=== PATIENT | female | born 1955 ===

== ENCOUNTER 2020-10-24 13:28 | Outpatient (REF) | payer OTHER, SELFPAY | END 2020-10-24 13:29 | disposition home or self-care (01) | LOC: HO.LAB 13:28 | PROVIDERS: Visit Provider Internal Medicine | DX: Z20.822 Contact with and (suspected) exposure to COVID-19 (principal) | CPT/HCPCS: 36415; C9803; U0003; U0005 ==

== ENCOUNTER 2020-11-02 10:21 | Outpatient (REF) | payer OTHER, SELFPAY ==
[2020-11-02 11:36] LABS: Hematocrit 40.6 % (37-47); Hemoglobin 13.1 g/dl (12.0-16.0); Mean Corpuscular HGB Conc 32.3 g/dl (31.0-35.0); Mean Corpuscular Hemoglobin 27.8 pg (27.0-33.0); Mean Platelet Volume 12.9 fL (9.4-12.3); Red Blood Count 4.72 X10*6/uL (4.20-5.50); Red Cell Distribution Width 15.6 % (11.0-16.0); White Blood Count 6.4 X10*3/uL (4.8-10.8)
[2020-11-02 11:51] LABS: Platelet Count 75 X10*3/uL (160-400)
[2020-11-02 12:10] LABS: Alanine Aminotransferase 10 U/L (0-31); Albumin Level 4.2 g/dL (3.5-5.0); Alkaline Phosphatase 98 U/L (39-117); Anion Gap 13 (12-20); Aspartate Amino Transferase 15 U/L (5-31); Bilirubin Direct 0.2 mg/dL (0.0-0.5); Bilirubin Total 0.5 mg/dL (0.0-1.0); Blood Urea Nitrogen 15 mg/dL (9-16); Calcium 9.4 mg/dL (8.4-10.2); Carbon Dioxide 24 mmol/L (22-29); Chloride 107 mmol/L (96-108); Estimated Glomerular Filt Rate > 60; Glucose Random 88 mg/dL (60-115); Sodium 140 mmol/L (135-145); Total Protein 7.5 g/dL (6.5-8.0); ~HepC Num1 0.12 S/CO (0.00-0.79); ~Hepatitis C Antibody Nonreactive (Nonreactive)
[2020-11-03 17:11] LABS: Absolute CD3 Count 1320 cells/uL (840-3060); Absolute CD4 Count 172 cells/uL (490-1740); Absolute CD8 Count 1124 cells/uL (180-1170); Absolute Lymphocytes 1622 cells/uL (850-3900); CD4 CD8 Ratio 0.15 (0.86-5.00); Percent CD3 Cells 81 % (57-85); Percent CD4 Cells 11 % (30-61); Percent CD8 Cells 69 % (12-42)
[2020-11-05 07:57] LABS: HIV RNA PCR Qn Copies 81 copies/mL (NOT DETECTED); HIV RNA PCR Qn Log Copies 1.91 (NOT DETECTED)
== END 2020-11-02 10:22 | disposition home or self-care (01) ==
LOC: HO.LAB 10:21
PROVIDERS: PCP Internal Medicine; Visit Provider Internal Medicine
DX: B20 Human immunodeficiency virus [HIV] disease (principal)
CPT/HCPCS: 36415; 80048; 80076; 85027; 86359; 86360; 86803; 87536

== ENCOUNTER → 2020-11-18 10:55 | Outpatient (BNVA) | payer OTHER, SELFPAY | PROVIDERS: PCP Internal Medicine; Visit Provider Internal Medicine ==

== ENCOUNTER → 2020-11-28 13:54 | Outpatient (BNVA) | payer OTHER, SELFPAY | PROVIDERS: PCP Internal Medicine; Visit Provider Internal Medicine | DX: B20 Human immunodeficiency virus [HIV] disease (principal) | CPT/HCPCS: 99212 ==

== ENCOUNTER 2020-12-26 09:24 | Outpatient (REF) | payer OTHER, SELFPAY ==
[2020-12-31 02:42] LABS: HPV 16 RNA NOT DETECTED (NOT DETECTED); HPV mRNA E6/E7 rflx Detected (Not Detected)
== END 2020-12-26 09:25 | disposition home or self-care (01) ==
LOC: HO.LAB 09:24
PROVIDERS: PCP Internal Medicine; Visit Provider Obstetrics & Gynecology
DX: Z01.419 Encounter for gynecological examination (general) (routine) without abnormal findings (principal); Z11.51 Encounter for screening for human papillomavirus (HPV)
CPT/HCPCS: 87624; 87625; 88141; 88142

== ENCOUNTER → 2021-01-31 09:27 | Outpatient (BNVA) | payer OTHER, SELFPAY | PROVIDERS: PCP Internal Medicine; Visit Provider Nurse Practitioner ==

== ENCOUNTER 2021-02-01 14:12 | Outpatient (REF) | payer OTHER, SELFPAY | END 2021-02-01 14:13 | disposition home or self-care (01) | LOC: HO.LAB 14:12 | PROVIDERS: Visit Provider Internal Medicine | DX: Z20.822 Contact with and (suspected) exposure to COVID-19 (principal) | CPT/HCPCS: C9803; U0003; U0005 ==

== ENCOUNTER 2021-02-14 08:49 | Outpatient (REF) | payer OTHER, SELFPAY | END 2021-02-14 08:50 | disposition home or self-care (01) | LOC: HO.LAB 08:49 | PROVIDERS: PCP Internal Medicine; Visit Provider Obstetrics & Gynecology | DX: N87.0 Mild cervical dysplasia (principal) | CPT/HCPCS: 57454; 88305 ==

== ENCOUNTER 2021-02-17 08:46 | Outpatient (REF) | payer OTHER, SELFPAY ==
--- NOTE | ~2021-02-17 | MM_ITS ---
EXAMINATION: MM SCREENING DIGITAL BREAST TOMOSYNTHESIS, BILATERAL CLINICAL INFORMATION: Screening. Asymptomatic. The lifetime risk of breast cancer based on the Tyrer-Cuzick Model is 4%. COMPARISON: Mammography: 07/03/2019, 06/27/2018, 06/25/2017, 04/26/2016 TECHNIQUE: Digital breast tomosynthesis is performed in both the craniocaudal and mediolateral oblique views along with computer-aided detection (CAD). Synthesized 2D images are generated from the tomosynthesis. FINDINGS: There are scattered areas of fibroglandular density (ACR BI-RADS breast composition Category b). There are no significant masses, abnormal calcifications, or other abnormalities. There is a circumscribed intramammary node approximately 4 mm posterior upper outer left breast and a circumscribed intramammary node approximately 5 mm mid upper outer right breast without significant change from prior exam 2014. No developing density. The skin contours are smooth. No significant changes. MM/MM tomosynthesis screening BI IMPRESSION: No significant changes from prior exams. ASSESSMENT: BI-RADS 2: Benign RECOMMENDATION: Routine annual mammography screening. This patient's information was entered into a reminder system with a target due date for their next mammogram.
== END 2021-02-17 08:47 | disposition home or self-care (01) ==
LOC: HO.MAMMO 08:46
PROVIDERS: Visit Provider Obstetrics & Gynecology
DX: Z12.31 Encounter for screening mammogram for malignant neoplasm of breast (principal)
CPT/HCPCS: 77063; 77067

== ENCOUNTER → 2021-02-28 12:55 | Outpatient (BNVA) | payer OTHER, SELFPAY | PROVIDERS: PCP Internal Medicine; Visit Provider Obstetrics & Gynecology ==

== ENCOUNTER → 2021-03-06 10:32 | Outpatient (BNVA) | payer OTHER, SELFPAY | PROVIDERS: PCP Internal Medicine; Visit Provider Obstetrics & Gynecology | DX: N87.0 Mild cervical dysplasia (principal) | CPT/HCPCS: 99212 ==

== ENCOUNTER 2021-03-10 10:46 | Day surgery (SDC) | payer OTHER, SELFPAY ==
--- NOTE | 2021-03-08 11:58 | HO.ANESPROP2 ---
Documented by User: Dalia Cast 03/08/21 12:00 HPI - Anesthesia Eval Consult details Narrative: 65yo F for Cone LEEP PMFSH Active Problems Active Problems: All Active Problems (Updated 02/28/21 @ 13:29 by Geo Tariq MD) MUSHTAQ I (cervical intraepithelial neoplasia I) (Acute) LGSIL (low grade squamous intraepithelial dysplasia) (Acute) Family history of colon cancer (Acute) Well woman exam (Acute) Tobacco abuse (Acute) Hypertriglyceridemia (Acute) Carpal tunnel syndrome, left (Acute) Anxiety and depression (Acute) HIV (human immunodeficiency virus infection) (Acute) Past Medical History Medical History Anxiety and depression Carpal tunnel syndrome, left MUSHTAQ II (cervical intraepithelial neoplasia II) COVID-19 vaccine administered Dysplasia of cervix, low grade (MUSHTAQ 1) HIV (human immunodeficiency virus infection) Hypertriglyceridemia Insomnia Osteoporosis Tobacco abuse Family History Family History Father Lung cancer Mother Colon cancer CVD (cardiovascular disease) Stroke Maternal Grandmother Uterine cancer Sister Breast cancer Surgical History Surgical History History of orthopedic surgery History of surgery History of tubal ligation Hx of colonoscopy Social History Social History (Updated 03/10/21 @ 11:31 by Katie Hutson) Alcohol intake: never Patient Tobacco Use Status: Current everyday Tobacco user Cigarettes Per Day: 6 Smoked in Last 30 Days: Yes Use of substances other than those prescribed or required for medical reasons: No Are you DNR?: No Advance Directives: No Advance Directives Information Provided: Yes Meds Allergies Allergy/AdvReac Type Severity Reaction Status Date / Time No Known Allergies Allergy Verified 03/10/21 10:54 [No Known Allergies*] Exam Exam Date and Time: March 08, 2021 115 Assessment and Plan Assessment Anesthesia Assessment: Chart Reviewed Documented by User: Katie Hutson 03/10/21 11:33 [facility] Past Medical History Medical History Anxiety and depression Carpal tunnel syndrome, left MUSHTAQ II (cervical intraepithelial neoplasia II) COVID-19 vaccine administered Dysplasia of cervix, low grade (MUSHTAQ 1) HIV (human immunodeficiency virus infection) Hypertriglyceridemia Insomnia Osteoporosis Tobacco abuse Family History Family History Father Lung cancer Mother Colon cancer CVD (cardiovascular disease) Stroke Maternal Grandmother Uterine cancer Sister Breast cancer Family history of problems with anesthesia: No Surgical History Surgical History History of orthopedic surgery History of surgery History of tubal ligation Hx of colonoscopy History of Problems with Anesthesia: No Social History Social History (Updated 03/10/21 @ 11:31 by Katie Hutson) Alcohol intake: never Patient Tobacco Use Status: Current everyday Tobacco user Cigarettes Per Day: 6 Smoked in Last 30 Days: Yes Use of substances other than those prescribed or required for medical reasons: No Are you DNR?: No Advance Directives: No Advance Directives Information Provided: Yes Meds Allergies Allergy/AdvReac Type Severity Reaction Status Date / Time No Known Allergies Allergy Verified 03/10/21 10:54 [No Known Allergies*] Exam Height,Weight and Vital Signs: Vital Signs Temp Pulse Resp BP Pulse Ox 03/10/21 11:00 99.0 F 81 16 146/76 H 98 Airway Mallampati Class: II TM Dist: >3cm Neck ROM: Full Loose/Missing/Broken Teeth: Yes Heart: RRR Lungs: CTAB Assessment and Plan Assessment Anesthesia Assessment: Anesthesia Plan Discussed and Chart Reviewed Final Anesthetic Review NPO: Yes ASA Class: II Final Preanesthetic Review: No Changes in Pt Med Stat, Meds/Allgs Chart Reviewed, Consent Obtained/Reviewed and Anes Risks/Benef Reviewed Patient Risk: Low Procedure Risk: Low Assessment/Block/Sedation in SS: Assess/Block/Sedation-SS Anesthetic Plan Anesthetic Plan: GA Disposition: Standard PACU
[2021-03-10 11:00] VITALS: BP 146/76; PULSE 81; RESP 16; TEMP 37.2; O2SAT 98; BMI 21.4
--- NOTE | 2021-03-10 11:11 | MHC.SHP ---
Pre-Procedural Eval Section A The patient is an INPATIENT: No Changes since office visit: No Cold of Flu in the past 2 weeks, No New Medical Problems, No Changes in Medication and No Patient answered all questions The History & Physical has been completed within 30 days and I have reviewed it.: Yes Section B Chief Complaint: mild cervical dysplasia Allergies: Allergies Allergy/AdvReac Type Severity Reaction Status Date / Time No Known Allergies Allergy Verified 03/10/21 10:54 [No Known Allergies*] Plan Diagnosis/Plan: Unchanged I have reviewed the history and physical and performed a pertinent physical examination on my patient. No changes have occurred unless specified.
--- NOTE | 2021-03-10 11:52 | PM.OP ---
Brief Operative Note Date of Service: 09/02/20 Pre-op diagnosis: Persistent MUSHTAQ I with + ECC Post-op diagnosis: same Procedure: LEEP CONE with post CONE ECC Surgeon: Geo Tariq MD Anesthesia: local and other (Paracervical block) Was an Telecommunication Engineer used for this Procedure?: No Estimated blood loss (mL): 0 Pathology: other (Cerv cone , Endocx, Post cone ECC) Condition: stable Disposition: other (Home)
--- NOTE | 2021-03-10 11:53 | P.OP_ITS ---
Operative Note Operative Note Date of Service: 09/02/20 Narrative: Preop diagnosis: Persistent MUSHTAQ I with + ECC Operation: LEEP Cone with post cone ECC Post op diagnosis: same Anesthesia: paracervical block Complications: none Pathology: cervical Cone with suture @ 12 o'clock with endocervix & post cone RCC QBL: minimal Procedure: The patient was put in the dorsal lithotomy position, was prepped and draped in the usual sterile fashion. A sterile speculum was inserted inside the pa tient vagina. Using Lugol solution the cervix with Dyed with Lugol solution to identifiy the abnormal demarcating line. 10 cc of Marcaine0.5% with epinephrine were given at 2,4 , 8, and 10 o'clock. Using a Large-size loop wire, the cervical was excised followed by the endocervix, post cone ECC was done afterwards. Hemostasis was assured using cautery and Monsel solution. All instruments were taken out of the patient's vaginal cavity. the patient tolerated the procedure well and was discharged home with the following instructions: call if temperature is above 100.4, vaginal bleeding, abdominal pain or nausea or vomiting. Follow-up in the office in 2 weeks for postop visit
[2021-03-10 12:03] VITALS: BP 114/65; PULSE 86; RESP 14; TEMP 36.7; O2SAT 100
[2021-03-10 12:08] VITALS: BP 118/65; PULSE 84; RESP 16; O2SAT 99
[2021-03-10 12:13] VITALS: BP 122/72; PULSE 90; RESP 16; O2SAT 99
[2021-03-10] MEDS: oxyCODONE HCl Immed Release 5 MG TABLET PO (12:14)
[2021-03-10] MEDS: Acetaminophen 325 MG TABLET 650 MG PO (12:15)
[2021-03-10 12:18] VITALS: BP 128/83; PULSE 94; RESP 16; O2SAT 99
[2021-03-10 12:33] VITALS: BP 145/85; PULSE 90; RESP 16; TEMP 36.7; O2SAT 99
== END 2021-03-10 13:10 ==
LOC: HO.SSS 10:46
PROVIDERS: PCP Internal Medicine; Visit Provider Obstetrics & Gynecology
PROC: 0UBC7ZZ Excision of Cervix, Via Natural or Artificial Opening (ICD-10-PCS; CPT 57522; principal; 2021-03-10 12:30)
DX: N87.0 Mild cervical dysplasia (principal); F41.8 Other specified anxiety disorders; B20 Human immunodeficiency virus [HIV] disease; M81.0 Age-related osteoporosis without current pathological fracture; Z79.899 Other long term (current) drug therapy; F17.210 Nicotine dependence, cigarettes, uncomplicated
CPT/HCPCS: 57522; 88305; 88307; J1100; J2250; J2405; J3010

== ENCOUNTER → 2021-03-22 11:28 | Outpatient (BNVA) | payer OTHER, SELFPAY | PROVIDERS: PCP Internal Medicine; Visit Provider Obstetrics & Gynecology ==

== ENCOUNTER 2021-06-05 09:56 | Outpatient (REF) | payer OTHER, SELFPAY | END 2021-06-05 09:57 | disposition home or self-care (01) | LOC: HO.LAB 09:56 | PROVIDERS: PCP Internal Medicine; Visit Provider Internal Medicine | DX: Z20.822 Contact with and (suspected) exposure to COVID-19 (principal) | CPT/HCPCS: C9803; U0003; U0005 ==

== ENCOUNTER 2021-06-27 09:20 | Outpatient (REF) | payer OTHER, SELFPAY ==
[2021-06-27 09:55] LABS: Hematocrit 43.9 % (37-47); Hemoglobin 14.8 g/dl (12.0-16.0); Mean Corpuscular HGB Conc 33.7 g/dl (31.0-35.0); Mean Corpuscular Hemoglobin 29.1 pg (27.0-33.0); Mean Corpuscular Volume 86.4 fL (80-98); Mean Platelet Volume 12.2 fL (9.4-12.3); Red Blood Count 5.08 X10*6/uL (4.20-5.50); Red Cell Distribution Width 14.1 % (11.0-16.0); White Blood Count 5.7 X10*3/uL (4.8-10.8)
[2021-06-27 09:57] LABS: Platelet Count 59 X10*3/uL (160-400)
[2021-06-27 10:50] LABS: Alanine Aminotransferase 11 U/L (0-31); Albumin Level 4.5 g/dL (3.5-5.0); Alkaline Phosphatase 100 U/L (39-117); Anion Gap 12 (12-20); Aspartate Amino Transferase 15 U/L (5-31); Bilirubin Direct 0.2 mg/dL (0.0-0.5); Bilirubin Total 0.6 mg/dL (0.0-1.0); Blood Urea Nitrogen 11 mg/dL (9-16); Calcium 9.8 mg/dL (8.4-10.2); Carbon Dioxide 25 mmol/L (22-29); Chloride 110 mmol/L (96-108); Estimated Glomerular Filt Rate > 60; Glucose Random 101 mg/dL (60-115); Sodium 143 mmol/L (135-145); Total Protein 7.9 g/dL (6.5-8.0)
[2021-06-27 11:16] LABS: ~HepC Num1 0.09 S/CO (0.00-0.79); ~Hepatitis C Antibody Nonreactive (Nonreactive)
[2021-06-28 12:26] LABS: Absolute CD3 Count 902 cells/uL (840-3060); Absolute CD4 Count 123 cells/uL (490-1740); Absolute CD8 Count 776 cells/uL (180-1170); Absolute Lymphocytes 1092 cells/uL (850-3900); CD4 CD8 Ratio 0.16 (0.86-5.00); Percent CD3 Cells 83 % (57-85); Percent CD4 Cells 11 % (30-61); Percent CD8 Cells 71 % (12-42)
[2021-06-30 14:55] LABS: HIV RNA PCR Qn Copies 240 copies/mL (NOT DETECTED); HIV RNA PCR Qn Log Copies 2.38 (NOT DETECTED)
== END 2021-06-27 09:21 | disposition home or self-care (01) ==
LOC: HO.LAB 09:20
PROVIDERS: PCP Internal Medicine; Visit Provider Internal Medicine
DX: B20 Human immunodeficiency virus [HIV] disease (principal)
CPT/HCPCS: 36415; 80048; 80076; 85027; 86359; 86360; 86803; 87536

== ENCOUNTER 2021-07-03 20:00 | Emergency (ER) | payer OTHER, SELFPAY ==
--- NOTE | ~2021-07-03 | XR_ITS ---
EXAMINATION: X-RAY THORACIC SPINE X-RAY LUMBAR SPINE CLINICAL INFORMATION: Back pain. COMPARISON: Chest radiograph, 2 views, dated from 06/22/2019. TECHNIQUE: 3 views of the thoracic spine. 3 views of the lumbar spine. FINDINGS: Thoracic spine: No evidence of acute fractures or malalignment. Vertebral body heights and disc spaces are preserved. Posterior elements appear intact. Limited visualization of the clavicles and ribs demonstrate no abnormalities. Visualized lungs are clear. Lumbar spine: No evidence of acute compression deformities. There is very minimal 2 to 3 mm of retrolisthesis of L5 on S1. Otherwise, alignment is entirely anatomic. There is moderate disc space narrowing and facet arthropathy at L5-S1 leading to certain degree of central canal stenosis and neural foraminal encroachment. Visualized bony structures of the pelvis are intact. XR/XR thoracic spine 3V IMPRESSION: 1. Thoracic spine: No acute compression deformities or malalignment. 2. Lumbar spine: No acute compression deformities or traumatic listhesis. Moderate number spondylosis at L5-S1 with mild retrolisthesis and bilateral facet arthropathy leading to neural foraminal encroachment.
--- NOTE | ~2021-07-03 | XR_ITS ---
EXAMINATION: X-RAY THORACIC SPINE X-RAY LUMBAR SPINE CLINICAL INFORMATION: Back pain. COMPARISON: Chest radiograph, 2 views, dated from 06/22/2019. TECHNIQUE: 3 views of the thoracic spine. 3 views of the lumbar spine. FINDINGS: Thoracic spine: No evidence of acute fractures or malalignment. Vertebral body heights and disc spaces are preserved. Posterior elements appear intact. Limited visualization of the clavicles and ribs demonstrate no abnormalities. Visualized lungs are clear. Lumbar spine: No evidence of acute compression deformities. There is very minimal 2 to 3 mm of retrolisthesis of L5 on S1. Otherwise, alignment is entirely anatomic. There is moderate disc space narrowing and facet arthropathy at L5-S1 leading to certain degree of central canal stenosis and neural foraminal encroachment. Visualized bony structures of the pelvis are intact. XR/XR lumbar spine 2-3V IMPRESSION: 1. Thoracic spine: No acute compression deformities or malalignment. 2. Lumbar spine: No acute compression deformities or traumatic listhesis. Moderate number spondylosis at L5-S1 with mild retrolisthesis and bilateral facet arthropathy leading to neural foraminal encroachment.
[2021-07-03 20:17] VITALS: BP 158/86; PULSE 82; RESP 16; TEMP 36.7; O2SAT 97; BMI 21.2
--- NOTE | 2021-07-03 23:52 | ED.BACK ---
HPI - Back Pain/Injury General Chief Complaint: Back Pain/Injury Stated Complaint: Back pain/Headache Time Seen by Provider: 07/03/21 23:08 Source: patient Mode of arrival: ambulatory Limitations: no limitations History of Present Illness HPI Narrative: Patient presents to the ED for thoracic/lumbar back pain. Patient states no fever, chills, nausea, abdominal pain, dysuria, hematuria, flank pain, chest pain, shortness of breath, or urinary/bowel incontinence. Related Data Previous Rx's Medication Instructions Recorded dolutegravir 50 mg tablet (Tivicay) 50 mg PO DAILY 90 Days #90 tab 11/28/20 emtricitabine 200 mg-tenofovir 1 tab PO DAILY #90 tab 11/28/20 alafenamide fumarate 25 mg tablet zolpidem 10 mg tablet 10 mg PO BEDTIME PRN 30 Days #90 06/29/21 tab naproxen 500 mg tablet 500 mg PO BID PRN 10 Days #20 tab 07/04/21 prednisone 20 mg tablet 60 mg PO DAILY 5 Days #15 tab 07/04/21 Allergies Allergy/AdvReac Type Severity Reaction Status Date / Time No Known Allergies Allergy Verified 06/29/21 10:34 [No Known Allergies*] Review of Systems Review of Systems: Yes all other systems are reviewed and are negative Constitutional: Constitutional: Reports as per HPI and Reports no additional constitutional complaints Eyes: Eyes: Reports as per HPI and Reports no additional eye complaints ENT: Reports system reviewed and no additional complaints, except as documented and Reports as per HPI Cardiovascular: Cardiovascular: Reports as per HPI and Reports no additional cardiovascular complaints Respiratory: Respiratory: Reports as per HPI and Reports no additional respiratory complaints Gastrointestinal: Gastrointestinal: Reports as per HPI and Reports no additional gastrointestinal complaints Genitourinary: Genitourinary: Reports no additional female genitourinary complaints and Reports as per HPI Musculoskeletal: Musculoskeletal: Reports no additional musculoskeletal complaints, Reports as per HPI and Reports back pain Neurologic: Reports system reviewed and no additional complaints, except as documented and Reports as per HPI Psychiatric: Psychiatric: Reports no additional psychiatric complaints and Reports as per HPI PMFSH Past Medical History Medical History (Updated 07/04/21 @ 00:37 by MONTY Crowe) Carpal tunnel syndrome, left MUSHTAQ II (cervical intraepithelial neoplasia II) HIV (human immunodeficiency virus infection) Hx LEEP (loop electrosurgical excision procedure), cervix, Hypertriglyceridemia Insomnia Osteoporosis Skin cancer Thrombocytopenia Tobacco abuse Surgical History History of orthopedic surgery History of surgery History of tubal ligation Hx of colonoscopy Family History Family History Father Lung cancer Mother Colon cancer CVD (cardiovascular disease) Stroke Maternal Grandmother Uterine cancer Sister Breast cancer Social History Social History Housing: Apartment Alcohol intake: never Patient Tobacco Use Status: Current everyday Tobacco user Cigarettes Per Day: 6 e-Cigarette/Vaping Use: Never Used Second Hand Smoke Exposure: No Advance Directives: No Advance Directives Information Provided: No Patient : No service: No Current occupational status: disabled Physical Exam Vital Signs: Vital Signs: Last Vital Signs Temp 98.1 F 07/03/21 20:17 Pulse 82 07/03/21 20:17 Resp 16 07/03/21 20:17 BP 158/86 H 07/03/21 20:17 Pulse Ox 97 07/03/21 20:17 Body Mass Index 21.2 Const: General: cooperative, healthy appearing, comfortable, no acute distress, well developed, alert, awake and Physically active Orientation/consciousness: oriented to time and patient oriented x3 HENMT: Head: Yes normal to inspection, Yes No palpable skull fracture present, Yes normocephalic, Yes atraumatic and No abrasion Eyes: General: appearance normal, both eyes and all related structures Neck: Neck: Yes normal visual inspection, Yes full ROM, Yes no lymphadenopathy, Yes no meningeal signs, Yes trachea midline, Yes supple and No tender Chest: Chest palpation & inspection: normal inspection of the chest and normal palpation of entire chest wall Resp: Effort & Inspection: normal respiratory effort and able to speak in complete sentences Auscultation: clear to auscultation bilaterally Cardio: Jugular venous distension: no JVD Heart sounds: S1 normal heart sound present and S2 normal heart sound present GI: Inspection: Yes normal to inspection and Yes abdominal wall ecchymosis Palpation (GI): Soft to palpation, not firm, nontender, no guarding and not rigid : General: No CVA tenderness and Yes no CVA tenderness Back/Spine/Pelvis: Back: no CVA tenderness, No CVA tenderness and back tenderness (thoracic/lumbar spine tenderness.) Skin: General skin exam: no rashes or lesions noted and elasticity normal Neuro: General: oriented to time, patient oriented x3, gait normal, no meningeal signs and CN's II-XI intact bilaterally Cranial nerves: Yes CN's II-XII intact bilaterally Extrem: General: Yes normal to inspection and Yes full ROM Right upper extremity: normal to inspection Psych: Appearance: grossly normal, well kempt and not disheveled Course Course Course Narrative: Patient is not in any distress. patient sent for xrays. Meds ordered Reevaluation(s) Reevaluation #1: Thoracic x-ray normal. Lumbar x-ray shows severe arthritis with possible nerve impingement. Patient to be discharged. Not Suspecting cauda equinus syndrome. Not suspecting epidural abscess. Time: 12:36 MDM - Back Pain/Injury MDM Narrative Medical decision making narrative: Lumbar radiculopathy Discharge Plan Discharge Clinical Impression: Lumbar radiculopathy Patient Disposition: Home, Self-Care Instructions: Lumbar Radiculopathy (ED) Additional Instructions: X-ray shows arthritis of the spine with signs of possible nerve impingement. You need MRI by PCP for follow-up. Please follow-up with primary care provider. Return to ED for any urinary/bowel incontinence, severe back pain, paralysis of lower extremities, nausea, vomiting, flank pain, fever, chills, or any other concerning symptoms. Prescriptions: New naproxen 500 mg tablet 500 mg PO BID PRN (Reason: pain) 10 Days Qty: 20 RF: 0 prednisone 20 mg tablet 60 mg PO DAILY 5 Days Qty: 15 RF: 0 No Action zolpidem 10 mg tablet 10 mg PO BEDTIME PRN (Reason: insomnia) 30 Days Qty: 90 RF: 1 Tivicay 50 mg tablet 50 mg PO DAILY 90 Days Qty: 90 RF: 1 emtricitabine-tenofovir alafen 200-25 mg tablet 1 tab PO DAILY Qty: 90 RF: 1 Stand Alone Forms: Work/School Release Discharge Date/Time: 07/04/21 00:52 Print Language: Singaporean
[2021-07-04] MEDS: Cyclobenzaprine HCl 5 MG TABLET PO (00:24)
[2021-07-04] MEDS: Ibuprofen 800 MG TABLET PO (00:24)
== END 2021-07-04 00:52 | disposition home or self-care (01) ==
PROVIDERS: Emergency Provider Internal Medicine; PCP Internal Medicine
DX: M47.26 Other spondylosis with radiculopathy, lumbar region (principal); M54.6 Pain in thoracic spine
CPT/HCPCS: 72072; 72100; 99283; 99284

== ENCOUNTER → 2021-07-10 11:33 | Outpatient (BNVA) | payer OTHER, SELFPAY | PROVIDERS: Visit Provider Internal Medicine | DX: B20 Human immunodeficiency virus [HIV] disease (principal) | CPT/HCPCS: 99212 ==

== ENCOUNTER 2021-07-25 10:26 | Outpatient (REF) | payer OTHER, SELFPAY ==
--- NOTE | ~2021-07-25 | MM_ITS ---
EXAMINATION: BONE DENSITOMETRY CLINICAL INDICATION: Age-related osteoporosis without current pathological fracture. COMPARISON: Previous BD dated 07/03/2019 and baseline BD dated 10/07/2012. TECHNIQUE: Using a [employer] DXA System (software version: 13.1) manufactured by [employer], dual-energy x-ray absorptiometry was performed of the lumbar spine and left hip. The images are of good technical quality. Summary results are attached. FINDINGS: AP SPINE L1-L4: Current: BMD 0.902 g/cm2, Z-score -0.4, T-score -2.3, osteopenia, 3.8% decrease from previous, 9.8% decrease from baseline (<5% change is not significant). Prior: BMD 0.938 g/cm2. Baseline: BMD 1.000 g/cm2. LEFT FEMUR, NECK: Current: BMD 0.653 g/cm2, Z-score -1.1, T-score -2.8, osteoporosis. Prior: BMD 0.647 g/cm2. Baseline: BMD 0.716 g/cm2. LEFT FEMUR, TOTAL: Current: BMD 0.734 g/cm2, Z-score -0.7, T-score -2.2, osteopenia, 1.1% decrease from previous, 11.8% decrease from baseline (<5% change is not significant). Prior: BMD 0.742 g/cm2. Baseline: BMD 0.832 g/cm2. IDENTIFIED RISK FACTORS: Menopause, glucocorticoids (chronic), height loss, tobacco use (current smoker). HISTORY OF FRACTURE: None listed. MEDICATIONS: Calcium supplements or multivitamin, vitamin D. MM/XR DEXA axial skeleton IMPRESSION: 1. DIAGNOSIS: Osteoporosis based on the lowest T-score value of -2.8 in the femoral neck applying World Health Organization criteria. 2. 2. 10-YEAR FRACTURE RISK PREDICTION, FRAX: According to the guidelines, FRAX calculation should only be performed on patients in the osteopenia bone density category. 3. Treatment Recommendations: NOF guidelines recommend consideration for treatment in postmenopausal women and men age 50 and older presenting with the following: -A hip or vertebral (clinical or morphometric) fracture. -T-score less than or equal to -2.5 at the femoral neck or spine after appropriate evaluation to exclude secondary causes. -Low bone mass at the hip or spine and a 10-year fracture probability by FRAX of greater than or equal to 3% for hip fracture or greater than or equal to 20% for major osteoporotic fracture based on the [place] adapted WHO algorithm. 4. Other Recommendations: All treatment decisions require clinical judgment and consideration of individual patient factors, including patient preferences, comorbidities, previous drug use, risk factors not captured in the FRAX model (e.g. frailty, falls, vitamin D deficiency, increased bone turnover, interval significant decline in bone density) and possible under or overestimation of fracture risk by FRAX. Additional medical evaluation for secondary cause of low bone mineral density may be appropriate. FUTURE SCAN RECOMMENDATION: People with diagnosed cases of osteoporosis or at high risk for fracture should have regular bone mineral density tests. For patients eligible for Medicare, routine testing is allowed once every 2 years. The testing frequency can be increased to one year for patients who have rapidly progressing disease, those who are receiving or discontinuing medical therapy to restore bone mass, or have additional risk factors.
== END 2021-07-25 10:27 | disposition home or self-care (01) ==
LOC: HO.MAMMO 10:26
PROVIDERS: Visit Provider Internal Medicine
DX: Z13.820 Encounter for screening for osteoporosis (principal); M81.0 Age-related osteoporosis without current pathological fracture; Z78.0 Asymptomatic menopausal state; F17.200 Nicotine dependence, unspecified, uncomplicated; Z79.899 Other long term (current) drug therapy
CPT/HCPCS: 77080

== ENCOUNTER 2021-09-24 09:48 | Outpatient (REF) | payer OTHER, SELFPAY ==
[2021-09-24 10:48] LABS: COVID-19 Test Negative (Negative)
== END 2021-09-24 09:49 | disposition home or self-care (01) ==
LOC: HO.LAB 09:48
PROVIDERS: Visit Provider Internal Medicine
DX: Z20.822 Contact with and (suspected) exposure to COVID-19 (principal)
CPT/HCPCS: 36415; 87635; C9803

== ENCOUNTER 2021-11-04 08:32 | Outpatient (REF) | payer OTHER, SELFPAY ==
[2021-11-04 08:44] LABS: MANUAL DIFF FLAG NO
[2021-11-04 10:09] LABS: Alanine Aminotransferase 6 U/L (0-31); Albumin Level 4.1 g/dL (3.5-5.0); Alkaline Phosphatase 98 U/L (39-117); Anion Gap 9 (12-20); Aspartate Amino Transferase 16 U/L (5-31); Bilirubin Total 0.5 mg/dL (0.0-1.0); Blood Urea Nitrogen 15 mg/dL (9-16); Calcium 9.8 mg/dL (8.4-10.2); Carbon Dioxide 29 mmol/L (22-29); Chloride 105 mmol/L (96-108); Cholesterol 176 mg/dL; Estimated Glomerular Filt Rate > 60; Glucose Random 99 mg/dL (60-115); HDL Cholesterol 45 mg/dL; LDL Cholesterol Calculated 111 mg/dl; Potassium 4.4 mmol/L (3.3-5.1); Sodium 139 mmol/L (135-145); Total Protein 7.4 g/dL (6.5-8.0); Triglycerides 103 mg/dL
[2021-11-04 10:11] LABS: Basophils Absolute Auto 0.1 X10*3/uL (0.0-0.2); Basophils Percent Auto 1.7 % (0-2); Eosinophils Absolute Auto 0.3 X10*3/uL (0.0-0.4); Eosinophils Percent Auto 6.3 % (0-4); Hemoglobin 13.8 g/dl (12.0-16.0); Imm Gran Abs Auto 0.01 X10*3/uL (0.00-0.03); Imm Gran Pct Auto 0.2 % (0.0-0.4); Lymphocytes Absolute Auto 1.1 X10*3/uL (1.2-4.9); Lymphocytes Percent Auto 24.1 % (20-40); Mean Corpuscular HGB Conc 32.9 g/dl (31.0-35.0); Mean Corpuscular Hemoglobin 29.1 pg (27.0-33.0); Mean Corpuscular Volume 88.4 fL (80.0-98.0); Monocytes Absolute Auto 0.6 X10*3/uL (0.1-1.2); Monocytes Percent Auto 13.5 % (2-11); Neutrophils Absolute Auto 2.6 x10*3/uL (2.0-8.3); Neutrophils Percent Auto 54.2 % (45-73); Red Blood Count 4.75 X10*6/uL (4.20-5.50); Red Cell Distribution Width 14.2 % (11.0-16.0); White Blood Count 4.7 X10*3/uL (4.8-10.8)
[2021-11-04 10:15] LABS: Free T4 (Free Thyroxine) 0.92 ng/dL (0.71-1.85); Thyroid Stimulating Hormone 1.35 uIU/mL (0.32-4.0); Vitamin D 25-OH Total 28.4 ng/mL (>30)
[2021-11-04 10:40] LABS: Platelet Count 48 X10*3/uL (160-400)
[2021-11-06 05:32] LABS: Vitamin B12 413 pg/mL (200-900)
== END 2021-11-04 08:33 | disposition home or self-care (01) ==
LOC: HO.LAB 08:32
PROVIDERS: PCP Internal Medicine; Visit Provider Internal Medicine
DX: E78.1 Pure hyperglyceridemia (principal); E78.00 Pure hypercholesterolemia, unspecified
CPT/HCPCS: 36415; 80053; 80061; 82306; 82607; 82746; 84439; 84443; 85025

== ENCOUNTER 2021-12-27 09:29 | Outpatient (REF) | payer MEDICARE, MEDICAID, SELFPAY ==
[2021-12-30 09:57] LABS: HPV mRNA E6/E7 rflx Not Detected (Not Detected)
== END 2021-12-27 09:30 | disposition home or self-care (01) ==
LOC: HO.LAB 09:29
PROVIDERS: PCP Internal Medicine; Visit Provider Obstetrics & Gynecology
DX: Z01.419 Encounter for gynecological examination (general) (routine) without abnormal findings (principal); N87.0 Mild cervical dysplasia; M81.0 Age-related osteoporosis without current pathological fracture; N90.4 Leukoplakia of vulva
CPT/HCPCS: 87624; 88142

== ENCOUNTER 2022-01-08 07:56 | Outpatient (REF) | payer MEDICARE, MEDICAID, SELFPAY ==
[2022-01-08 08:15] LABS: MANUAL DIFF FLAG NO
[2022-01-08 08:34] LABS: Basophils Absolute Auto 0.1 X10*3/uL (0.0-0.2); Basophils Percent Auto 1.7 % (0-2); Eosinophils Absolute Auto 0.2 X10*3/uL (0.0-0.4); Hemoglobin 13.5 g/dl (12.0-16.0); Imm Gran Abs Auto 0.01 X10*3/uL (0.00-0.03); Imm Gran Pct Auto 0.2 % (0.0-0.4); Lymphocytes Absolute Auto 1.4 X10*3/uL (1.2-4.9); Lymphocytes Percent Auto 28.4 % (20-40); Mean Corpuscular HGB Conc 32.1 g/dl (31.0-35.0); Mean Corpuscular Hemoglobin 28.5 pg (27.0-33.0); Mean Corpuscular Volume 88.6 fL (80.0-98.0); Mean Platelet Volume 13.8 fL (9.4-12.3); Monocytes Absolute Auto 0.6 X10*3/uL (0.1-1.2); Monocytes Percent Auto 11.8 % (2-11); Neutrophils Absolute Auto 2.6 x10*3/uL (2.0-8.3); Neutrophils Percent Auto 53.9 % (45-73); Red Blood Count 4.74 X10*6/uL (4.20-5.50); Red Cell Distribution Width 13.9 % (11.0-16.0); White Blood Count 4.8 X10*3/uL (4.8-10.8)
[2022-01-08 08:35] LABS: Platelet Count 43 X10*3/uL (160-400)
[2022-01-08 09:03] LABS: Alanine Aminotransferase 11 U/L (0-31); Albumin Level 4.1 g/dL (3.5-5.0); Alkaline Phosphatase 97 U/L (39-117); Anion Gap 9 (12-20); Aspartate Amino Transferase 18 U/L (5-31); Bilirubin Direct 0.2 mg/dL (0.0-0.5); Bilirubin Total 0.5 mg/dL (0.0-1.0); Blood Urea Nitrogen 13 mg/dL (9-16); Calcium 11.1 mg/dL (8.4-10.2); Carbon Dioxide 29 mmol/L (22-29); Chloride 109 mmol/L (96-108); Estimated Glomerular Filt Rate > 60; Glucose Random 83 mg/dL (60-115); Potassium 4.3 mmol/L (3.3-5.1); Sodium 143 mmol/L (135-145); Total Protein 7.3 g/dL (6.5-8.0)
[2022-01-09 13:51] LABS: Absolute CD3 Count 1122 cells/uL (840-3060); Absolute CD4 Count 101 cells/uL (490-1740); Absolute CD8 Count 1006 cells/uL (180-1170); Absolute Lymphocytes 1294 cells/uL (850-3900); Percent CD3 Cells 87 % (57-85); Percent CD4 Cells 8 % (30-61); Percent CD8 Cells 78 % (12-42)
[2022-01-10 22:36] LABS: HIV RNA PCR Qn Copies 4340 copies/mL (NOT DETECTED); HIV RNA PCR Qn Log Copies 3.64 (NOT DETECTED)
== END 2022-01-08 07:57 | disposition home or self-care (01) ==
LOC: HO.LAB 07:56
PROVIDERS: PCP Internal Medicine; Visit Provider Internal Medicine
DX: B20 Human immunodeficiency virus [HIV] disease (principal)
CPT/HCPCS: 36415; 80048; 80076; 85025; 86359; 86360; 87536

== ENCOUNTER 2022-01-17 10:08 | Outpatient (REF) | payer MEDICARE, MEDICAID, SELFPAY | END 2022-01-17 10:09 | disposition home or self-care (01) | LOC: HO.LAB 10:08 | PROVIDERS: PCP Internal Medicine; Visit Provider Obstetrics & Gynecology | DX: N90.4 Leukoplakia of vulva (principal) | CPT/HCPCS: 56605; 88305; 88312; 88342; 88360 ==

== ENCOUNTER → 2022-01-23 10:28 | Outpatient (BNVA) | payer MEDICARE, MEDICAID, SELFPAY | PROVIDERS: PCP Internal Medicine; Visit Provider Internal Medicine | DX: B20 Human immunodeficiency virus [HIV] disease (principal) | CPT/HCPCS: 99212 ==

== ENCOUNTER → 2022-01-31 10:58 | Outpatient (BNVA) | payer MEDICARE, MEDICAID, SELFPAY | PROVIDERS: Visit Provider Obstetrics & Gynecology | DX: N90.0 Mild vulvar dysplasia (principal) | CPT/HCPCS: 99212 ==

== ENCOUNTER 2022-03-06 10:50 | Outpatient (REF) | payer MEDICARE, MEDICAID, SELFPAY | END 2022-03-06 10:51 | disposition home or self-care (01) | LOC: HO.LAB 10:50 | PROVIDERS: Visit Provider Obstetrics & Gynecology | DX: N90.0 Mild vulvar dysplasia (principal); N90.4 Leukoplakia of vulva | CPT/HCPCS: 88305; 88312; 88342; 88360 ==

== ENCOUNTER → 2022-03-19 08:54 | Outpatient (BNVA) | payer OTHER, SELFPAY | PROVIDERS: PCP Internal Medicine; Visit Provider Obstetrics & Gynecology | DX: N90.1 Moderate vulvar dysplasia (principal) | CPT/HCPCS: 99212 ==

== ENCOUNTER 2022-05-26 07:42 | Outpatient (REF) | payer OTHER, SELFPAY ==
[2022-05-29 11:46] LABS: Absolute CD3 Count 860 cells/uL (840-3060); Absolute CD4 Count 104 cells/uL (490-1740); Absolute CD8 Count 757 cells/uL (180-1170); Absolute Lymphocytes 995 cells/uL (850-3900); CD4 CD8 Ratio 0.14 (0.86-5.00); Percent CD3 Cells 86 % (57-85); Percent CD4 Cells 10 % (30-61); Percent CD8 Cells 76 % (12-42)
[2022-05-29 20:47] LABS: HIV RNA PCR Qn Copies 1070 copies/mL (NOT DETECTED); HIV RNA PCR Qn Log Copies 3.03 (NOT DETECTED)
== END 2022-05-26 07:43 | disposition home or self-care (01) ==
LOC: HO.LAB 07:42
PROVIDERS: PCP Internal Medicine; Visit Provider Internal Medicine
DX: B20 Human immunodeficiency virus [HIV] disease (principal)
CPT/HCPCS: 36415; 86359; 86360; 87536

== ENCOUNTER 2022-06-01 11:28 | Outpatient (REF) | payer OTHER, SELFPAY ==
--- NOTE | ~2022-06-01 | MM_ITS ---
EXAMINATION: MM SCREENING DIGITAL BREAST TOMOSYNTHESIS, BILATERAL CLINICAL INFORMATION: Screening. Asymptomatic. The lifetime risk of breast cancer based on the Tyrer-Cuzick Model is 8%. COMPARISON: Mammography: 02/17/2021, 07/03/2019, 06/27/2018, 06/25/2017 TECHNIQUE: Digital breast tomosynthesis is performed in both the craniocaudal and mediolateral oblique views along with computer-aided detection (CAD). Synthesized 2D images are generated from the tomosynthesis. FINDINGS: There are scattered areas of fibroglandular density (ACR BI-RADS breast composition Category b). There are no significant masses, abnormal calcifications, or other abnormalities. There are chronic small intramammary nodes posterior upper outer left breast and mid upper outer right breast again noted. No developing density. No architectural abnormality or significant changes. MM/MM tomosynthesis screening BI IMPRESSION: No mammographic evidence of malignancy. ASSESSMENT: BI-RADS 2: Benign RECOMMENDATION: Routine annual mammography screening. This patient's information was entered into a reminder system with a target due date for their next mammogram.
== END 2022-06-01 11:29 | disposition home or self-care (01) ==
LOC: HO.MAMMO 11:28
PROVIDERS: PCP Internal Medicine; Visit Provider Internal Medicine
DX: Z12.31 Encounter for screening mammogram for malignant neoplasm of breast (principal)
CPT/HCPCS: 77063; 77067

== ENCOUNTER 2022-06-08 11:19 | Outpatient (REF) | payer OTHER, SELFPAY | END 2022-06-08 11:20 | disposition home or self-care (01) | LOC: HO.LAB 11:19 | PROVIDERS: PCP Internal Medicine; Visit Provider Internal Medicine | DX: B20 Human immunodeficiency virus [HIV] disease (principal) | CPT/HCPCS: 36415; 87536; 87900; 87901; 87906; 99212 ==

== ENCOUNTER → 2022-09-26 11:26 | Outpatient (BNVA) | payer OTHER, SELFPAY | PROVIDERS: PCP Internal Medicine; Visit Provider Internal Medicine | DX: B20 Human immunodeficiency virus [HIV] disease (principal) | CPT/HCPCS: 99212 ==

== ENCOUNTER 2022-11-16 10:33 | Outpatient (REF) | payer OTHER, SELFPAY ==
[2022-11-19 14:08] LABS: Absolute CD3 Count 945 cells/uL (840-3060); Absolute CD4 Count 134 cells/uL (490-1740); Absolute CD8 Count 791 cells/uL (180-1170); Absolute Lymphocytes 1108 cells/uL (850-3900); CD4 CD8 Ratio 0.17 (0.86-5.00); Percent CD3 Cells 85 % (57-85); Percent CD4 Cells 12 % (30-61); Percent CD8 Cells 71 % (12-42)
[2022-11-20 14:58] LABS: HIV RNA PCR Qn Copies 149 Copies/mL; HIV RNA PCR Qn Log Copies 2.17 Log cps/mL
== END 2022-11-16 10:34 | disposition home or self-care (01) ==
LOC: HO.LAB 10:33
PROVIDERS: PCP Internal Medicine; Visit Provider Internal Medicine
DX: B20 Human immunodeficiency virus [HIV] disease (principal)
CPT/HCPCS: 36415; 86359; 86360; 87536; 87900; 87901; 87906

== ENCOUNTER → 2022-11-30 10:32 | Outpatient (BNVA) | payer OTHER, SELFPAY | PROVIDERS: PCP Internal Medicine; Visit Provider Internal Medicine | DX: B20 Human immunodeficiency virus [HIV] disease (principal); R05.9 Cough, unspecified | CPT/HCPCS: 99212 ==

== ENCOUNTER 2022-12-10 11:55 | Outpatient (REF) | payer OTHER, SELFPAY ==
--- NOTE | ~2022-12-10 | XR_ITS ---
EXAMINATION: XR CHEST CLINICAL INFORMATION: Cough COMPARISON: 06/22/2019 TECHNIQUE: 2 views of the chest were obtained. FINDINGS: No significant abnormality is noted involving the heart, lungs, mediastinum, bony thorax or soft tissues. XR/XR chest 2V IMPRESSION: Unremarkable examination.
== END 2022-12-10 11:56 | disposition home or self-care (01) ==
LOC: HO.XRAY 11:55
PROVIDERS: PCP Internal Medicine; Visit Provider Internal Medicine
DX: R05.9 Cough, unspecified (principal)
CPT/HCPCS: 71046

== ENCOUNTER 2022-12-15 08:57 | Outpatient (REF) | payer OTHER, SELFPAY ==
[2022-12-15 09:16] LABS: MANUAL DIFF FLAG NO
[2022-12-15 09:31] LABS: Basophils Absolute Auto 0.1 X10*3/uL (0.0-0.2); Basophils Percent Auto 1.8 % (0-2); Eosinophils Absolute Auto 0.1 X10*3/uL (0.0-0.4); Eosinophils Percent Auto 4.1 % (0-4); Hematocrit 43.8 % (37.0-47.0); Hemoglobin 14.4 g/dl (12.0-16.0); Imm Gran Abs Auto 0.01 X10*3/uL (0.00-0.03); Imm Gran Pct Auto 0.3 % (0.0-0.4); Lymphocytes Absolute Auto 0.7 X10*3/uL (1.2-4.9); Lymphocytes Percent Auto 21.6 % (20-40); Mean Corpuscular HGB Conc 32.9 g/dl (31.0-35.0); Mean Corpuscular Hemoglobin 28.2 pg (27.0-33.0); Mean Corpuscular Volume 85.9 fL (80.0-98.0); Monocytes Absolute Auto 0.5 X10*3/uL (0.1-1.2); Monocytes Percent Auto 13.2 % (2-11); Platelet Count 29 X10*3/uL (160-400); Red Cell Distribution Width 14.7 % (11.0-16.0); White Blood Count 3.4 X10*3/uL (4.8-10.8)
[2022-12-15 10:16] LABS: Alanine Aminotransferase 10 U/L (0-31); Albumin Level 4.1 g/dL (3.5-5.0); Alkaline Phosphatase 88 U/L (39-117); Anion Gap 10 (12-20); Aspartate Amino Transferase 19 U/L (5-31); Bilirubin Total 0.5 mg/dL (0.0-1.0); Blood Urea Nitrogen 9 mg/dL (9-16); Calcium 9.2 mg/dL (8.4-10.2); Carbon Dioxide 26 mmol/L (22-29); Chloride 109 mmol/L (96-108); Cholesterol 184 mg/dL; Estimated Glomerular Filt Rate > 60; Glucose Random 101 mg/dL (60-115); HDL Cholesterol 51 mg/dL; LDL Cholesterol Calculated 118 mg/dl; Potassium 4.2 mmol/L (3.3-5.1); Sodium 141 mmol/L (135-145); Total Protein 7.3 g/dL (6.5-8.0); Triglycerides 75 mg/dL
[2022-12-15 10:33] LABS: Folate 7.8 ng/mL (> or = 4.0); Free T4 (Free Thyroxine) 0.88 ng/dL (0.71-1.85); Thyroid Stimulating Hormone 0.83 uIU/mL (0.32-4.0); Vitamin B12 582 pg/mL (200-900); Vitamin D 25-OH Total 34.2 ng/mL (>30)
== END 2022-12-15 08:58 | disposition home or self-care (01) ==
LOC: HO.LAB 08:57
PROVIDERS: PCP Internal Medicine; Visit Provider Internal Medicine
DX: E78.00 Pure hypercholesterolemia, unspecified (principal); E78.1 Pure hyperglyceridemia; M81.0 Age-related osteoporosis without current pathological fracture
CPT/HCPCS: 36415; 80053; 80061; 82306; 82607; 82746; 84439; 84443; 85025

== ENCOUNTER 2023-01-24 11:40 | Outpatient (REF) | payer OTHER, SELFPAY ==
[2023-01-30 06:03] LABS: HPV mRNA E6/E7 rflx Not Detected (Not Detected)
== END 2023-01-24 11:41 | disposition home or self-care (01) ==
LOC: HO.LNP 11:40
PROVIDERS: PCP Internal Medicine; Visit Provider Obstetrics & Gynecology
DX: Z01.419 Encounter for gynecological examination (general) (routine) without abnormal findings (principal); Z11.51 Encounter for screening for human papillomavirus (HPV)
CPT/HCPCS: 87624; 88142

== ENCOUNTER 2023-03-07 12:44 | Outpatient (REF) | payer OTHER, SELFPAY | END 2023-03-07 12:45 | disposition home or self-care (01) | LOC: HO.LNP 12:44 | PROVIDERS: PCP Internal Medicine; Visit Provider Obstetrics & Gynecology | DX: R87.610 Atypical squamous cells of undetermined significance on cytologic smear of cervix (ASC-US) (principal); N90.1 Moderate vulvar dysplasia | CPT/HCPCS: 57454; 88305; 99212 ==

== ENCOUNTER 2023-03-18 13:30 | Outpatient (REF) | payer OTHER, SELFPAY ==
[2023-03-20 13:09] LABS: Absolute CD3 Count 952 cells/uL (840-3060); Absolute CD4 Count 126 cells/uL (490-1740); Absolute CD8 Count 814 cells/uL (180-1170); Absolute Lymphocytes 1078 cells/uL (850-3900); CD4 CD8 Ratio 0.16 (0.86-5.00); Percent CD3 Cells 88 % (57-85); Percent CD4 Cells 12 % (30-61); Percent CD8 Cells 75 % (12-42)
[2023-03-21 10:14] LABS: HIV RNA PCR Qn Copies 128 Copies/mL; HIV RNA PCR Qn Log Copies 2.11 Log cps/mL
[2023-04-09 08:44] LABS: Date Viral Load Collected NG; Value of Last HIV Viral Load NG copies/mL
== END 2023-03-18 13:31 | disposition home or self-care (01) ==
LOC: HO.LAB 13:30
PROVIDERS: PCP Internal Medicine; Visit Provider Internal Medicine
DX: B20 Human immunodeficiency virus [HIV] disease (principal)
CPT/HCPCS: 36415; 86359; 86360; 87536; 87900; 87901; 87906

== ENCOUNTER 2023-04-03 11:35 | Outpatient (AMB) | payer OTHER, SELFPAY ==
[2023-04-03 11:56] VITALS: BP 138/70; PULSE 68; O2SAT 98; BMI 22.1
--- NOTE | 2023-04-03 11:56 | MHC.OFFVIS ---
Intake Vital Signs 04/03/23 11:56 Height 5 ft 2 in Weight 121 lb BMI 22.1 BP 138/70 Pulse 68 Pulse Oximetry (%) 98 Intake Visit Reasons: HIV follow up possible labs and check x ray Fruit Farmer Required: Yes Fruit Farmer Name: Delano #[id number] Allergies No Known Allergies [No Known Allergies*] Allergy (Verified 04/03/23 11:59) HPI HIV follow up possible labs and check x ray HPI Details She is here for HIV care. She changed from Descovy/tivicay to Biktarvy on 09/26. She had CD4 count of 126 on 03/18 and was 134 on 11/16. Her viral load was 128 on 03/20. Her viral load was 149 on 11/16. She continues on atovaquone. She had skin cancer on nose. She had surgery and is doing wll and has had left scientologist lesion as well. [facility] Medical History Carpal tunnel syndrome, left MUSHTAQ II (cervical intraepithelial neoplasia II) Cough HIV (human immunodeficiency virus infection) Hx LEEP (loop electrosurgical excision procedure), cervix, Hypertriglyceridemia Insomnia Osteoporosis Skin cancer Tobacco abuse Well woman exam Surgical History History of orthopedic surgery History of surgery History of tubal ligation Hx of colonoscopy Family History Father Lung cancer Mother Colon cancer CVD (cardiovascular disease) Stroke Maternal Grandmother Uterine cancer Sister Breast cancer Social History Household Members: Spouse and Children Housing: Apartment Are you a primary home health care social worker to a significant other at home: No Do you presently have visiting nurse or other home services: No Alcohol intake: never Patient Tobacco Use Status: Former Tobacco user Quit Date: 02/2023 Tobacco use type: Cigarette Cigarettes Per Day: 3 Years Smoked: 20 stopped mid February 2023 e-Cigarette/Vaping Use: Never Used Second Hand Smoke Exposure: No service: No Current occupational status: disabled Cognitive needs: No Hearing needs: No Vision needs: Yes Female Reproductive History Menstrual Age of Menarche: 13 Review of Systems Const All systems reviewed & are unremarkable except as noted in HPI and below Physical Exam Vital Signs: Last Vital Signs Pulse 68 04/03/23 11:56 BP 138/70 04/03/23 11:56 Pulse Ox 98 04/03/23 11:56 BMI result Body Mass Index 22.1 Const General: cooperative Orientation/consciousness: patient oriented x3 HEENT Head: Yes normal to inspection Mouth: Normal oral and palatal mucosa present Eyes General: appearance normal, both eyes and all related structures Pupils: Equal, round and reactive pupils present Resp Effort & Inspection: normal respiratory effort Cardio Rate: regular rate Rhythm: regular rhythm GI Palpation (GI): Soft to palpation and nontender General: Yes no CVA tenderness Back/Spine/Pelvis Back: no CVA tenderness Skin Other: left scientologist lesion less than 1 cm nasal lesion improving Neuro General: patient oriented x3 Cranial nerves: Yes CN's II-XII intact bilaterally and Yes Equal, round and reactive pupils present Extrem General: Yes normal to inspection Psych Appearance: grossly normal Assessment & Plan Assessment & Plan (1) 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 She has skin cancer on nose doing well. Code(s): B20 - Human immunodeficiency virus [HIV] disease Plan: Continue Biktarvy. Continue atovaquone. Return in four months. Check CD4 count and viral load before. Labs in July. 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
== END 2023-04-03 13:11 | disposition home or self-care (01) ==
LOC: HO.HID 11:35
PROVIDERS: PCP Internal Medicine; Visit Provider Internal Medicine
DX: C44.321 Squamous cell carcinoma of skin of nose (principal); R87.610 Atypical squamous cells of undetermined significance on cytologic smear of cervix (ASC-US); B20 Human immunodeficiency virus [HIV] disease
CPT/HCPCS: 99213

== ENCOUNTER → 2023-04-03 11:35 | Outpatient (BNVA) | payer OTHER, SELFPAY | PROVIDERS: PCP Internal Medicine; Visit Provider Internal Medicine | DX: B20 Human immunodeficiency virus [HIV] disease (principal); C44.321 Squamous cell carcinoma of skin of nose; R87.610 Atypical squamous cells of undetermined significance on cytologic smear of cervix (ASC-US) | CPT/HCPCS: 99212 ==

== ENCOUNTER 2023-05-06 10:02 | Outpatient (REF) | payer OTHER, SELFPAY ==
--- NOTE | 2023-05-06 10:06 | ECG_ITS ---
Test Reason : THROMBOCYTCPENIA Blood Pressure : / mmHG Vent. Rate : 071 BPM Atrial Rate : 071 BPM P-R Int : 162 ms QRS Dur : 070 ms QT Int : 366 ms P-R-T Axes : 077 068 067 degrees QTc Int : 397 ms Normal sinus rhythm Normal ECG When compared with ECG of 07-JAN-2017 07:18, No significant change was found Referred By: Geovany Sevilla Electronically Signed By:PIPER LUJAN MD
[2023-05-09 19:43] LABS: HIV RNA PCR Qn Copies 39 Copies/mL; HIV RNA PCR Qn Log Copies 1.59 Log cps/mL
== END 2023-05-06 10:03 | disposition home or self-care (01) ==
LOC: HO.LAB 10:02
PROVIDERS: Internal Medicine; PCP Internal Medicine; Visit Provider Internal Medicine
DX: D69.6 Thrombocytopenia, unspecified (principal)
CPT/HCPCS: 36415; 87536; 87900; 87901; 93005

== ENCOUNTER → 2023-05-06 10:06 | Outpatient (BNV) | payer OTHER, SELFPAY | PROVIDERS: PCP Internal Medicine; Visit Provider Internal Medicine Cardiovascular Disease | DX: D69.6 Thrombocytopenia, unspecified (principal) | CPT/HCPCS: 93010 ==

== ENCOUNTER 2023-07-05 10:43 | Outpatient (AMB) | payer OTHER, SELFPAY ==
[2023-07-05 10:48] VITALS: BP 142/82; PULSE 90; O2SAT 98; BMI 20.8
--- NOTE | 2023-07-05 10:48 | A.OFFPC_ITS ---
Vital Signs 3 07/05/23 10:48 Height 5 ft 2 in Weight 114 lb BMI 20.8 BP 142/82 H Blood Pressure Location Lt brachial Position Sitting Pulse 90 Pulse Source Pulse Oximeter Pulse Oximetry (%) 98 Oxygen Delivery Method Room Air Intake Visit Reasons: Thrombocytopenia tobacco abuse HIV Allergies No Known Allergies [No Known Allergies*] Allergy (Verified 07/05/23 10:49) Medication List - Last Reconciled 07/05/23 by Geovany Sevilla MD alendronate 70 mg PO QWEEK mdxjwfvfd-isjhvbvh-aoroxfv ala 50-200-25 mg (Biktarvy) 1 tab PO DAILY 30 days citalopram 1 tab PO DAILY fluticasone propionate 50 mcg/actuation (Flonase Allergy Relief) 2 sprays intranasal DAILY varenicline (Chantix Starting Month Box) PO PER PKG DIR varenicline (Chantix Continuing Month Box) 1 mg PO BID zolpidem 10 mg PO BEDTIME PRN 30 days Tobacco use date assessed: 03/22/23 Fall risk assessment: No Falls in past year Last assessed Fall Risk: 07/05/23 Dental Screening Dental Screen Date: 07/05/23 Did you have a dental visit in the last 12 months?: Yes Did you have a dental problem in the last 6 months where you did not have access to dental care?: No Was dental information given to patient?: Patient has dentist HPI Thrombocytopenia tobacco abuse HIV 2 HPI0 Details 67-year-old female smoker with a history of thrombocytopenia hypercholesterolemia HIV coming in for follow-up. Last seen in February 2023. Patient is up-to-date with colonoscopy mammogram due May bone density due July. Review of the notes because of the skin cancer was referred to the surgeon nasal supratip lesion biopsy-proven squamous cell carcinoma patient was advised to stop smoking asking for preoperative evaluation. 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 surgery done June 06, 2023 Dr. Luther will have another procedure 07/18/2023 patient is asking for a supplement because she is getting thinner and discussed about and sure. [facility] Medical History Carpal tunnel syndrome, left MUSHTAQ II (cervical intraepithelial neoplasia II) Cough HIV (human immunodeficiency virus infection) Hx LEEP (loop electrosurgical excision procedure), cervix, Hypertriglyceridemia Insomnia Osteoporosis Skin cancer Tobacco abuse Well woman exam Surgical History History of orthopedic surgery History of surgery History of tubal ligation Hx of colonoscopy Family History (Updated 07/05/23 @ 10:50 by Viki Camara CMA) Father Lung cancer Mother Colon cancer CVD (cardiovascular disease) Stroke Maternal Grandmother Uterine cancer Sister Breast cancer Social History Household Members: Spouse and Children Housing: Apartment Are you a primary hearing healthcare practitioner to a significant other at home: No Do you presently have visiting nurse or other home services: No Alcohol intake: never Patient Tobacco Use Status: Former Tobacco user Quit Date: 02/2023 Tobacco use type: Cigarette Cigarettes Per Day: 3 Years Smoked: 20 stopped mid February 2023 Packs per year/per ci.00 e-Cigarette/Vaping Use: Never Used Second Hand Smoke Exposure: No service: No Current occupational status: disabled Cognitive needs: No Hearing needs: No Vision needs: Yes Female Reproductive History Menstrual Age of Menarche: 13 Questionnaire PHQ-9 Over the last 2 weeks, how often have you been bothered by any of the following problems? 1. Little interest or pleasure in doing things: not at all 2. Feeling down, depressed, or hopeless: not at all 3. Trouble falling or staying asleep, or sleeping too much: not at all 4. Feeling tired or having little energy: not at all 5. Poor appetite or overeating: not at all 6. Feeling bad about yourself - or that you are a failure or have let yourself or your family down: not at all 7. Trouble concentrating on things, such as reading the newspaper or watching television: not at all 8. Moving or speaking so slowly that other people could have noticed. Or the opposite - being so fidgety or restless that you have been moving around a lot more than usual: not at all 9. Thoughts that you would be better off or of hurting yourself in some way: not at all Total score: 0 Depression Screening Interpretation: Negative Depression Screening Done: Yes Source: Developed by Tess ArriagaW. Cliff, Moises Winslow and colleagues, with an educational sarah from [employer]. Thrive Questionnaire Date Thrive assessed: 12/18/22 AUDIT C Alcohol Use Questionnaire (AUDIT-C) 1. How often do you have a drink containing alcohol?: Never 3. How often do you have six or more drinks on one occasion?: Never Total Score: 0 Score Reviewed/Action Taken: Yes ERAN-7 AMB Questionnaire ERAN-7 Date ERAN - 7 assessed: 12/18/22 Source: Developed by Drs. Amilcar Lr, Moises Graham and colleagues, with an educational sarah from [employer]. Physical exam (Primary Care) Vital Signs: Last Vital Signs Pulse 90 07/05/23 10:48 BP 142/82 H 07/05/23 10:48 Pulse Ox 98 07/05/23 10:48 Oxygen Delivery Method Room Air 07/05/23 10:48 BMI result Body Mass Index 20.8 Tobacco/Smoking Status: Tobacco use Status Tobacco use date assessed 03/22/23 07/05/23 10:50 Patient Tobacco Use Status Former Tobacco user 07/05/23 10:50 Tobacco use type Cigarette 07/05/23 10:50 e-Cigarette/Vaping Use Never Used 07/05/23 10:50 PHQ-9: PHQ-9 Score PHQ-9: Total score 0 07/05/23 10:50 Depression Screening Interpretation: Negative Thrive Assessment: Date of Thrive Assessment Date Thrive assessed 12/18/22 07/05/23 10:50 Const General: alert; No acute distress [facility] Head images: 2 1. Incisional scar on her forehead and nose no redness. 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 Luther Code(s): C44.321 - Squamous cell carcinoma of skin of nose Plan: Patient had a surgery already and there is a plan for a 2nd operation later this month (2) PAULA II (vulvar intraepithelial neoplasia II): Comment: 04/2023 Code(s): N90.1 - Moderate vulvar dysplasia Plan: Patient has been follow-up with OB gynecology and scheduled/planned vaginal surgery (3) Tobacco abuse: Code(s): Z72.0 - Tobacco use Plan: Patient strongly advised to stop smoking! (4) HIV (human immunodeficiency virus infection): Comment: She has been doing well with Biktarvy. She has skin cancer on nose doing well. Code(s): B20 - Human immunodeficiency virus [HIV] disease Plan: Continue to follow-up with Infectious Disease (5) Underweight: Code(s): R63.6 - Underweight Plan: With loss of weight patient is prescribed Ensure. 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
== END 2023-07-05 11:40 | disposition home or self-care (01) ==
PROVIDERS: PCP Internal Medicine; Visit Provider Internal Medicine
DX: C44.321 Squamous cell carcinoma of skin of nose (principal); N90.1 Moderate vulvar dysplasia; Z72.0 Tobacco use; B20 Human immunodeficiency virus [HIV] disease; R63.6 Underweight
CPT/HCPCS: 99214

== ENCOUNTER 2023-07-08 10:19 | Outpatient (AMB) | payer OTHER, SELFPAY ==
[2023-07-08 10:37] VITALS: BP 136/80; BMI 20.6
--- NOTE | 2023-07-08 10:37 | A.OFFVIS_ITS ---
Intake Vital Signs 07/08/23 10:37 Height 5 ft 2 in Weight 112 lb 6.972 oz BMI 20.6 BP 136/80 Intake Visit Reasons: colpo results Ice Platform Supervisor Required: Yes Ice Platform Supervisor Language: Hydro Pneumatic Tester Name: Chloe ZURITA Information Interpreted: non-clinical & clinical Accompanied by: Self / Same As Patient Allergies No Known Allergies [No Known Allergies*] Allergy (Verified 07/08/23 10:44) Post menopausal: Yes HPI HPI Comments History of Present Illness Details Presenting post colpo for follow-up. The patient is doing well with no complaints. The pathology showed the following: A. Endocervix, curettage: Squamous and endocervical glandular epithelium with inflammation and reactive changes; negative for dysplasia. B. Cervix, 1:00, biopsy: Squamous mucosa with reactive changes; no endocervical glandular component present. C. Cervix, 6:00, biopsy: Squamous mucosa with reactive changes; negative for dysplasia; no endocervical glandular component present. D. Cervix, 7:00, biopsy: Fragment of predominantly denuded cervical stroma with rare reactive squamous cells without dysplasia; no endocervical glandular component present. E. Cervix, 11:00, biopsy: Squamous mucosa with inflammation and reactive changes and rare detached endocervical glandular epithelium; negative for dysplasia PFSH Medical History Cough Well woman exam Skin cancer Hx LEEP (loop electrosurgical excision procedure), cervix, Tobacco abuse Osteoporosis MUSHTAQ II (cervical intraepithelial neoplasia II) Hypertriglyceridemia Insomnia Carpal tunnel syndrome, left HIV (human immunodeficiency virus infection) Surgical History Hx of colonoscopy History of orthopedic surgery History of surgery History of tubal ligation Family History Father Lung cancer Mother Colon cancer CVD (cardiovascular disease) Stroke Maternal Grandmother Uterine cancer Sister Breast cancer Social History Household Members: Spouse and Children Housing: Apartment Are you a primary medicare contact specialist to a significant other at home: No Do you presently have visiting nurse or other home services: No Alcohol intake: never Patient Tobacco Use Status: Former Tobacco user Quit Date: 02/2023 Tobacco use type: Cigarette Cigarettes Per Day: 3 Years Smoked: 20 stopped mid February 2023 e-Cigarette/Vaping Use: Never Used Second Hand Smoke Exposure: No service: No Current occupational status: disabled Cognitive needs: No Hearing needs: No Vision needs: Yes Female Reproductive History Menstrual Age of Menarche: 13 Review of Systems Const All systems reviewed & are unremarkable except as noted in HPI and below Reports as per HPI and Reports no additional complaints GI Reports no additional complaints Reports no additional complaints Physical Exam Vital Signs: Last Vital Signs BP 136/80 07/08/23 10:37 BMI result Body Mass Index 20.6 Assessment & Plan Assessment & Plan (1) ASCUS of cervix with negative high risk HPV: Code(s): R87.610 - Atypical squamous cells of undetermined significance on cytologic smear of cervix (ASC-US) Plan: Discussed with the patient the pathology results of the colposcopy biopsies & endocervical curettage ( negative). Discussed with the patient the sensitivity specificity, positive and negative predictive value in detecting cervical cancer in addition discussed the regression, persistence and progression rates. Recommended co-testing in 12 months, if cytology and or HPV are abnormal will proceed was colposcopy biopsy and endocervical curettage. Instructions given to the patient to schedule a co test appointment in 1 year. All questions answered the patient verbalized understanding. (2) PAULA III (vulvar intraepithelial neoplasia III): Code(s): D07.1 - Carcinoma in situ of vulva Plan: The patient has been followed up with [facility] and is being treated with topical treatment and has a follow-up appointment scheduled soon. Coding Level of Care Code Est Pt Level 3 (53293) Diagnoses ASCUS of cervix with negative high risk HPV R87.610 PAULA III (vulvar intraepithelial neoplasia III) D07.1
== END 2023-07-08 11:20 | disposition home or self-care (01) ==
LOC: HO.HWS 10:19
PROVIDERS: PCP Internal Medicine; Visit Provider Obstetrics & Gynecology
DX: R87.610 Atypical squamous cells of undetermined significance on cytologic smear of cervix (ASC-US) (principal); D07.1 Carcinoma in situ of vulva
CPT/HCPCS: 99213

== ENCOUNTER → 2023-07-08 10:19 | Outpatient (BNVA) | payer MEDICARE, MEDICAID, SELFPAY | PROVIDERS: PCP Internal Medicine; Visit Provider Obstetrics & Gynecology | DX: R87.610 Atypical squamous cells of undetermined significance on cytologic smear of cervix (ASC-US) (principal); D07.1 Carcinoma in situ of vulva | CPT/HCPCS: 99212 ==

== ENCOUNTER 2023-08-24 09:54 | Outpatient (REF) | payer OTHER, SELFPAY ==
[2023-08-24 10:21] LABS: MANUAL DIFF FLAG NO
[2023-08-24 10:55] LABS: Basophils Absolute Auto 0.1 X10*3/uL (0.0-0.2); Eosinophils Absolute Auto 0.2 X10*3/uL (0.0-0.4); Hematocrit 39.6 % (37.0-47.0); Hemoglobin 12.4 g/dl (12.0-16.0); Imm Gran Abs Auto 0.01 X10*3/uL (0.00-0.03); Imm Gran Pct Auto 0.2 % (0.0-0.4); Lymphocytes Absolute Auto 1.2 X10*3/uL (1.2-4.9); Lymphocytes Percent Auto 23.7 % (20-40); Mean Corpuscular HGB Conc 31.3 g/dl (31.0-35.0); Mean Corpuscular Hemoglobin 26.7 pg (27.0-33.0); Mean Corpuscular Volume 85.3 fL (80.0-98.0); Monocytes Absolute Auto 0.5 X10*3/uL (0.1-1.2); Monocytes Percent Auto 10.5 % (2-11); Neutrophils Percent Auto 61.6 % (45-73); Platelet Count 87 X10*3/uL (160-400); Red Blood Count 4.64 X10*6/uL (4.20-5.50); Red Cell Distribution Width 14.1 % (11.0-16.0); White Blood Count 4.9 X10*3/uL (4.8-10.8)
[2023-08-24 11:11] LABS: Alanine Aminotransferase 10 U/L (0-31); Albumin Level 4.1 g/dL (3.5-5.0); Alkaline Phosphatase 95 U/L (39-117); Anion Gap 10 (12-20); Aspartate Amino Transferase 19 U/L (5-31); Bilirubin Total 0.4 mg/dL (0.0-1.0); Blood Urea Nitrogen 13 mg/dL (9-16); Calcium 9.9 mg/dL (8.4-10.2); Carbon Dioxide 27 mmol/L (22-29); Chloride 109 mmol/L (96-108); Estimated Glomerular Filt Rate > 60; Glucose Random 97 mg/dL (60-115); Lactate Dehydrogenase 164 U/L (122-220); Potassium 4.3 mmol/L (3.3-5.1); Sodium 142 mmol/L (135-145); Total Protein 8.1 g/dL (6.5-8.0)
== END 2023-08-24 09:55 | disposition home or self-care (01) ==
LOC: HO.LAB 09:54
PROVIDERS: Internal Medicine Medical Oncology; Visit Provider Internal Medicine
DX: D69.6 Thrombocytopenia, unspecified (principal)
CPT/HCPCS: 36415; 80053; 83615; 85025

== ENCOUNTER 2023-08-30 08:23 | Outpatient (REF) | payer MEDICARE, MEDICAID, SELFPAY ==
--- NOTE | ~2023-08-30 | MM_ITS ---
EXAMINATION: BONE DENSITOMETRY CLINICAL INDICATION: Osteoporosis without current pathological fracture. COMPARISON: Previous BD dated 07/25/2021 and baseline BD dated 10/07/2012. TECHNIQUE: Using a LEHR DXA System (software version: 13.1) manufactured by [employer], dual-energy x-ray absorptiometry was performed of the lumbar spine and left hip. The images are of good technical quality. Summary results are attached. FINDINGS: LEFT FEMUR, NECK: Current: BMD 0.651 g/cm2, Z-score -1.0, T-score -2.8, osteoporosis. Prior: BMD 0.653 g/cm2. Baseline: BMD 0.716 g/cm2. LEFT FEMUR, TOTAL: Current: BMD 0.707 g/cm2, Z-score -0.8, T-score -2.4, osteopenia, 3.7% decrease from previous, 15.0% decrease from baseline (<5% change is not significant). Prior: BMD 0.734 g/cm2. Baseline: BMD 0.832 g/cm2. AP SPINE L1-L4: Current: BMD 0.815 g/cm2, Z-score -1.0, T-score -3.0, osteoporosis, 9.6% decrease from previous, 18.5% decrease from baseline (<5% change is not significant). Prior: BMD 0.902 g/cm2. Baseline: BMD 1.000 g/cm2. IDENTIFIED RISK FACTORS: Menopause. HISTORY OF FRACTURE: None listed. MEDICATIONS: Multivitamin, vitamin D. MM/XR DEXA axial skeleton IMPRESSION: 1. DIAGNOSIS: Osteoporosis based on the lowest T-score value of -3.0 in the lumbar spine applying World Health Organization criteria. 2. 10-YEAR FRACTURE RISK PREDICTION, FRAX: According to the guidelines, FRAX calculation should only be performed on patients in the osteopenia bone density category. Therefore, FRAX was not performed on this patient. 3. Treatment Recommendations: NOF guidelines recommend consideration for treatment in postmenopausal women and men age 50 and older presenting with the following: -A hip or vertebral (clinical or morphometric) fracture. -T-score less than or equal to -2.5 at the femoral neck or spine after appropriate evaluation to exclude secondary causes. -Low bone mass at the hip or spine and a 10-year fracture probability by FRAX of greater than or equal to 3% for hip fracture or greater than or equal to 20% for major osteoporotic fracture based on the [place] adapted WHO algorithm. 4. Other Recommendations: All treatment decisions require clinical judgment and consideration of individual patient factors, including patient preferences, comorbidities, previous drug use, risk factors not captured in the FRAX model (e.g. frailty, falls, vitamin D deficiency, increased bone turnover, interval significant decline in bone density) and possible under or overestimation of fracture risk by FRAX. Additional medical evaluation for secondary cause of low bone mineral density may be appropriate. FUTURE SCAN RECOMMENDATION: People with diagnosed cases of osteoporosis or at high risk for fracture should have regular bone mineral density tests. For patients eligible for Medicare, routine testing is allowed once every 2 years. The testing frequency can be increased to one year for patients who have rapidly progressing disease, those who are receiving or discontinuing medical therapy to restore bone mass, or have additional risk factors.
[2023-09-02 07:29] LABS: Absolute CD3 Count 900 cells/uL (840-3060); Absolute CD4 Count 93 cells/uL (490-1740); Absolute CD8 Count 790 cells/uL (180-1170); Absolute Lymphocytes 1070 cells/uL (850-3900); CD4 CD8 Ratio 0.12 (0.86-5.00); Percent CD3 Cells 84 % (57-85); Percent CD4 Cells 9 % (30-61); Percent CD8 Cells 74 % (12-42)
[2023-09-03 18:35] LABS: HIV RNA PCR Qn Copies 747 Copies/mL; HIV RNA PCR Qn Log Copies 2.87 Log cps/mL
[2023-09-18 21:58] LABS: HIV Genotype DETECTED
== END 2023-08-30 08:24 | disposition home or self-care (01) ==
LOC: HO.MAMMO 08:23
PROVIDERS: PCP Internal Medicine; Referring Provider Internal Medicine; Visit Provider Obstetrics & Gynecology
DX: M81.0 Age-related osteoporosis without current pathological fracture (principal); B20 Human immunodeficiency virus [HIV] disease; Z12.31 Encounter for screening mammogram for malignant neoplasm of breast
CPT/HCPCS: 36415; 77063; 77067; 77080; 86359; 86360; 87536; 87900; 87901

== ENCOUNTER → 2023-08-30 08:45 | Outpatient (BNV) | payer MEDICARE, SELFPAY | PROVIDERS: PCP Internal Medicine; Referring Provider Internal Medicine; Visit Provider Radiology Diagnostic Radiology | DX: Z12.31 Encounter for screening mammogram for malignant neoplasm of breast (principal) | CPT/HCPCS: 77063; 77067 ==

== ENCOUNTER 2023-09-09 11:40 | Outpatient (AMB) | payer MEDICARE, SELFPAY ==
--- NOTE | 2023-09-09 11:40 | MHC.OFFVIS ---
Intake Vital Signs 09/09/23 11:55 Height 5 ft 2 in Weight 118 lb BMI 21.6 Pulse 99 Pulse Source Pulse Oximeter Temp 98.2 F Temp Source Oral Pulse Oximetry (%) 98 Intake Visit Reasons: 4 month HIV follow/labs Cultural Centre Manager Required: Yes Cultural Centre Manager Name: Fish Gonzalez CMA Allergies No Known Allergies [No Known Allergies*] Allergy (Unverified 09/12/23 13:19) HPI 4 month HIV follow/labs HPI Details She has CD4 count of 93 on 08/30 and viral load 747. She has not picked up Biktarvy since 07/20 at pharmacy. She says she is taking daily. She has no complaints [facility] Medical History Cough Well woman exam Skin cancer Hx LEEP (loop electrosurgical excision procedure), cervix, Tobacco abuse Osteoporosis MUSHTAQ II (cervical intraepithelial neoplasia II) Hypertriglyceridemia Insomnia Carpal tunnel syndrome, left HIV (human immunodeficiency virus infection) Surgical History Hx of colonoscopy History of orthopedic surgery History of surgery History of tubal ligation Family History Father Lung cancer Mother Colon cancer CVD (cardiovascular disease) Stroke Maternal Grandmother Uterine cancer Sister Breast cancer Social History Household Members: Spouse and Children Housing: Apartment Are you a primary health care / medical job titles to a significant other at home: No Do you presently have visiting nurse or other home services: No Alcohol intake: never Comment: medicated in pacu Patient Tobacco Use Status: Former Tobacco user Quit Date: 02/2023 Tobacco use type: Cigarette Cigarettes Per Day: 3 Years Smoked: 20 stopped mid February 2023 e-Cigarette/Vaping Use: Never Used Second Hand Smoke Exposure: No service: No Current occupational status: disabled Cognitive needs: No Hearing needs: No Vision needs: Yes Female Reproductive History Menstrual Age of Menarche: 13 Review of Systems Const All systems reviewed & are unremarkable except as noted in HPI and below Physical Exam Vital Signs: Last Vital Signs Temp 98.2 F 09/09/23 11:55 Pulse 99 12/18/23 11:55 Pulse Ox 98 09/09/23 11:55 BMI result Body Mass Index 21.6 Const General: cooperative Orientation/consciousness: patient oriented x3 HEENT Other: extensive scarring on face from malignancy surgery Mouth: Normal oral and palatal mucosa present Eyes General: appearance normal, both eyes and all related structures Pupils: Equal, round and reactive pupils present Resp Effort & Inspection: normal respiratory effort Cardio Rate: regular rate Rhythm: regular rhythm GI Palpation (GI): Soft to palpation and nontender General: Yes no CVA tenderness Back/Spine/Pelvis Back: no CVA tenderness Skin General skin exam: no rashes or lesions noted Neuro General: patient oriented x3 Cranial nerves: Yes CN's II-XII intact bilaterally and Yes Equal, round and reactive pupils present Extrem General: Yes normal to inspection Psych Appearance: grossly normal Assessment & Plan Assessment & Plan (1) HIV (human immunodeficiency virus infection): Comment: She has not apparently been taking Biktarvy. Code(s): B20 - Human immunodeficiency virus [HIV] disease Plan: Recheck cell count and CD4 count soon See in three months. Adherence stressed as her face wont heal and she will be more prone to clotting and malignancy without perfect adherence. Orders: Orders Lymphocyte Count, Total 3 Months B20 - Human immunodeficiency virus [HIV] disease HIV-1 RNA QN PCR Expanded 3 Months B20 - Human immunodeficiency virus [HIV] disease Coding Level of Care Code Est Pt Level 4 (66677) Diagnoses HIV (human immunodeficiency virus infection) B20
[2023-09-09 11:55] VITALS: PULSE 99; TEMP 36.8; O2SAT 98; BMI 21.6
== END 2023-09-09 13:47 | disposition home or self-care (01) ==
LOC: HO.HID 11:40
PROVIDERS: PCP Internal Medicine; Visit Provider Internal Medicine
DX: B20 Human immunodeficiency virus [HIV] disease (principal)
CPT/HCPCS: 99214

== ENCOUNTER → 2023-09-09 11:40 | Outpatient (BNVA) | payer MEDICARE, SELFPAY | PROVIDERS: PCP Internal Medicine; Visit Provider Internal Medicine | DX: B20 Human immunodeficiency virus [HIV] disease (principal) | CPT/HCPCS: 99212 ==

== ENCOUNTER 2023-09-12 13:18 | Outpatient (AMB) | payer OTHER, SELFPAY ==
--- NOTE | 2023-09-12 13:18 | MHC.OFFVIS ---
Intake Intake Visit Reasons: Dexa results Mica Splitter Required: Yes Mica Splitter Language: Ion Implant Machine Operator Name: Chloe Cox RMA Information Interpreted: non-clinical & clinical Allergies No Known Allergies [No Known Allergies*] Allergy (Unverified 09/12/23 13:19) HPI HPI Comments History of Present Illness Details The patient scheduled tele health visit for DEXA scan follow-up. The results showed the following: LEFT FEMUR, NECK: Current: BMD 0.651 g/cm2, Z-score -1.0, T-score -2.8, osteoporosis. Prior: BMD 0.653 g/cm2. Baseline: BMD 0.716 g/cm2. LEFT FEMUR, TOTAL: Current: BMD 0.707 g/cm2, Z-score -0.8, T-score -2.4, osteopenia, 3.7% decrease from previous, 15.0% decrease from baseline (<5% change is not significant). Prior: BMD 0.734 g/cm2. Baseline: BMD 0.832 g/cm2. AP SPINE L1-L4: Current: BMD 0.815 g/cm2, Z-score -1.0, T-score -3.0, osteoporosis, 9.6% decrease from previous, 18.5% decrease from baseline (<5% change is not significant). Prior: BMD 0.902 g/cm2. Baseline: BMD 1.000 g/cm2. [facility] Medical History Cough Well woman exam Skin cancer Hx LEEP (loop electrosurgical excision procedure), cervix, Tobacco abuse Osteoporosis MUSHTAQ II (cervical intraepithelial neoplasia II) Hypertriglyceridemia Insomnia Carpal tunnel syndrome, left HIV (human immunodeficiency virus infection) Surgical History Hx of colonoscopy History of orthopedic surgery History of surgery History of tubal ligation Family History Father Lung cancer Mother Colon cancer CVD (cardiovascular disease) Stroke Maternal Grandmother Uterine cancer Sister Breast cancer Social History Household Members: Spouse and Children Housing: Apartment Are you a primary care support representative to a significant other at home: No Do you presently have visiting nurse or other home services: No Alcohol intake: never Comment: medicated in pacu Patient Tobacco Use Status: Former Tobacco user Quit Date: 02/2023 Tobacco use type: Cigarette Cigarettes Per Day: 3 Years Smoked: 20 stopped mid February 2023 e-Cigarette/Vaping Use: Never Used Second Hand Smoke Exposure: No service: No Current occupational status: disabled Cognitive needs: No Hearing needs: No Vision needs: Yes Female Reproductive History Menstrual Age of Menarche: 13 Review of Systems Const All systems reviewed & are unremarkable except as noted in HPI and below Reports as per HPI and Reports no additional complaints GI Reports no additional complaints Reports no additional complaints Assessment & Plan Assessment & Plan (1) Osteoporosis: Comment: Decrease in bone density over last 2 years on alendronate Code(s): M81.0 - Age-related osteoporosis without current pathological fracture Plan: Discussed with the patient the results of bone density showing a decrease order last 2 years in spite of being on alendronate, recommended referral to rheumatology for further management. All questions answered, the patient verbalized understanding. Instructed the patient to call our office back in case a referral appointment is not scheduled, missed or canceled so that we will assist on rescheduling another appointment, the patient verbalized understanding agreed with the plan. I spent a total of 20 minutes reviewing the chart, talking to the patient via phone and documenting in the medical record. Orders: Referrals Rheumatology Referral M81.0 - Age-related osteoporosis without current pathological fracture Telehealth Telehealth Location of provider rendering services: practice address Location of patient: address on file Patient Identification confirmed using: Name, : Yes Telehealth method: voice only Patient verbally consented to treatment: Yes Patient verbally consented to billing insurance company: Yes Patient informed of any privacy concerns related to visit: Yes Coding Level of Care Code Tele Est Pt Level 1 (52286) Diagnoses Osteoporosis M81.0
== END 2023-09-12 14:26 | disposition home or self-care (01) ==
LOC: HO.HWS 13:18
PROVIDERS: Visit Provider Obstetrics & Gynecology
DX: M81.0 Age-related osteoporosis without current pathological fracture (principal)
CPT/HCPCS: 99211

== ENCOUNTER → 2023-09-12 13:18 | Outpatient (BNVA) | payer MEDICARE, MEDICAID, SELFPAY | PROVIDERS: Visit Provider Obstetrics & Gynecology ==

== ENCOUNTER 2023-11-09 08:33 | Outpatient (REF) | payer OTHER, SELFPAY ==
[2023-11-09 09:07] LABS: Lymphocyte Count, Total 1.1 X10*3/uL (1.2-4.9)
[2023-11-13 19:43] LABS: HIV RNA PCR Qn Copies 40 copies/mL (NOT DETECTED)
== END 2023-11-09 08:34 | disposition home or self-care (01) ==
LOC: HO.LAB 08:33
PROVIDERS: PCP Internal Medicine; Visit Provider Internal Medicine
DX: B20 Human immunodeficiency virus [HIV] disease (principal)
CPT/HCPCS: 36415; 85048; 87536

== ENCOUNTER 2023-11-18 11:12 | Outpatient (AMB) | payer OTHER, SELFPAY ==
--- NOTE | 2023-11-18 11:16 | MHC.OFFVIS ---
Intake Vital Signs 11/18/23 11:20 Height 5 ft 2 in Weight 119 lb BMI 21.8 Pulse 83 Pulse Source Pulse Oximeter Pulse Oximetry (%) 98 Intake Visit Reasons: hiv follow up meds refill Survey Research Center Director Required: Yes Survey Research Center Director Name: Fish Gonzalez CMA Allergies No Known Allergies [No Known Allergies*] Allergy (Verified 11/18/23 11:20) HPI hiv follow up meds refill HPI Details She is doing well. She has CD4 count of 93 and viral load of 40 on 08/30/2023. She has no complaints. [facility] Medical History Cough Well woman exam Skin cancer Hx LEEP (loop electrosurgical excision procedure), cervix, Tobacco abuse Osteoporosis MUSHTAQ II (cervical intraepithelial neoplasia II) Hypertriglyceridemia Insomnia Carpal tunnel syndrome, left HIV (human immunodeficiency virus infection) Surgical History Hx of colonoscopy History of orthopedic surgery History of surgery History of tubal ligation Family History Father Lung cancer Mother Colon cancer CVD (cardiovascular disease) Stroke Maternal Grandmother Uterine cancer Sister Breast cancer Social History Household Members: Spouse and Children Housing: Apartment Are you a primary daycare provider to a significant other at home: No Do you presently have visiting nurse or other home services: No Alcohol intake: never Comment: medicated in pacu Patient Tobacco Use Status: Former Tobacco user Quit Date: 02/2023 Tobacco use type: Cigarette Cigarettes Per Day: 3 Years Smoked: 20 stopped mid February 2023 e-Cigarette/Vaping Use: Never Used Second Hand Smoke Exposure: No service: No Current occupational status: disabled Cognitive needs: No Hearing needs: No Vision needs: Yes Female Reproductive History Menstrual Age of Menarche: 13 Review of Systems Const All systems reviewed & are unremarkable except as noted in HPI and below Physical Exam Vital Signs: Last Vital Signs Pulse 83 11/18/23 11:20 Pulse Ox 98 11/18/23 11:20 BMI result Body Mass Index 21.8 Const General: cooperative HEENT Head: Yes normal to inspection Face and sinus: Yes normal facial exam Mouth: Normal oral and palatal mucosa present Teeth and gingiva: dentition normal Eyes General: appearance normal, both eyes and all related structures Pupils: Equal, round and reactive pupils present Resp Effort & Inspection: normal respiratory effort Cardio Rate: regular rate Rhythm: regular rhythm GI Palpation (GI): Soft to palpation and nontender General: Yes no CVA tenderness Back/Spine/Pelvis Back: no CVA tenderness Skin General skin exam: no rashes or lesions noted Neuro General: moves all extremities Cranial nerves: Yes Equal, round and reactive pupils present Extrem General: Yes normal to inspection Psych Appearance: grossly normal Assessment & Plan Assessment & Plan (1) HIV (human immunodeficiency virus infection): Comment: She has much improved viral load but still has low CD4 count. Code(s): B20 - Human immunodeficiency virus [HIV] disease Plan: Would continue Biktarvy Check CD4 count and viral load before appointment and see in six months. Orders: Orders HIV-1 RNA QN PCR Expanded 6 Months B20 - Human immunodeficiency virus [HIV] disease Lymphocyte Subset Panel 3 6 Months B20 - Human immunodeficiency virus [HIV] disease Medications: Refilled zmyhjtdcs-zmingqcm-mmuqqto ala 50-200-25 mg (Biktarvy) 1 tab PO DAILY 30 days 30 tabs 5RF Coding Level of Care Code Est Pt Level 3 (44830) Diagnoses HIV (human immunodeficiency virus infection) B20
[2023-11-18 11:20] VITALS: PULSE 83; O2SAT 98; BMI 21.8
== END 2023-11-18 14:09 | disposition home or self-care (01) ==
PROVIDERS: Visit Provider Internal Medicine
DX: B20 Human immunodeficiency virus [HIV] disease (principal)
CPT/HCPCS: 99213

== ENCOUNTER → 2023-11-18 11:12 | Outpatient (BNVA) | payer OTHER, SELFPAY | PROVIDERS: Visit Provider Internal Medicine | DX: B20 Human immunodeficiency virus [HIV] disease (principal) | CPT/HCPCS: 99212 ==

== ENCOUNTER 2024-04-02 10:56 | Outpatient (AMB) | payer OTHER, SELFPAY ==
--- OUTSIDE RECORDS SUMMARY | 2024-04-02 10:58 | XMS_ITS | Continuity of Care Document ---
Author Organization [facility] Richard sandy Address [address] [place] [address] [address] [place] [address]- Care Team Providers Care Statistical Analyst Name Role Phone Geovany Sevilla MD Primary Care Physician Encounter [facility] [id number] Date(s): 03/22/23 - 03/29/23 [facility] [address] [place] [address]- Attending Physician: Valentin Luther MD Referring Physician: Inder Neri MD Allergies, Adverse Reactions, Alerts No Known Medication Allergies Medications alendronate 70 mg oral tablet TAKE 1 TABLET BY MOUTH ONCE WEEKLY Start Date: 03/22/23 Status: Ordered Biktarvy oral tablet TAKE 1 TABLET BY MOUTH EVERY DAY Start Date: 03/22/23 Status: Ordered fluticasone 50 mcg/inh nasal spray SPRAY 2 SPRAYS INTO EACH NOSTRIL DAILY Start Date: 03/22/23 Status: Ordered varenicline 1mg tablet 1 tablet = 1 mg, By Mouth, 2 times a day, # 56 tablet, 0 Refills, Maintenance, 03/22/23 13:33:00 EDT, Tablet, Partial fill upon patient request if the prescription is for a schedule II opioid drug. Start Date: 03/22/23 Status: Ordered zolpidem 10 mg oral tablet TAKE 1 TABLET BY MOUTH AT BEDTIME NEEDED INSOMNIA Start Date: 03/22/23 Status: Ordered Problem List Condition Confirmation Course Effective Dates Status H ealth Status Informant MUSHTAQ II (cervical intraepithelial neoplasia II) Confirmed Active Insomnia Confirmed Active Thrombocytopenia Confirmed Active Tobacco abuse Confirmed Active PAULA II (vulvar intraepithelial neoplasia II) Confirmed Active Vital Signs Most recent to oldest [Reference Range]: 1 Height 153.9 cm (03/22/23 1:32 PM) Weight 53.18 kg (03/22/23 1:32 PM) Body Mass Index [18.5-24.99 kg/m2] 22.45 kg/m2 (03/22/23 1:32 PM) Social History Social History Type Response Smoking Status 5-9 cigarettes (betw een 1/4 to 1/2 pack)/day in last 30 days entered on: 05/14/22 Sex Patient Care team information Care Team Personnel Name: Geovany Sevilla MD Position: Reference Physician Member Role: PCP Address: Address: [address] [place] [address]- Care Team Related Persons Name: EFFIE ALBRECHT Name: THAD ROSE Address: home [address] [place] [id number]
--- OUTSIDE RECORDS SUMMARY | 2024-04-02 10:58 | XMS_ITS | Continuity of Care Document ---
Author Organization [facility] Richard sandy Address [address] [place] [address] [address] [place] [address]- Care Team Providers Care Business Process Manager Name Role Phone Po Geovany PITTMAN Primary Care Physician [phone] [place] [facility] [place](s): 06/13/23 - 06/20/23 [facility] [address] [place] [address]- Attending Physician: Ifeoma Recinos Allergies, Adverse Reactions, Alerts No Known Allergies Medications alendronate 70 mg oral tablet 1 tablet = 70 mg, By Mouth, Every 7 days, TAKE 1 TABLET BY MOUTH ONCE WEEKLY. TAKES ON Start Date: 03/22/23 Status: Ordered Biktarvy oral tablet 1 tablet, By Mouth, Daily before lunch, TAKE 1 TABLET BY MOUTH EVERY DAY Start Date: 03/22/23 Status: Ordered fluticasone 50 mcg/inh nasal spray Nares, Both, Daily, SPRAY 2 SPRAYS INTO EACH NOSTRIL DAILY Start Date: 03/22/23 Status: Ordered ibuprofen 600 mg oral tablet 600 mg, By Mouth, Every 6 hours, PRN, for 14 days, not to exceed 3200 mg/day with food or milk, # 50 tablet, Refills 0, Tot. Refills 0, Acute 06/21/23 7:58:00 EDT, Pain , Moderate, 06/07/23 7:58:00 EDT, [facility] Start Date: 06/07/23 Stop Date: 06/21/23 Status: Ordered imiquimod 5% topical cream See Instructions, Apply every other day, topically. Apply in a thin film to the affected skin of vulva and rub in gently and completely before betime and leave on for 6 to 10 hrs. In the morning washskin gently. Do not start medication until directe... Start Date: 06/03/23 Stop Date: 10/03/23 Status: Ordered Saline Mist 0.65% nasal spray 2 sprays, Nares, Both, 4 times a day, in each nostril, # 1 each, 0 Refills, Maintenance, 06/07/23 10:46:00 EDT, [facility]/pharmacy #[id number], Partial fill upon patient request if the prescription is for a schedule II opioid drug., 2 sprays Nares, Both 4 times a... Start Date: 06/07/23 Status: Ordered Tylenol 325 mg oral tablet 650 mg, 2, tablet, By Mouth, Every 6 hours, PRN, not to exceed 4000 mg/day, # 50 tablet, Refills 0,Tot. Refills 0, Maintenance, for pain, 06/07/23 7:59:00 EDT, Route to Pharmacy Electronically, [facility]/pharmacy #[id number], Partial fill upon patient request if... Start Date: 06/07/23 Status: Ordered varenicline 1mg tablet 1 tablet = 1 mg, By Mouth, 2 times a day, # 56 tablet, 0 Refills, Maintenance, 03/22/23 13:33:00 EDT, Tablet, Partial fill upon patient request if the prescription is for a schedule II opioid drug. Start Date: 03/22/23 Status: Ordered zolpidem 10 mg oral tablet 1 tablet = 10 mg, Daily at bedtime, TAKE 1 TABLET BY MOUTH AT BEDTIME NEEDED INSOMNIA Start Date: 03/22/23 Status: Ordered Problem List Condition Confirmation Course Effective Dates Status H ealth Status Informant MUSHTAQ II (cervical intraepithelial neoplasia II) Confirmed Active HIV positive Confirmed Active Insomnia Confirmed Active Uses Swiss as primary spoken language Confirmed Active Thrombocytopenia Confirmed Active Tobacco abuse Confirmed Active 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 Vital Signs Most recent to oldest [Reference Range]: 1 Height 154.94 cm (06/13/23 2:22 PM) Weight 52 kg (06/13/23 2:22 PM) Body Mass Index [18.5-24.99 kg/m2] 21.66 kg/m2 (06/13/23 2:22 PM) Social History Social History Type Response Tobacco Use: pt quit smoking 18 days ago, wearing a nicotene patch . Sex Implantable Device List Procedure Provider Procedure Date Device Type Site Reconstruction Mohs Stage 2 Valentin Luther MD 06/06/23 Unknown Nose Device Identifier Serial Number Lot or Batch Number Manufacturing Date Expiration Date Distinct Identification Code MRI Safety Implantable Status Assigning Authority Unknown [id number] Unknown Unknown 10/24/27 Unknown Unknown Active Unknown Patient Care team information Care Team Personnel Name: Geovany Sevilla MD Position: Reference Physician Member Role: PCP Address: Address: [address] [place] [id number] Name: Roro Barros LPN Position: S RN Member Role: Primary Care Nurse Care Team Related Persons Name: EFFIE ALBRECHT Name: THAD ROSE Address: [address] [address]
--- OUTSIDE RECORDS SUMMARY | 2024-04-02 10:58 | XMS_ITS | Continuity of Care Document ---
Author Organization [facility]NA[facility] Onc[facility] y Address [address] [place] [address]- Care Team Providers Care Leather Novelty Parts Cutter Name Role Phone Geovany Sevilla MD Primary Care Physician [phone] Encounter [facility] [place] Date(s): 05/14/22 - 06/13/22 [facility] PROJECT MANAGER Oncology [address] [place] [address]- us Attending Physician: Klarissa Hernandez Admitting Physician: Klarissa Hernandez Referring Physician: AdmtrKlarissa Allergies, Adverse Reactions, Alerts No Known Medication Allergies Problem List Condition Effective Dates Status Health Status Inform ant MUSHTAQ II (cervical intraepithe lial neoplasia II)(Confirmed) Active Insomnia(Confirmed) Active Thrombocytopenia(Confirmed) Active Tobacco abuse(Confirmed) Active 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 Social History Social History Type Response Smoking Status 5-9 cigarettes (betw een 1/4 to 1/2 pack)/day in last 30 days entered on: 05/14/22 Sex Care Team Personnel Name: Geovany Sevilla MD Address: [address] [place] [id number]
--- OUTSIDE RECORDS SUMMARY | 2024-04-02 10:58 | XMS_ITS | Continuity of Care Document ---
Author Organization [facility] Richard sandy Address [address] [place] [address] [address] [place] [address]- Care Team Providers Care Corporate Secretary Name Role Phone Po Geovany PITTMAN Primary Care Physician Encounter [facility] [place] Date(s): 07/25/23 - 08/24/23 [facility] [address] [place] [address]- Attending Physician: Ifeoma Recinos Allergies, Adverse Reactions, Alerts No Known Allergies Medications alendronate 70 mg oral tablet 1 tablet = 70 mg, By Mouth, Every 7 days, TAKE 1 TABLET BY MOUTH ONCE WEEKLY. TAKES ON SATURDAY' Start Date: 03/22/23 Status: Ordered Biktarvy oral tablet 1 tablet, By Mouth, Daily before lunch, TAKE 1 TABLET BY MOUTH EVERY DAY Start Date: 03/22/23 Status: Ordered fluticasone 50 mcg/inh nasal spray Nares, Both, Daily, SPRAY 2 SPRAYS INTO EACH NOSTRIL DAILY Start Date: 03/22/23 Status: Ordered imiquimod 5% topical cream See [...] each, 0 Refills, Maintenance, 06/07/23 10:46:00 EDT, [facility]/pharmacy #[id number], Partial fill upon patient request if the prescription is for a schedule II opioid drug., 2 sprays Nares, Both 4 times a... Start Date: 06/07/23 Status: Ordered varenicline 1mg [...] positive Confirmed Active Insomnia Confirmed Active Uses Azeri as primary spoken language Confirmed Active Thrombocytopenia Confirmed Active Tobacco abuse Confirmed Active 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 Social History Social History Type Response Tobacco Use: pt quit smoking 18 days ago, wearing a nicotene patch . Sex Implantable Device List Procedure Provider Procedure Date Device Type Site Reconstruction Mohs Stage 2 Valentin Luther MD 06/06/23 Unknown Nose Device Identifier Serial Number Lot or Batch Number Manufacturing Date Expiration Date Distinct Identification Code MRI Safety Implantable Status Assigning Authority Unknown [id number] Unknown Unknown 10/24/27 Unknown Unknown Active Unknown Patient Care team information Care Team Personnel Name: Geovany Sevilla MD Position: Reference Physician Member Role: PCP Address: Address: [address] [place] [address]- Name: Roro Barros LPN Position: S RN Member Role: Primary Care Nurse Care Team Related Persons Name: ROBERT ALBRECHT Name: BRANDY ALBRECHT Name: THAD ROSE Address: home [address] [place] [id number]
--- OUTSIDE RECORDS SUMMARY | 2024-04-02 10:58 | XMS_ITS | Continuity of Care Document ---
Author Organization [facility] SIDE TRIMMER Oncolog y Address [address] [place] [address]- Care Team Providers Care Roughing Mill Operator Name Role Phone Geovany Sevilla MD Primary Care Physician [facility] [id number] Date(s): 06/03/23 - 07/31/23 [facility]IDE [facility]IM[facility] On[facility] [address] [place] [id number] Attending Physician: Genet Mendoza MD Admitting Physician: Genet Mendoza MD Referring Physician: Geovany Sevilla MD Allergies, Adverse Reactions, Alerts No Known Allergies [...] Date: 06/03/23 Stop Date: 10/03/23 Status: Ordered mupirocin 2% topical ointment 1 application, Topically, 3 times a day, # 30 Gm, 1 Refills, Acute 08/05/23 11:40:00 EST, 07/04/23 11:40:00 EDT, [facility]intment, [id number], Partial fill upon patient request if the prescription isfor a schedule II opioid drug., 1 application Topic... Start Date: 07/04/23 Stop Date: 08/05/23 Status: Ordered Saline Mist 0.65% nasal spray 2 sprays, Nares, Both, 4 times a day, in each nostril, # 1 each, 0 Refills, Maintenance, 06/07/23 10:46:00 EDT, [facility]/pharmacy #[id number], Partial fill upon patient request if [...] positive Confirmed Active Insomnia Confirmed Active Uses Bhutanese as primary spoken language Confirmed Active Thrombocytopenia [...] MRI Safety Implantable Status Assigning Authority Unknown [id number] Unknown Unknown 10/24/27 Unknown Unknown Active Unknown Patient Care team information Care Team Personnel Name: Geovany Sevilla MD Position: Reference Physician Member Role: PCP Address: Address: [address] [place] [id number] Name: Roro Barros LPN Position: S RN Member Role: Primary Care Nurse Care Team Related Persons Name: ROBERT ALBRECHT Name: BRANDY ALBRECHT Name: THAD ROSE Address: home [address] [place] [id number]
--- OUTSIDE RECORDS SUMMARY | 2024-04-02 10:58 | XMS_ITS | Continuity of Care Document ---
Author Organization [facility] Care Address [address] [place] [address]- Care Team Providers Care Geospatial Applications Developer Name Role Phone Po Geovany PITTMAN Primary Care Physician [place] [facility] [place] Date(s): 02/06/24 - 03/07/24 [facility] [address] [place] [id number] Attending Physician: Klarissa Hernandez Admitting Physician: Klarissa Hernandez Referring Physician: AdmtrKlarissa Allergies, Adverse Reactions, Alerts No Known Allergies [...] NOSTRIL DAILY Start Date: 03/22/23 Status: Ordered Saline Mist 0.65% nasal spray 2 sprays, Nares, Both, 4 times a day, in each nostril, # 1 each, 0 Refills, Maintenance, 06/07/23 10:46:00 EDT, [facility]/pharmacy #[id number], Partial fill upon patient request if the prescription is for a schedule II opioid drug., 2 sprays Nares, Both 4 times a... Start Date: 06/07/23 Status: Ordered Saline Mist 0.65% nasal spray 2 sprays, Nares, Both, 4 times a day, in each nostril, # 1 each, 3 Refills, Maintenance, 12/16/23 10:09:00 EDT, [facility]/pharmacy #[id number], Partial fill upon patient request if the prescription is for a schedule II opioid drug., 2 sprays Nares, Both 4 times a... Start Date: 12/16/23 Status: Ordered varenicline 1mg tablet 1 tablet [...] positive Confirmed Active Insomnia Confirmed Active Uses Tamazight as primary spoken language Confirmed Active Thrombocytopenia [...] MRI Safety Implantable Status Assigning Authority Unknown [id number] Unknown Unknown 10/24/27 Unknown Unknown Active Unknown Patient Care team information Care Team Personnel Name: Geovany Sevilla MD Position: Reference Physician Member Role: PCP Address: Address: [address] [place] [address]- Name: Roro Barros LPN Position: S RN Member Role: Primary Care Nurse Care Team Related Persons Name: ROBERT ALBRECHT Name: BRANDY ALBRECHT Name: THAD ROSE Address: home [address] [place] [address]
--- OUTSIDE RECORDS SUMMARY | 2024-04-02 10:58 | XMS_ITS | Continuity of Care Document ---
Author Organization [facility] Richard sandy Address [address] [place] [address] [address] [place] [address]- Care Team Providers Care Quality Tech Name Role Phone Geovany Sevilla MD Primary Care Physician [phone] Encounter [facility] Date(s): 07/26/23 - 08/02/23 [facility] [address] [place] [address]- Attending Physician: Valentin Luther MD Referring Physician: Geovany Sevilla MD Allergies, [...] each, 0 Refills, Maintenance, 06/07/23 10:46:00 EDT, [facility]/pharmacy #[id number], Partial fill upon patient request if [...] positive Confirmed Active Insomnia Confirmed Active Uses Frisian as primary spoken language Confirmed Active Thrombocytopenia Confirmed Active Tobacco abuse Confirmed Active 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 Vital Signs Most recent to oldest [Reference Range]: 1 Height 155 cm (07/26/23 9:52 AM) Weight 50 kg (07/26/23 9:52 AM) Body Mass Index [18.5-24.99 kg/m2] 20.81 kg/m2 (07/26/23 9:52 AM) Social History Social History Type Response Tobacco Use: pt quit smoking 18 days ago, wearing a nicotene patch . Sex Implantable Device List Procedure Provider Procedure Date Device Type Site Reconstruction Mohs Stage 2 Valentin Luther MD 06/06/23 Unknown Nose Device Identifier Serial Number Lot or Batch Number Manufacturing Date Expiration Date Distinct Identification Code MRI Safety Implantable Status Assigning Authority Unknown [id number] Unknown Unknown 10/24/27 Unknown Unknown Active Unknown Patient Care team information Care Team Personnel Name: Geovany Sevilla MD Position: Reference Physician Member Role: PCP Address: Address: [address] [place] [id number]- Name: Roro Barros LPN Position: S RN Member Role: Primary Care Nurse Care Team Related Persons Name: ROBERT ALBRECHT Name: BRANDY ALBRECHT Name: THAD ROSE Address: [address] [address]
--- OUTSIDE RECORDS SUMMARY | 2024-04-02 10:58 | XMS_ITS | Continuity of Care Document ---
Author Organization [facility] ter Address [address] [place] [address]- Care Team Providers Care Cooker Meal Name Role Phone Geovany Sevilla MD Primary Care Physician Encounter [facility] Date(s): 07/18/23 - 07/18/[address] [address] Discharge Disposition: A-D/C Home Attending Physician: Valentin Luther MD Admitting Physician: Valentin Luther MD Referring Physician: Valentin Luther MD Allergies, Adverse Reactions, Alerts No Known Allergies Medications alendronate 70 mg oral tablet 1 tablet = 70 mg, By Mouth, Every 7 days, TAKE 1 TABLET BY MOUTH ONCE WEEKLY. TAKES ON Start Date: 03/22/23 Status: Ordered Augmentin 875 mg-125 mg oral tablet 1 tablet, By Mouth, Every 12 hours, for 7 days, with food or milk, # 14 tablet, 0 Refills, Acute 07/25/23 10:11:00 EDT, 07/18/23 10:11:00 EDT, Tablet, [facility]/pharmacy #[id number], Partial fill upon patient request if the prescription is for a schedule II opioi... Start Date: 07/18/23 Stop Date: 07/25/23 Status: Ordered Biktarvy oral tablet 1 tablet, By Mouth, Daily before lunch, TAKE 1 TABLET BY MOUTH EVERY DAY Start Date: 03/22/23 Status: Ordered fluticasone 50 mcg/inh nasal spray Nares, Both, Daily, SPRAY 2 SPRAYS INTO EACH NOSTRIL DAILY Start Date: 03/22/23 Status: Ordered ibuprofen 600 mg oral tablet 600 mg, 1, tablet, By Mouth, Every 6 hours, not to exceed 3200 mg/day with food or milk, # 40 tablet, Refills 0, Tot. Refills 0, Acute 07/25/23 17:00:00 EDT, 07/18/23 10:11:00 EDT, Route to Pharmacy Electronically, [facility]/pharmacy #[id number], Partial fill up... Start Date: 07/18/23 Stop Date: 07/25/23 Status: Ordered imiquimod 5% topical cream See [...] 08/05/23 11:40:00 EST, 07/04/23 11:40:00 EDT, Ointment, [facility]/pharmacy #[id number], Partial fill upon patient request if the prescription isfor a schedule II opioid drug., 1 application Topic... Start Date: 07/04/23 Stop Date: 08/05/23 Status: Ordered Oxycodone 5mg Oral Tablet (PACU ONLY) 5 mg, Tablet, By Mouth, Once, in PACU ONLY, PRN for Pain , Moderate, Routine, 07/18/23 10:15:00 EDT Start Date: 07/18/23 Stop Date: 07/18/23 Status: Completed Saline Mist 0.65% nasal spray 2 sprays, Nares, Both, 4 times a day, in each nostril, # 1 each, 0 Refills, Maintenance, 06/07/23 10:46:00 EDT, [facility]/pharmacy #[id number], Partial fill upon patient request if the prescription is for a schedule II opioid drug., 2 sprays Nares, Both 4 times a... Start Date: 06/07/23 Status: Ordered Tylenol 325 mg oral tablet 650 mg, 2, tablet, By Mouth, Every 6 hours, PRN, not to exceed 4000 mg/day, # 80 tablet, Refills 0,Tot. Refills 0, Acute 07/25/23 17:00:00 EDT, for fever, 07/18/23 10:11:00 EDT, Route to Pharmacy Electronically, [facility]/pharmacy #[id number], Partial fill upon... 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 Vital Signs Most recent to oldest [Reference Range]: 1 2 3 Height 155 cm (07/18/23 8:38 AM) 155 cm (07/17/23 10:50 AM) Weight 50 kg (07/18/23 8:38 AM) 52.2 kg (07/17/23 10:50 AM) Oxygen Saturation [94-100 %] 94 % (07/18/23 11:00 AM) 97 % (07/18/23 10:45 AM) 93 % *L* (07/18/23 10:30 AM) Pulse Rate [55-90 bpm] 67 bpm (07/18/23 8:38 AM) Body Mass Index [18.5-24.99 kg/m2] 20.81 kg/m2 (07/18/23 8:38 AM) 21.73 kg/m2 (07/17/23 10:50 AM) Blood Pressure [90-138/55-84 mm Hg] 140/81mm Hg *H* (07/18/23 11:00 AM) 136/73mm Hg (07/18/23 10:45 AM) 128/71mm Hg (07/18/23 10:30 AM) Respiratory Rate [16-30 br/min] 8 br/min *L* (07/18/23 11:08 AM) 9 br/min *L* (07/18/23 11:00 AM) 12 br/min *L* (07/18/23 10:45 AM) Temperature [96.8-100.4 DegF] 97.9 DegF (07/18/23 11:00 AM) 98.1 DegF (07/18/23 10:30 AM) 98.1 DegF (07/18/23 8:38 AM) Mode of Delivery (Oxygen) Room air (07/18/23 11:00 AM) Room air (07/18/23 10:45 AM) Room air (07/18/23 10:30 AM) Blood pressure sites Arm, left (07/18/23 10:45 AM) Arm, right (07/18/23 8:38 AM) Temperature Route Temporal (07/18/23 11:00 AM) Temporal (07/18/23 10:30 AM) Temporal (07/18/23 8:38 AM) Dry Weight 50 kg (07/18/23 8:38 AM) 52.2 kg (07/17/23 10:50 AM) Weight Obtained Via Standing scale (07/18/23 8:38 AM) Patient/family stated (07/17/23 10:50 AM) Dry Weight Obtained Via Standing scale (07/18/23 8:38 AM) Patient/family stated (07/17/23 10:50 AM) Social History Social History Type Response Tobacco Use: pt quit smoking 18 days ago, wearing a nicotene patch . Sex Implantable Device List Procedure Provider Procedure Date Device Type Site Reconstruction Mohs Stage 2 Valentin Luther MD 06/06/23 Unknown Nose Device Identifier Serial Number Lot or Batch Number Manufacturing Date Expiration Date Distinct Identification Code MRI Safety Implantable Status Assigning Authority Unknown [id number] Unknown Unknown 10/24/27 Unknown Unknown Active Unknown Note * Samanta Irvin RN: PERFORM Event Display: Discharge/Transfer Note Hospital Authored Date: [id number] Nursing Discharge Note Entered On: 07/18/2023 11:48 EDT Performed On: 07/18/2023 11:48 EDT by Samanta Irvin RN Nursing Discharge Note 2 Discharge Time : 07/11/2023 11:47 EDT Discharge Level of Care at Discharge : Home/Skilled Nursing/Foster Care Patient Left Unit Via : Wheelchair Patient Accompanied Off Unit with : Significant other DC Instructions Provided & Signed by Pt : Yes Patient Understands D/C Instructions : Yes Verbalized Understanding of D/C Plan By : Patient, Significant other Patient Instructions Discharge Signed : Yes Did Pt have Specialty Bed or Wound Vac : No Samanta Irvin RN - 07/18/2023 11:48 EDT * Samanta Irvin RN: PERFORM Event Display: Patient Education/Instruction Authored Date: [id number] Inpatient Adult Discharge Instructions [address] [address] Name: ORLANDO THAO : 1955 Visit: 07/18/2023 07:25:00 Current Date: 07/18/2023 11:23 Account: [id number] Inpatient Adult Discharge Instructions We would like to thank you for allowing us to assist you with your healthcare needs. The following includes patient education materials and information regarding your injury/illness. Our entire staffstrives to provide an excellent experience for our patients and their families. PLEASE ENSURE YOU FOLLOW-UP PER THE INSTRUCTIONS BELOW! ?? YOUR OPINION IS IMPORTANT TO US! Please complete the survey you may receive by mail or email. Your feedback will be used to make improvements to the healthcare experiences of our patients and their families. Surveys are administered by [employer] ?? If further treatment with your primary care physician or another doctor is recommended, it is important for you to keep the appointment. Call your primary care physician or return to the Emergency Department immediately if your condition worsens, fails to improve, or new symptoms develop. If you need to find a doctor, you can call [facility] [employer] Link for a referral at [phone] or toll free at [phone]) or log in to [email or web address].. ?? [facility], in keeping with [facility] guidance, no longer requires face masks for staff, patientsor visitors in most situations. Similiar to time spent indoors at other locations, there is the chance that you were exposed to repiratory viruses during your time with us (such as flu or COVID-19). If you develop symptoms concerning for a viral respiratory infection, please seek testing (and treatment if indicated) from your medical provider or home test kit. ?? You can view and manage your care through the patient portal or by using a health care logan of your choosing. Awareness Card is a website that allows you to securely view your medical information including your hospital discharge summary, office visit summaries, medications and follow-up visits. You can also request appointments, renew medications, and request access to your medical information using a health care logan of your choosing, or just ask a question. You can enroll at [email or web address] or register during your next office visit. You have been discharged from [facility], Patient Care Unit: [facility]. If you have any questions regarding these instructions after you leave, please call us and we will be happy to assist you. [facility] Your Care Team Attending Physician Valentin Luther MD Discharging Providers Valentin Luther MD Reason for Admission NOSE MOHS DEFECT CS DS Tests Performed Below is a partial list of the tests performed during your hospitalization. You may have had other tests and procedures not included in this list. Please discuss all test results with your provider. Primary Care Provider Geovany Sevilla MD Advance Directive Health Care Proxy on File Yes - Health Care Proxy Discharge Vitals Temperature: 97.9 DegF Height: 155 cm Pulse Rate: 67 bpm Weight: 50 kg Respiratory Rate:??8 br/min??Low Body Mass Index: 20.81 kg/m2 Systolic Blood Pressure:??140 mm Hg??High Body surface area: 1.47 Diastolic Blood Pressure: 81 mm Hg ?? Oxygen Saturation: 94 % ?? Studies Pending All tests and labs ordered during this hospital stay have been completed unless listed below. Please discuss all pending results with your provider listed above in these instructions. ?? No incomplete studies found What to do next Instructions From Your Doctor Can shower but avoid direct spray to the surgical site. ??Head of bed elevated. ??No icing the surgical site. ??No strenuous activity. ??Clean incisions gently/daily with warm soapy water and qtip then apply THIN layer of bacitracin to the incision. ??Follow up as instructed. ??Prescriptions (ibuprofen, tylenol, augmentin) sent to pharmacy on file. ?? Discharge Orders Instructions from your Care Team Follow all verbal and written instructions given by Dr. Luther ?? Follow up in [address] Luther ?? Prescriptions at [facility]- Next Tylenol due at 5:15PM, 11:15PM, 5:15AM, 5:15AM Ibuprofen due at 2:15PM, 8:15PM, 2:15AM, 8:15AM Antibiotic- Take twice a day ( 7:00AM and 7:00PM) Scheduled Follow-Up Appointments 2022 4:20 PM EDT ?? With: Ifeoma Recinos Where: [facility] Plastic Surgery [address] [place] [address]- Status: Pending Saturday 10:20 AM EST ?? With: Steph Saavedra Where: [facility] Plastic [address] [address]- Status: Pending You Need to Schedule the Following Appointments Follow Up with??Valentin Luther Where: [address] [place] [address] Dr Obando [address] [place] [phone]- Business (1) Follow Up with??Geovany Sevilla MD When:??In 0 days Where: [address] [place] [address]- Business (1) Discharge Medications THAO ORLANDO :1955 Visit Date:07/18/2023 Medications: Please continue your medications until treatment is completed or stopped by your provider. Medications not listed below should be discontinued. Discuss any questions related to medications with your provider. What How Much When Instructions Next Dose New Amoxicillin-Clavulanate (Augmentin 875 mg-125 mg oraltablet) 1 tab(s) Oral Every 12 hours Duration: 7 Days with food or milk ?? Pickup at [facility]/pharmacy #[id number] ? ( 7:00AM and 7:00PM) New Ibuprofen (ibuprofen 600 mg oral tablet) 1 tab(s) Oral Every 6 hours not to exceed 3200 mg/ day with food or milk ?? Pickup at [facility]/pharmacy #[id number] due at 2:15PM, 8:15PM, 2:15AM, 8:15AM Changed Acetaminophen (Tylenol 325 mg oral tablet) 2 tab(s) Oral Every 6 hours as needed for for fever not to exceed 4000 mg/ day ?? Pickup at [facility]/pharmacy #[id number] due at 5:15PM, 11:15PM, 5:15AM, 5:15AM Unchanged Alendronate (alendronate 70 mg oral tablet) 1 tab(s) Oral Every 7 days TAKE 1 TABLET BY MOUTH ONCE WEEKLY. ??TAKES ON SATURDAY' ?? Unchanged bictegravir/ emtricitabine/ tenofovir (Biktarvy oral tablet) 1 tab(s) Oral Daily before lunch TAKE 1 TABLET BY MOUTH EVERY DAY ?? Unchanged Fluticasone Nasal (fluticasone 50 mcg/ inh nasal spray) Nares, Both Daily SPRAY 2 SPRAYS INTO EACH NOSTRIL DAILY ?? Unchanged Imiquimod Topical (imiquimod 5% topical cream) See instructions Apply every other day, topically. Apply in a thin film to the affected skin of vulva and rub in gently and completely before betime and leave on for 6 to 10 hrs. In the morning wash skin gently. Do not start medication until directedby Dr. Mendoza. ?? Unchanged Mupirocin Topical (mupirocin 2% topical ointment) 1 logan Topically 3 times a day Unchanged Sodium Chloride Nasal (Saline Mist 0.65% nasal spray) 2 spray(s) Nares, Both 4 times a day in each nostril ?? Unchanged Varenicline (varenicline 1mg tablet) 1 tab(s) Oral Twice a day Unchanged Zolpidem (zolpidem 10 mg oral tablet) 1 tab(s) Daily at Bedtime TAKE 1 TABLET BY MOUTH AT BEDTIME NEEDED INSOMNIA ?? Pharmacy Information [facility]/pharmacy #[id number]: [address], [place] [id number] [phone] Test Results Below is a partial list of the most recent Laboratory test results done prior to this discharge. You may have had other tests and procedures not included in this list. Please discuss all test resultswith your provider. Allergies (NKA means No Known Allergies) NKA Problems Active Problems??(8) MUSHTAQ II (cervical intraepithelial neoplasia II)?? HIV positive?? Insomnia?? Thrombocytopenia?? Tobacco abuse?? Uses St Lucian as primary spoken language?? PAULA II (vulvar intraepithelial neoplasia II)?? PAULA III (vulvar intraepithelial neoplasia III)?? Education Materials Below is the list of Educational Leaflet Providered with your Discharge Instructions. ??NSAID Analgesic Schedule?? Surgery Medical Daystay Surgical Overnight Discharge Instructions?? Valuables and Belongings I fully understand and agree that [facility] accepts no responsibility for all my personal property including clothing, toilet articles, radios, jewelry, dentures, hearing aids, rings, money, or any other property that is in my possession or is brought to me after admission. I understand certain valuables may be placed in a hospital safe for a short period of time. I understand that the hospital is not liable for loss or damage due to accident, fire, or other natural occurrence while said property is in the safe. I accept full responsibility for any personal property that I keep with me, and will not hold the hospital responsible in case of loss or disappearance. I acknowledge that i have been encouraged to send valuables and belongings home. ?? Review of Valuable and Belonging List: With patient Date for Pt to Sign Valuables/Belongings: 07/18/23 08:38:00 ?? Valuables & Belongings ?? Clothes Electronic devices Jewelry Monetary Items Personal devices Miscellaneous Medications (Valuables) Valuables at Bedside Jacket, Pants, Shirt, Shoes, Undergarments Cell phone ? Valuables Sent Home ? Valuables Sent to Security ? Other Discharge Information ? Pulmonary Rehab Status?? Pulmonary Rehab Discharge Status?? Respiratory Rate:??8 br/min??Low ? Common Emergency Awareness Tips IS IT A STROKE? Act FAST and Check for these signs: FACE Does the face look uneven? ARM Does one arm drift down? SPEECH Does their speech sound strange? TIME Call at any sign of stroke ?? Heart Attack Signs Chest discomfort: Most heart attacks involve discomfort in the center of the chest and lasts more than a few minutes, or goes away and comes back. It can feel like uncomfortable pressure, squeezing, fullness or pain. Discomfort in upper body: Symptoms can include pain or discomfort in one or both arms, back, neck, jaw or stomach. Shortness of breath: With or without discomfort. Other signs: Breaking out in a cold sweat, nausea, or lightheaded. Remember, MINUTES DO MATTER. If you experience any of these heart attack warning signs, call to get immediate medical attention! ?? Smoking can increase your chances of developing chronic health problems and can cause harmful effects to other family members in your house. If you smoke, you are strongly encouraged to quit. Please call [facility] [employer] Link at [phone] or [phone]) or log in to [email or web address] for referrals to smoking cessation programs. ?? 652 Suicide & Crisis Lifeline is available 15/04 if you or someone you know needs to find a reason to keep living. By calling 428 you'll be connected to a skilled, trained counselor at a crisis center in your area. INPATIENT DISCHARGE INSTRUCTIONS SIGNATURE PAGE ORLANDO THAO Location:[facility] Registration Date and Time:07/18/2023 07:25 EDT Primary Care Phys[facility], Attending Physician: Valentin Luther MD, I THAO, ROSA, have received the above patient education materials/instructions and have verbalized understanding. If ambulance or transport services are being used I further acknowledge being given a choice of service. ?? If you need to contact me, please call me at this number: . Patient/Molded Goods Inspector Trimmer Name: Patient/Molded Goods Inspector Trimmer Signature: Relationship to Patient: Witness Name/Signature: Date: * Samanta Irvin RN: PERFORM, SIGN, VERIFY Event Display: Patient Education Handout Authored Date: [id number] * Samanta Irvin RN: PERFORM Event Display: Patient Education Leaflets Authored Date: [id number] NSAID Analgesic Schedule ?? 604 NSAID???s Analgesic Schedule ?? Pain is the primary source of illness following your procedure and can include dehydration, difficulty and painful swallowing, and weight loss. These symptoms can lead to increased post-operative visits and hospital readmission. The best way to control pain is to take pain medications regularly. Your doctor has recommended both Ibuprofen and Acetaminophen (generic/store brands are okay, too). These can be picked up over the counter at your pharmacy of choice. Follow the instructions on the bottle to determine the proper dosage to give. The simplest way to take these medications it to rotate the two at 3-hour intervals. Here is a sample diagram. The time you take your medications may vary from this example. Do not give Ibuprofen more than every 6 hours or Acetaminophen every 4 hours. Do not give Acetaminophen if your doctor has given you a prescription that contains Acetaminophen. ? * Samanta Irvin RN: PERFORM Event Display: Patient Education Leaflets Authored Date: [id number] Surgery Medical Daystay Surgical Overnight Discharge Instructions ?? 295 Medical Daystay/Surgical Overnight Discharge Instructions ? Since your coordination and judgment may be altered by medication and/or anesthesia, a responsible adult must drive you home from the hospital. ? If you have received medication for pain or sedation while under our care, you should not drive, operate machinery, drink alcohol, or sign any legal documents for 24 hours.?? You should have someone with you at home tonight. ? Remain at home the day of discharge.?? You may be up and about unless otherwise instructed by your physician. ? You may resume your daily prescription medication schedule.?? Any depressant medication should be avoided for 24 hours unless otherwise instructed by your surgeon or anesthesiologist. ? Call your physician for a follow-up appointment.? If you experience unusual or severe pain not relied by your pain medication, excessive bleedingor drainage, persistent nausea and vomiting, excessive swelling or redness, foul odor from incisionsite or fever over 100.6F, you need to call your physician. ? A follow-up phone call by a nurse will be made the day after your procedure.?? If you have stayed with us over night, you will not be receiving a follow-up phone call. ? Nausea and vomiting are a common side effect of prescription pain medication.?? We recommend that pills are not taken on an empty stomach.?? While taking any prescription pain medication you should not drive or drink alcohol. ? Patient Care team information Care Team Personnel Name: Geovany Sevilla MD Position: Reference Physician Member Role: PCP Address: Address: [address] [place] [address]- Name: Roro Barros LPN Position: S RN Member Role: Primary Care Nurse Care Team Related Persons Name: EFFIE ALBRECHT Name: THAD ROSE Address: [address] [address]
--- OUTSIDE RECORDS SUMMARY | 2024-04-02 10:58 | XMS_ITS | Continuity of Care Document ---
Author Organization [facility] MACHINE LAY OUT WORKER Oncolog y Address [address] [place] [address]- Care Team Providers Care Sales Trainee Name Role Phone Po Geovany PITTMAN Primary Care Physician [place] [facility] [place]17[place]23 - 05/17/23 [facility] MACHINE LAY OUT WORKER Oncology [address] [place], [place] [address] Allergies, Adverse Reactions, Alerts No Known Allergies [...] NOSTRIL DAILY Start Date: 03/22/23 Status: Ordered Tylenol 325 mg oral tablet 975 mg, 3, tablet, By Mouth, Every 6 hours, PRN, # 50 tablet, Refills 0, Tot. Refills 0, Maintenance, for pain, 05/13/23 16:07:00 EDT, Route to Pharmacy Electronically, [facility]/pharmacy #[id number], Partial fill upon patient request if the prescription is for a... Start Date: 05/13/23 Status: Ordered varenicline 1mg tablet 1 tablet [...] positive Confirmed Active Insomnia Confirmed Active Uses Tristanian as primary spoken language Confirmed Active Thrombocytopenia [...] Reference Physician Member Role: PCP Address: Address: [address] [place] [address]- Care Team Related Persons Name: EFFIE ALBRECHT Name: THAD ROSE Address: home [address] [place] [address]
--- OUTSIDE RECORDS SUMMARY | 2024-04-02 10:58 | XMS_ITS | Continuity of Care Document ---
Author Organization [employer] ter Address [address] [place] [address]- Care Team Providers Care Audio Visual Design Engineer Name Role Phone Geovany Sevilla MD Primary Care Physician Encounter [facility] [place] Date(s): 06/06/23 - 06/07/[address] [address] Discharge Disposition: A-D/C Home Attending Physician: Valentin Luther MD Admitting Physician: Valentin Luther MD Referring Physician: Valentin Luther MD Allergies, Adverse Reactions, Alerts No Known Allergies Medications alendronate 70 mg oral tablet 1 tablet = 70 mg, By Mouth, Every 7 days, TAKE 1 TABLET BY MOUTH ONCE WEEKLY. TAKES ON Start Date: 03/22/23 Status: Ordered amoxicillin-clavulanate 875 mg-125 mg oral tablet = 875 mg, By Mouth, 2 times a day, for 7 days, Dosage expressed as amoxicillin with food or milk, #14 tablet, 0 Refills, Acute 06/14/23 7:59:00 EDT, 06/07/23 7:59:00 EDT, Tablet, [facility]/pharmacy #[id number],Partial fill upon patient request if the prescri... Start Date: 06/07/23 Stop Date: 06/14/23 Status: Ordered Biktarvy oral tablet 1 tablet, [...] 06/07/23 7:58:00 EDT, Route to Pharmacy Electronically, [facility]/pharmac... Start Date: 06/07/23 Stop Date: 06/21/23 Status: [...] Date: 06/03/23 Stop Date: 10/03/23 Status: Ordered oxyCODONE 5 mg oral tablet 5 mg, Tablet, By Mouth, Once, PRN for Pain , Moderate, Routine, 06/07/23 7:48:00 EDT Start Date: 06/07/23 Stop Date: 06/07/23 Status: Completed oxyCODONE 5 mg oral tablet 5 mg, By Mouth, Every 6 hours, PRN, # 12 tablet, Refills 0, Tot. Refills 0, Acute 06/11/23 20:00:00EDT, Pain , Moderate, 06/07/23 7:58:00 EDT, Route to Pharmacy Electronically, [facility]/pharmacy #[id number], Partial fill upon patient request if the prescription... Start Date: 06/07/23 Stop Date: 06/11/23 Status: Ordered oxyCODONE 5 mg oral tablet 5 mg, Tablet, By Mouth, Every 6 hours, PRN for Pain , Moderate, Routine, 06/06/23 16:09:00 EDT Start Date: 06/06/23 Stop Date: 06/08/23 Status: Discontinued Saline Mist 0.65% nasal spray 2 sprays, Nares, Both, 4 times a day, in each nostril, # 1 each, 0 Refills, Maintenance, 06/07/23 10:46:00 EDT, [facility]/pharmacy #[id number], Partial fill upon patient request [...] 06/07/23 7:59:00 EDT, Route to Pharmacy Electronically, [facility]/pharmacy #[id number], Partial fill upon patient request if... Start [...] positive Confirmed Active Insomnia Confirmed Active Uses Citizen Of [place] as primary spoken language Confirmed Active Thrombocytopenia Confirmed Active Tobacco abuse Confirmed Active 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 Vital Signs Most recent to oldest [Reference Range]: 1 2 3 Oxygen Saturation [94-100 %] 96 % (06/07/23 11:07 AM) 96 % (06/07/23 4:34 AM) 96 % (06/06/23 11:29 PM) Pulse Rate [55-90 bpm] 55 bpm (06/07/23 11:07 AM) 60 bpm (06/07/23 4:34 AM) 55 bpm (06/06/23 11:29 PM) Blood Pressure [90-138/55-84 mm Hg] 144/75mm Hg *H* (06/07/23 11:07 AM) 159/80mm Hg *H* (06/07/23 4:34 AM) 143/67mm Hg *H* (06/06/23 11:29 PM) Respiratory Rate [16-30 br/min] 17 br/min (06/07/23 11:07 AM) 18 br/min (06/07/23 8:06 AM) 18 br/min (06/07/23 5:40 AM) Temperature [96.8-100.4 DegF] 97.9 DegF (06/07/23 11:07 AM) 98.9 DegF (06/07/23 4:34 AM) 98 DegF (06/06/23 11:29 PM) Liters per Minute 6 L/min (06/06/23 3:30 PM) Mode of Delivery (Oxygen) Room air (06/07/23 11:07 AM) Room air (06/07/23 4:34 AM) Room air (06/06/23 11:29 PM) Blood pressure sites Arm, left (06/07/23 4:34 AM) Arm, left (06/06/23 11:29 PM) Arm, left (06/06/23 7:55 PM) Temperature Route Oral (06/07/23 11:07 AM) Oral (06/07/23 4:34 AM) Oral (06/06/23 11:29 PM) Dry Weight 52.2 kg (06/06/23 12:12 PM) Dry Weight Obtained Via Standing scale (06/06/23 12:12 PM) Social History Social History Type Response Tobacco Use: pt quit smoking 18 days ago, wearing a nicotene patch . Sex Implantable Device List Procedure Provider Procedure Date Device Type Site Reconstruction Mohs Stage 2 Valentin Luther MD 06/06/23 Unknown Nose Device Identifier Serial Number Lot or Batch Number Manufacturing Date Expiration Date Distinct Identification Code MRI Safety Implantable Status Assigning Authority Unknown [id number] Unknown Unknown 10/24/28 Unknown Unknown Active Unknown Hospital Progress note * Marcel PITTMAN, Rosi Charles: PERFORM Event Display: Progress Note Hospital Authored Date: [id number] Patient: ??ORLANDO THAO ? Age:??67 Years?Sex:??Female?:??1955?? Subjective Patient seen and exmaine don rounds. Overnight had significant amount of pain and one episode of emesis associated with oxycodone. Was given a dose of zofran which helped. Otherwise tolerating a dietwithout any nausea or vomiting. Graft is well perfused with some small amount of slow venous oozingfrom graft edge. Denies any fevers, chest pain, or SOB. Review of Systems ?General: No chills, No fevers, no weight loss ?HEENT: No vision changes, headache or sore throat ?Resp: No dyspnea ?Cardiac: No chest discomfort or palpitations ?Abdomen: No abdominal pain, nausea, vomiting; No changes to BMs ?: No dysuria, changes to urination, or back pain ?Skin: No rashes, ulcers, pruritis ?MSK: No joint pain ?Neuro: No weakness, numbness?? Physical Exam Vitals & Measurements T:??98.9?F?? HR:??60??(Peripheral)?? RR:??18?? BP:??159/80?? SpO2:??96%?? PHYSICAL EXAMINATION: GENERAL: No acute distress. Non-toxic. Well appearing and interactive.?? HEAD: Normocephalic. Atraumatic.?? EYES: Extra-ocular movements intact. ENT: Patent nares and oropharynx.?? CARDIAC: Regular rate and rhythm RESPIRATORY: Equal and symmetric breaths GASTROINTESTINAL: Soft. Non-distended. Non-tender. MUSCULOSKELETAL: Moving all extremities equally. No calf fullness or tenderness.?? SKIN: Warm and well perfused. Intact skin turgor. No edema noted on exam.??Forehead flap well perfused. Small amount of venous oozing. No purulent drainage. Mild surrounding erythema. Assessment/Plan Ms. Thao is a 67yo female who is now s/p SCC/L forehead BCC s/p Mohs (06/05) s/p nasal rib graft/paramedian forehead/brow adv flap. Tolerated procedure without any complications. Patient appropriate for discharge home today once services have been set up. ?? Plan - Discharge home w/ services - Augmentin x7 days - Pain control: Tyl/Ibup/Oxy - Bacitracin to sutures daily - Xeroform to exposed surface of graft, do not wrap circumferentially ?Case discussed with Attending Physician: ??Ashkan Intake and Output Intake and Output Results?? This visit (24 hour periods starting at 07:00 EDT)? 06/07/23 *?? 06/06/23?? 06/05/23?? Total Summary?Intake mL?? --?? --?? --?Output mL?? --?? --?? --?Fluid Balance ?? --?? --?? --?? Intake (0)? Output (0)? Counts (1)?Urine Count ?? --?? 3?? --? * This column has not completed the indicated time period.?? Labs Last 24 Hours No qualifying data available. * Ruth Duff RN: PERFORM, SIGN, VERIFY Event Display: Progress Note Hospital Authored Date: [id number] Patient: ORLANDO THAO Age: 67 years Sex: Female : 1955 Associated Diagnoses: None Author: Ruth Duff RN Findings Pt admitted to Obs Unit via PACU s/p surgery. Pt arrived via stretcher and slide to bed. Pt A&Ox4 VSS, Denies dizziness, nausea or vomiting. Facial wound has some bloody drainage that PRECISION LENS POLISHER said was expected d/t thrombocytopenia. Pt oriented to unit, use of call conrad system, and care team. Call conrad within reach. Pt able to make needs known. Nursing Data Vital Signs : VITAL SIGNS SECTION 06/06/2023 17:35 EDT Pulse Rate 57 bpm Systolic Blood Pressure 150 mm Hg H Diastolic Blood Pressure 71 mm Hg Blood pressure sites Arm, left Mean Arterial Pressure 97 mm Hg Pulse Pressure 79 mm Hg . Note * Teddy Amador RN: PERFORM Event Display: Discharge/Transfer Note Hospital Authored Date: [id number] Nursing Discharge Note Entered On: 06/07/2023 15:54 EDT Performed On: 06/07/2023 15:53 EDT by Teddy Amador RN Nursing Discharge Note 2 Discharge Time : 06/07/2023 15:53 EDT Discharge Level of Care at Discharge : Homehealth/VNA Discharge VNA/Hospice/Home Care(v001) : [facility] [phone] Patient Left Unit Via : Wheelchair Patient Accompanied Off Unit with : Responsible adult DC Instructions Provided & Signed by Pt : Yes Patient Understands D/C Instructions : Yes Patient Instructions Discharge Signed : Yes Did Pt have Specialty Bed or Wound Vac : No Teddy Amador RN - 06/07/2023 15:53 EDT * Teddy Amador RN: PERFORM Event Display: Patient Education/Instruction Authored Date: [id number] Inpatient Adult Discharge Instructions [address] [address] Name: ORLANDO THAO : 1955 Visit: 06/06/2023 11:44:00 Current Date: 06/07/2023 14:38 Account: [id number] Inpatient Adult Discharge Instructions We would like [...] and their families. Surveys are administered by [employer] ?? If further treatment with your primary care physician or another doctor is recommended, it is important for you to keep the appointment. Call your primary care physician or return to the Emergency Department immediately if your condition worsens, fails to improve, or new symptoms develop. If you need to find a doctor, you can call [facility] Link for a referral at [phone] or toll free at [phone]) or log in to [email or web address].. ?? [facility], in keeping with [facility] guidance, no longer requires face masks for [...] a health care logan of your choosing. [employer] is a website that allows you to securely view your medical information including your hospital discharge summary, office visit summaries, medications and follow-up visits. You can also request appointments, renew medications, and request access to your medical information using a health care logan of your choosing, or just ask a question. You can enroll at [email or web address] or register during your next office visit. You have been discharged from [facility], Patient Care Unit: D3B. If you have any questions regarding these instructions after you leave, please call us and we will be happy to assist you. [facility] Your Care Team Attending Physician Valentin Luther MD Consulting Providers Valentin Luther MD Discharging Providers Marcel PITTMAN, Rosi Charles Reason for Admission NOSE AND LEFT BROW MOHS DEFECT (BCC) CS DS Tests Performed Below is a partial list of the tests performed during your hospitalization. You may have had other tests and procedures not included in this list. Please discuss all test results with your provider. CBC w/ Differential Primary Care Provider Geovany Sevilla MD Advance Directive Health Care Proxy on File Yes - Health Care Proxy Discharge Vitals Temperature: 97.9 DegF Pulse Rate: 55 bpm Respiratory Rate: 17 br/min Systolic Blood Pressure:??144 mm Hg??High Diastolic Blood Pressure: 75 mm Hg Oxygen Saturation: 96 % Studies Pending All tests and labs ordered during this hospital stay have been completed unless listed below. Please discuss all pending results with your provider listed above in these instructions. ?? Pathology Tissue Request () What to do next Instructions From Your Doctor Discharge Orders Instructions from your Care Team Can shower but avoid direct spray to the surgical site. ?? Head of bed elevated. ?? No icing the surgical site. ?? No strenuous activity. ?? Clean incisions gently/daily with warm soapy water and q-tip then apply THIN layer of bacitracin tothe incision. ?? Change xeroform on the flap pedicle raw surface daily, do NOT circumferentially wrap the pedicle toavoid strangulation of the flap.?? The nostril retainers and xeroform on the retainer is sewn in place, do NOT change.?? Follow up as instructed. ?? Prescriptions (ibuprofen, tylenol, oxycodone, augmentin, nasal saline sprays) sent to pharmacy on file. ?? Scheduled Follow-Up Appointments 2022 2:20 PM EDT ?? With: Ifeoma Recinos Where: [facility] Plastic Surgery [address] [place] [address]- Status: Pending Saturday 8:40 AM EDT ?? With: Genet Mendoza MD Where: [facility] SENIOR INFRASTRUCTURE ENGINEER Oncology [address] [facility] 4th [place] [address] [place] [address]- Status: Pending 2022 10:20 AM EDT ?? With: Ifeoma Recinos Where: [facility] Plastic Surgery [address] [place] [address]- Status: Pending You Need to Schedule the Following Appointments Follow Up with??Valentin Luther When:??Within 2 to 3 weeks Where: [address] [place] [address] Dr [address] [place] [address]- Business (1) Discharge Medications ORLANDO THAO :1955 Visit Date:06/06/2023 Medications: Please continue your medications until treatment is completed or stopped by your provider. Medications not listed below should be discontinued. Discuss any questions related to medications with your provider. What How Much When Instructions Next Dose New Amoxicillin-Clavulanate (amoxicillin-clavulanate 875 mg-125 mg oral tablet) 875 Milligram Oral Twice a day Duration: 7 Days Dosage expressed as amoxicillin ?? with food or milk ?? Pickup at [facility]/pharmacy #[id number]/07/23 9PM?? New Ibuprofen (ibuprofen 600 mg oral tablet) 600 Milligram Oral Every 6 hours as needed for Pain , Moderate Duration: 14 Days not to exceed 3200 mg/ day ?? with food or milk ?? Pickup at [facility]/pharmacy #[id number] As Needed New Oxycodone (oxyCODONE 5 mg oral tablet) 5 Milligram Oral Every 6 hours as needed for Pain , Moderate Pickup at [facility]/pharmacy #[id number] As Needed New Sodium Chloride Nasal (Saline Mist 0.65% nasal spray) 2 spray(s) Nares, Both 4 times a day in each nostril ?? Pickup at [facility]/pharmacy #[id number]/07/23 4PM Changed Acetaminophen (Tylenol 325 mg oral tablet) 2 tab(s) Oral Every 6 hours as needed for for pain not to exceed 4000 mg/ day ?? Pickup at [facility]/pharmacy #[id number] As Needed Unchanged Alendronate (alendronate 70 mg oral tablet) 1 tab(s) Oral Every 7 days TAKE 1 TABLET BY MOUTH ONCE WEEKLY. ??TAKES ON ?? As Prescribed Unchanged bictegravir/ emtricitabine/ tenofovir (Biktarvy oral tablet) 1 tab(s) Oral Daily before lunch TAKE 1 TABLET BY MOUTH EVERY DAY ?? 06/08/23 AM Unchanged Fluticasone Nasal (fluticasone 50 mcg/ inh nasal spray) Nares, Both Daily SPRAY 2 SPRAYS INTO EACH NOSTRIL DAILY ?? 06/08/23 AM Unchanged Imiquimod Topical (imiquimod 5% topical cream) See instructions Apply every other day, topically. Apply in a thin film to the affected skin of vulva and rub in gently and completely before betime and leave on for 6 to 10 hrs. In the morning wash skin gently. Do not start medication until directedby Dr. Mendoza. ?? 06/08/23 Unchanged Varenicline (varenicline 1mg tablet) 1 tab(s) Oral Twice a day 06/07/23 PM Unchanged Zolpidem (zolpidem 10 mg oral tablet) 1 tab(s) Daily at Bedtime TAKE 1 TABLET BY MOUTH AT BEDTIME NEEDED INSOMNIA ?? As Needed Pharmacy Information [facility]/pharmacy #[id number]: [address], [place] [id number] [phone] Test Results Below is a partial list of the most recent Laboratory test results done prior to this discharge. You may have had other tests and procedures not included in this list. Please discuss all test resultswith your provider. CBC w/ Differential (06/07/2023) ???WBC - 8.0 k/mm3???RBC - 5.22 m/mm3???Hgb - 14.4 Gm/dL???Hct - 44.7 %???MCV - 85.6 femtoliters???MCH - 27.6 pg???MCHC - 32.2 g/dL???Platelet Count - 69 k/mm3???RDW-SD - 45.0 femtoliters???MPV - NOTMEASURED???Nucleated RBC (Automated) - 0.0 #/100 WBC'S???Abs. NRBC - 0.0 k/mm3???Abs. Neut - 5.8 k/m m3???Abs. Lymph - 1.3 k/mm3???Abs. Stewart - 0.8 k/mm3???Abs. Eo - 0.0 k/mm3???Abs. Baso - 0.0 k/mm3???Neut % - 73.0 %???Lymph % - 16.6 %???Stewart % - 9.5 %???Eos % - 0.1 %???Baso % - 0.3 %???Imm Gran - 0.5 %???Abs. Imm Gran - 0.0 k/mm3 Allergies (NKA means No Known Allergies) NKA Problems Active Problems??(8) MUSHTAQ II (cervical intraepithelial neoplasia II)?? HIV positive?? Insomnia?? Thrombocytopenia?? Tobacco abuse?? Uses Citizen Of [place] as primary spoken language?? PAULA II (vulvar intraepithelial neoplasia II)?? PAULA III (vulvar intraepithelial neoplasia III)?? Education Materials Below is the list of Educational Leaflet Providered with your Discharge Instructions. Surgery Medical Daystay Surgical Overnight Discharge Instructions?NSAID Analgesic Schedule?? Valuables and Belongings I fully understand and agree that [facility] accepts no responsibility for all [...] to send valuables and belongings home. ?? Date for Pt to Sign Valuables/Belongings: 06/06/23 12:12:00 ?? Valuables & Belongings ?? Clothes Electronic devices Jewelry Monetary Items Personal devices Miscellaneous Medications (Valuables) Valuables at Bedside Pants, Shirt, Shoes Cell phone ? Valuables Sent Home ? Valuables Sent to Security ? Other Discharge Information ? Case Management Discharge Plan?? Discharge Plan?? Discharge Agency Information?? Discharge Level of Care at Discharge: Homehealth/VNA Name of Agency #1: [facility] Discharge VNA/Hospice/Home Care: [facility] [phone] Service Categories #1: Mcfp ?? Service Comments #1: [facility] will call you to coordinate an appointment time for nurse to visit. ?? Pulmonary Rehab Status?? Pulmonary Rehab Discharge Status?? Respiratory Rate: 17 br/min ? Common Emergency Awareness Tips IS IT [...] are strongly encouraged to quit. Please call [facility] Link at [phone] or [phone]) or log in to [email or web address] for referrals to smoking cessation programs. ?? 918 Suicide & Crisis Lifeline is available 15/04 if you or someone you know needs to find a reason to keep living. By calling 862 you'll be connected to a skilled, trained counselor at a crisis center in your area. INPATIENT DISCHARGE INSTRUCTIONS SIGNATURE PAGE ORLANDO THAO Location:[facility] Registration Date and Time:06/06/2023 11:44 EDT Primary Care Physician: Geovany Sevilla MD, Attending Physician: Valentin Luther MD, I ORLANDO THAO, have received the above patient education materials/instructions and have verbalized understanding. If ambulance or transport services are being used I further acknowledge being given a choice of service. ?? If you need to contact me, please call me at this number: . Patient/Drain Cleaner Name: Patient/Drain Cleaner Signature: Relationship to Patient: Witness Name/Signature: Date: * Nupur Houston RN: PERFORM, SIGN, VERIFY Event Display: Patient Education Handout Authored Date: * Nupur Houston RN: PERFORM Event Display: Patient Education Leaflets Authored Date: Surgery Medical Daystay Surgical Overnight Discharge Instructions [...] should not drive or drink alcohol. ? * Nupur Houston RN: PERFORM Event Display: Patient Education Leaflets Authored Date: [id number] NSAID Analgesic Schedule ?? 604 NSAID???s Analgesic [...] you a prescription that contains Acetaminophen. ? Patient Care team information Care Team Personnel Name: Geovany Sevilla MD Position: Reference Physician Member Role: PCP Address: Address: [address] [place] [address]- Name: Roro Barros LPN Position: S RN Member Role: Primary Care Nurse Care Team Related Persons Name: ALBRECHTYARELISEFFIE Name: THAD ROSE Address: home [address] [place] [address]
--- OUTSIDE RECORDS SUMMARY | 2024-04-02 10:58 | XMS_ITS | Continuity of Care Document ---
Author Organization [employer] [facility] Richard sandy Address [address] [place] [address] D[address] [place] [address]- Care Team Providers Care Arc And Gas Welder Name Role Phone Geovany Sevilla MD Primary Care Physician [phone] Encounter [facility] [place] [id number] Date(s): 09/27/23 - 10/04/[address] [place] [address]- Attending Physician: Valentin Luther MD Allergies, Adverse Reactions, [...] each, 0 Refills, Maintenance, 06/07/23 10:46:00 EDT, [id number], Partial fill upon patient request if the [...] positive Confirmed Active Insomnia Confirmed Active Uses Kazakh as primary spoken language Confirmed Active Thrombocytopenia Confirmed Active Tobacco abuse Confirmed Active 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 Sex Implantable Device List Procedure Provider Procedure Date Device Type Site Reconstruction Mohs Stage 2 Valentin Luther MD 06/06/23 Unknown Nose Device Identifier Serial Number Lot or Batch Number Manufacturing Date Expiration Date Distinct Identification Code MRI Safety Implantable Status Assigning Authority Unknown [id number] Unknown Unknown 10/24/27 Unknown Unknown Active Unknown Patient Care team information Care Team Personnel Name: Geovany Sevilla MD Position: Reference Physician Member Role: PCP Address: Address: [address] [place] [address] Name: Roro Barros LPN Position: S RN Member Role: Primary Care Nurse Care Team Related Persons Name: ROBERT ALBRECHT Name: BRANDY ALBRECHT Name: THAD ROSE Address: home [address] [place] [address]
--- OUTSIDE RECORDS SUMMARY | 2024-04-02 10:58 | XMS_ITS | Continuity of Care Document ---
Author Organization [facility] Richard sandy Address [address] [place] [address] [address] [place] [address]- Care Team Providers Care Fast Food Assistant Restaurant Manager Name Role Phone Geovany Sevilla MD Primary Care Physician [place] [facility] [id number] Date(s): 12/16/23 - 12/23/23 [facility] [address] [address] Attending Physician: Valentin Luther MD Allergies, Adverse [...] each, 0 Refills, Maintenance, 06/07/23 10:46:00 EDT, [facility]/pharmacy #[id number], Partial fill upon patient request if the prescription is for a schedule II opioid drug., 2 sprays Nares, Both 4 times a... 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 Sex Implantable Device List Procedure Provider Procedure Date Device Type Site Reconstruction Mohs Stage 2 Valentin Luther MD 06/06/23 Unknown Nose Device Identifier Serial Number Lot or Batch Number Manufacturing Date Expiration Date Distinct Identification Code MRI Safety Implantable Status Assigning Authority Unknown [id number] Unknown Unknown 10/24/27 Unknown Unknown Active Unknown Patient Care team information Care Team Personnel Name: Geovany Sevilla MD Position: Reference Physician Member Role: PCP Address: Address: [address] [place] [address]- Name: Roro Barros LPN Position: S RN Member Role: Primary Care Nurse Care Team Related Persons Name: ROBERT ALBRECHT Name: BRANDY ALBRECHT Name: THAD ROSE Address: home [address] [place] [address]
--- OUTSIDE RECORDS SUMMARY | 2024-04-02 10:58 | XMS_ITS | Continuity of Care Document ---
Author Organization [facility] Richard sandy Address [address] [place] [address] [address] [place] [address]- Care Team Providers Care Bushler Name Role Phone Po Geovany PITTMAN Primary Care Physician [place] [facility] [place] [id number] Date(s): 07/23/23 - 12/18/[address] [place] [address]- Attending Physician: Valentin Luther MD Allergies, Adverse [...] 0 Refills, Maintenance, 06/07/23 10:46:00 EDT, [id number], Partial fill upon patient [...] positive Confirmed Active Insomnia Confirmed Active Uses Croatian as primary spoken language Confirmed Active Thrombocytopenia [...] MRI Safety Implantable Status Assigning Authority Unknown [id number] Unknown Unknown 10/24/27 Unknown Unknown Active Unknown Patient Care team information Care Team Personnel Name: Geovany Sevilla MD Position: Reference Physician Member Role: PCP Address: Address: [address] [place] [address]- Name: Roro Barros LPN Position: S RN Member Role: Primary Care Nurse Care Team Related Persons Name: ROBERT ALBRECHT Name: BRANDY ALBRECHT Name: THAD ROSE Address: home [address] [place] [address]
--- OUTSIDE RECORDS SUMMARY | 2024-04-02 10:58 | XMS_ITS | Continuity of Care Document ---
Author Organization [facility] Richard sandy Address [address] [place] [address] [address] [place] [address]- Care Team Providers Care Business Development Specialist Name Role Phone Geovany Sevilla MD Primary Care Physician [phone] 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 Sex Implantable Device List Procedure Provider Procedure Date Device Type Site Reconstruction Mohs Stage 2 Valentin Luther MD 06/06/23 Unknown Nose Device Identifier Serial Number Lot or Batch Number Manufacturing Date Expiration Date Distinct Identification Code MRI Safety Implantable Status Assigning Authority Unknown [id number] Unknown Unknown 10/24/27 Unknown Unknown Active Unknown Patient Care team information Care Team Personnel Name: Geovany Sevilla MD Position: Reference Physician Member Role: PCP Address: Address: [address] [place] [address]- Name: Roro Barros LPN Position: S RN Member Role: Primary Care Nurse Care Team Related Persons Name: ROBERT ALBRECHT Name: BRANDY ALBRECHT Name: THAD ROSE Address: home [address] [place] [address]
--- OUTSIDE RECORDS SUMMARY | 2024-04-02 10:58 | XMS_ITS | Continuity of Care Document ---
Author Organization [facility] Care Address [address] [place] [address]- Care Team Providers Care Movement Therapist Name Role Phone Geovany Sevilla MD Primary [id number] - 10[facility]26[facility] [address] [place] [address]- Discharge Disposition: A-D/C Home Attending Physician: Lico Guzman MD Admitting Physician: Lico Guzman MD Referring Physician: Valentin Luther MD Allergies, [...] each, 0 Refills, Maintenance, 06/07/23 10:46:00 EDT, [facility]/pharmacy #[id number], Partial fill upon patient request if the [...] Active Insomnia Confirmed Active Uses Citizen Of [place]ib[place] as primary spoken language Confirmed Active Thrombocytopenia Confirmed Active Tobacco abuse Confirmed Active 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 Vital Signs Most recent to oldest [Reference Range]: 1 Height 155 cm (08/26/23 1:05 PM) Weight 51.7 kg (08/26/23 1:05 PM) Oxygen Saturation [94-100 %] 100 % (08/26/23 1:05 PM) Pulse Rate [55-90 bpm] 87 bpm (08/26/23 1:05 PM) Body Mass Index [18.5-24.99 kg/m2] 21.52 kg/m2 (08/26/23 1:05 PM) Blood Pressure [90-138/55-84 mm Hg] 161/ 75mm Hg *H* (08/26/23 1:05 PM) Temperature [96.8-100.4 DegF] 98.5 DegF (08/26/23 1:05 PM) Mode of Delivery (Oxygen) Room air (08/26/23 1:05 PM) Blood pressure sites Arm, right (08/26/23 1:05 PM) Temperature Route Temporal (08/26/23 1:05 PM) Dry Weight 51.7 kg (08/26/23 1:05 PM) Weight Obtained Via Standing scale (08/26/23 1:05 PM) Dry Weight Obtained Via Standing scale (08/26/23 1:05 PM) Social History Social History Type Response Tobacco Use: pt quit smoking 18 days ago, wearing a nicotene patch . Sex Implantable Device List Procedure Provider Procedure Date Device Type Site Reconstruction Mohs Stage 2 Valentin Luther MD 06/06/23 Unknown Nose Device Identifier Serial Number Lot or Batch Number Manufacturing Date Expiration Date Distinct Identification Code MRI Safety Implantable Status Assigning Authority Unknown [id number] Unknown Unknown 10/24/27 Unknown Unknown Active Unknown Laboratory * Event Display: Non BH Lab Results Authored Date: * Event Display: Non BH Lab Results Authored Date: Patient Care team information Care Team Personnel Name: Geovany Sevilla MD Position: Reference Physician Member Role: PCP Address: Address: [address] [place] [id number] Name: Roro Barros LPN Position: BHS RN Member Role: Primary Care Nurse Care Team Related Persons Name: ROBERT ALBRECHT Name: BRANDY ALBRECHT Name: THAD ROSE Address: home [address] [place] [address]
--- OUTSIDE RECORDS SUMMARY | 2024-04-02 10:58 | XMS_ITS | Continuity of Care Document ---
Author Organization [facility]PL[facility]ANCE SERVICER Oncolog y Address [address] [place] [address]- Care Team Providers Care Senior Microsoft Net Developer Name Role Phone Po Geovany PITTMAN Primary Care Physician Encounter [facility] [place] Date(s): 05/29/23 - 06/28/23 [facility]PLIANCE SERVICER Oncology [address] [place], [place] [address] Allergies, Adverse Reactions, Alerts No Known Allergies [...] each, 0 Refills, Maintenance, 06/07/23 10:46:00 EDT, [facility]/pharmacy #[id number], Partial fill upon patient request if the [...] 06/07/23 7:59:00 EDT, Route to Pharmacy Electronically, [facility]/pharmacy #[id number], Partial fill upon patient request if... Start [...] positive Confirmed Active Insomnia Confirmed Active Uses Cay[place] Islander as primary spoken language Confirmed Active Thrombocytopenia [...] MRI Safety Implantable Status Assigning Authority Unknown [id number] Unknown Unknown 10/24/27 Unknown Unknown Active Unknown Patient Care team information Care Team Personnel Name: Geovany Sevilla MD Position: Reference Physician Member Role: PCP Address: Address: [address] [place] [address]- Name: Roro Barros LPN Position: S RN Member Role: Primary Care Nurse Care Team Related Persons Name: EFFIE ALBRECHT Name: THAD ROSE Address: home [address] [place] [address]
--- OUTSIDE RECORDS SUMMARY | 2024-04-02 10:58 | XMS_ITS | Continuity of Care Document ---
Author Organization [facility] Address [address] [place] [address]- Care Team Providers Care Auto Service Representative Name Role Phone Po Geovany PITTMAN Primary Care Physician [place] [facility] [place] [facility] [id number] Date(s): 05/20/23 - 06/19/23 [facility] [address] [place], [place] [address] Attending Physician: Klarissa Hernandez Admitting Physician: AdmtrKlarissa Referring Physician: Admtr ArBeth Allergies, Adverse Reactions, Alerts No Known Allergies [...] each, 0 Refills, Maintenance, 06/07/23 10:46:00 EDT, [facility]/pharmacy #[id number], Partial fill upon patient request if [...] 06/07/23 7:59:00 EDT, Route to Pharmacy Electronically, [facility]/pharmacy #[id number], Partial fill upon patient request if... [...] positive Confirmed Active Insomnia Confirmed Active Uses Romansh as primary spoken language Confirmed Active Thrombocytopenia [...] MRI Safety Implantable Status Assigning Authority Unknown [id number] Unknown Unknown 10/24/27 Unknown Unknown Active Unknown Patient Care team information Care Team Personnel Name: Geovany Sevilla MD Position: Reference Physician Member Role: PCP Address: Address: [address] [place] [address] Name: Roro Barros LPN Position: S RN Member Role: Primary Care Nurse Care Team Related Persons Name: EFFIE ALBRECHT Name: THAD ROSE Address: [address] [address]
--- OUTSIDE RECORDS SUMMARY | 2024-04-02 10:58 | XMS_ITS | Continuity of Care Document ---
Author Organization [facility] Plastic Richard sandy Address [address] [place] [address] [address] [place] [address]- Care Team Providers Care Mold Loft Worker Name Role Phone Po Geovany PITTMAN Primary Care Physician [phone] [place] [facility] [id number] Date(s): 06/19/23 - 09/12/[address] [place] [address]- Attending Physician: Not on Staff, Attending MD Allergies, Adverse Reactions, Alerts No Known [...] 0 Refills, Maintenance, 06/07/23 10:46:00 EDT, [facility]/pharmacy #[id number], Partial fill upon patient request if the [...] positive Confirmed Active Insomnia Confirmed Active Uses Dutch as primary spoken language Confirmed Active Thrombocytopenia [...] MRI Safety Implantable Status Assigning Authority Unknown [id number] Unknown Unknown 10/24/27 Unknown Unknown Active Unknown Patient Care team information Care Team Personnel Name: Geovany Sevilla MD Position: Reference Physician Member Role: PCP Address: Address: [address] [place] [id number] Name: Roro Barros LPN Position: S RN Member Role: Primary Care Nurse Care Team Related Persons Name: ROBERT ALBRECHT Name: BRANDY ALBRECHT Name: THAD ROSE Address: home [address] [place] [address]
--- OUTSIDE RECORDS SUMMARY | 2024-04-02 10:58 | XMS_ITS | Continuity of Care Document ---
Author Organization [facility] CUTTER Oncolog y Address [address] [place] [address]- Care Team Providers Care Film Sound Engineer Name Role Phone Geovany Sevilla MD Primary Care Physician [phone] Encounter [facility] [place] Date(s): 03/25/23 - 04/24/23 [facility] Oncology [address] [place] [id number] Allergies, Adverse Reactions, Alerts No Known Medication [...] positive Confirmed Active Insomnia Confirmed Active Uses Danish as primary spoken language Confirmed Active Thrombocytopenia [...] Reference Physician Member Role: PCP Address: Address: [address] [place] [address]- [place] Care Team Related Persons Name: EFFIE ALBRECHT Name: THAD ROSE Address: home [address] [place] [address]
--- OUTSIDE RECORDS SUMMARY | 2024-04-02 10:58 | XMS_ITS | Continuity of Care Document ---
Author Organization [facility] LOBBY CONCIERGE Oncolog y Address [address] [place] [address]- Care Team Providers Care Travel Professional Name Role Phone Po Geovany PITTMAN Primary Care Physician [phone] Encounter [facility] Date(s): 05/10/23 - 06/09/23 [facility] CONCIERGE Oncology [address] [place], [place] [address] Allergies, Adverse Reactions, Alerts No [...] 06/14/23 7:59:00 EDT, 06/07/23 7:59:00 EDT, Tablet, [id number] fill upon patient request if the prescri... [...] 06/07/23 7:58:00 EDT, Route to Pharmacy Electronically, [facility]/pharmac... Start Date: 06/07/23 Stop Date: 06/21/23 [...] 06/07/23 7:58:00 EDT, Route to Pharmacy Electronically, [facility]/pharmacy #[id number], Partial fill upon patient request if the prescription... Start Date: 06/07/23 Stop Date: 06/11/23 Status: Ordered Saline Mist 0.65% nasal spray 2 sprays, Nares, Both, 4 times a day, in each nostril, # 1 each, 0 Refills, Maintenance, 06/07/23 10:46:00 EDT, [facility]/pharmacy #[id number], Partial fill upon patient request [...] 06/07/23 7:59:00 EDT, Route to Pharmacy Electronically, [id number], Partial fill upon patient request if... 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
--- OUTSIDE RECORDS SUMMARY | 2024-04-02 10:58 | XMS_ITS | Continuity of Care Document ---
Author Organization [facility] TAPPER OPERATOR Oncolog y Address [address] [place] [address]- Care Team Providers Care Supervisor Quilting Name Role Phone Geovany Sevilla MD Primary Care Physician Encounter [facility] [place] Date(s): 03/15/23 - 05/01/23 [facility] TAPPER OPERATOR Oncology [address] [place] [id number] Attending Physician: Genet Mendoza MD Admitting Physician: [...] positive Confirmed Active Insomnia Confirmed Active Uses Australian as primary spoken language Confirmed Active Thrombocytopenia [...] Reference Physician Member Role: PCP Address: Address: [address] [place] [address]- Care Team Related Persons Name: EFFIE ALBRECHT Name: THAD ROSE Address: [address] [address]
--- OUTSIDE RECORDS SUMMARY | 2024-04-02 10:58 | XMS_ITS | Continuity of Care Document ---
Author Organization [facility] COMPLIANCE LEAD Oncolog y Address [address] [place] [address]- Care Team Providers Care Collaborative Teacher Name Role Phone Geovany Sevilla MD Primary Care Physician Encounter [facility] ACCT R [id number] Date(s): 07/01/23 - 07/31/23 [facility] COMPL[facility]ANCE LEAD Oncology [address] [place] [address]- Attending Physician: Klarissa Hernandez Admitting Physician: Klarissa [...] each, 0 Refills, Maintenance, 06/07/23 10:46:00 EDT, [facility]/pharmacy #[id number], Partial fill upon patient [...] positive Confirmed Active Insomnia Confirmed Active Uses Tanzanian as primary spoken language Confirmed Active Thrombocytopenia [...] MRI Safety Implantable Status Assigning Authority Unknown [id number] Unknown Unknown 10/24/27 Unknown Unknown Active Unknown Laboratory * Event Display: Non Lab Results Authored Date: Patient Care team information Care Team Personnel Name: Geovany Sevilla MD Position: Reference Physician Member Role: PCP Address: Address: [address] [place] [id number] Name: Roro Barros LPN Position: S RN Member Role: Primary Care Nurse Care Team Related Persons Name: ROBERT ALBRECHT Name: BRANDY ALBRECHT Name: THAD ROSE Address: home [address] [place] [address]
--- OUTSIDE RECORDS SUMMARY | 2024-04-02 10:58 | XMS_ITS | Continuity of Care Document ---
Author Organization [facility] ter Address [address] [place] [address]- Care Team Providers Care Insight Director Name Role Phone Po Geovany PITTMAN Primary Care Physician [place] [facility] [place](s): 03/20/24 - 03/20/[address] [address] Discharge Disposition: A-D/C Home Attending Physician: Lico Guzman MD Admitting Physician: Lico Guzman MD Referring Physician: Lico Guzman MD Allergies, Adverse Reactions, Alerts No Known [...] positive Confirmed Active Insomnia Confirmed Active Uses Greenlandic as primary spoken language Confirmed Active Thrombocytopenia Confirmed Active Tobacco abuse Confirmed Active 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 Results Radiology Reports * Exam Date Time Procedure Performing Provider Status 03/20/24 10:[address]le [address] Kristin Arenas (Verified) Notes: (US Guide Needle Place) Reason For Exam: SUB Q NODULE US Guide Needle Place Patient: ORLANDO THAO Study Date: 03/20/2024 Performing: Sudhakar Castle PA-C Referring: : 1955 Age: 68 Gender: FEMALE PROCEDURE: US Guided Biopsy of left cheek mass INDICATION: History of Squamous cell carcinoma of the nose, patient with new nodule noted on recent MRI RETAINING ROOM CUTTER(S): Sudhakar Castle PA-C ANESTHESIA: 1% Lidocaine was administered for local anesthesia. TECHNIQUE: Informed consent was obtained from the patient prior to the start of the procedure. A timeout procedure was done, confirming the correct patient and the correct side of procedure. Limited ultrasound evaluation of was performed. A suitable access site was identified, marked, prepped and draped in standard sterile fashion. One percent buffered lidocaine was administered for local anesthesia. Under continuous real-time ultrasound guidance, 1 FNA was performed using a 20 gauge kt biopsy needle. Tissue samples were submitted to cytology. A post procedure scan was performed. COMPLICATIONS: The patient tolerated the procedure well and in stable condition. There were no immediate complications. PLAN: Routine post procedure monitoring. IMPRESSION: Successful, uncomplicated, ultrasound guided biopsy of left cheek/nasolabial fold mass. The post biopsy scan demonstrated no hematoma or bleeding. Signed By Sudhakar Castle PA-C On 03/20/2024 11:18:21 AM Signed By Sudhakar Castle PA-C On 03/20/2024 11:18:21 AM Sudhakar Castle PA-C Equipment : EnforaTT 20 x 9 Dictated By: Sudhakar Ferreira Dictated Date/Time: 03/20/24 10:15 a Reviewed By: Sudhakar Ferreira Signed By: Sudhakar Ferreira Signed Date/Time: 03/20/24 10:15 am Transcribed By: JASS Transcribed Date/Time: 03/20/24 10:15 am Vital Signs Most recent to oldest [Reference Range]: 1 Height 155 cm (03/20/24 8:31 AM) Weight 50 kg (03/20/24 8:31 AM) Oxygen Saturation [94-100 %] 96 % (03/20/24 8:24 AM) Pulse Rate [55-90 bpm] 76 bpm (03/20/24 8:24 AM) Blood Pressure [90-138/55-84 mm Hg] 135/ 72mm Hg (03/20/24 8:24 AM) Respiratory Rate [16-30 br/min] 18 br/mi n (03/20/24 8:24 AM) Temperature [96.8-100.4 DegF] 98.0 DegF (03/20/24 8:24 AM) Mode of Delivery (Oxygen) Room air (03/20/24 8:24 AM) Blood pressure sites Arm, left (03/20/24 8:24 AM) Temperature Route Oral (03/20/24 8:24 AM) Dry Weight 50 kg (03/20/24 8:31 AM) Social History Social History Type Response Tobacco Use: pt quit smoking 18 days ago, wearing a nicotene patch . Sex Implantable Device List Procedure Provider Procedure Date Device Type Site Reconstruction Mohs Stage 2 Valentin Luther MD 9/14/23 Unknown Nose Device Identifier Serial Number Lot or Batch Number Manufacturing Date Expiration Date Distinct Identification Code MRI Safety Implantable Status Assigning Authority Unknown [id number] Unknown Unknown 10/24/27 Unknown Unknown Active Unknown Hospital Progress note * Aysha Villagomez RN: PERFORM, SIGN, VERIFY, SIGN, MODIFY Event Display: Progress Note Hospital Authored Date: [id number] Patient: ORLANDO THAO Age: 68 years Sex: Female : 1955 Associated Diagnoses: None Author: Aysha Villagomez RN Findings Nursing Data IV Lines. : IV Lines. 03/20/2024 8:00 EDT Right Antecubital 22 gauge Peripheral IV Activity: Start Peripheral IV Insertion Date/Time: 03/20/2024 8:43 Peripheral IV Number of Attempts: 1 Peripheral IV Site Assessment: Flushes Well, Good Blood return . Vital Signs : VITAL SIGNS SECTION 03/20/2024 8:24 EDT Temperature 98.0 DegF Temperature Route Oral Pulse Rate 76 bpm Respiratory Rate 18 br/min Systolic Blood Pressure 135 mm Hg Diastolic Blood Pressure 72 mm Hg Blood pressure sites Arm, left Mean Arterial Pressure 93 mm Hg Pulse Pressure 63 mm Hg Oxygen Saturation 96 % Mode of Delivery (Oxygen) Room air . Narrative/Incidental Biopsy Pt arrived on unit at 0830 NPO status confirmed Labs sent . Patient aware of planned procedure. Call conrad within . * Aysha Villagomez RN: PERFORM Event Display: Progress Note Hospital Authored Date: [id number] patient returned from planned procedure no complaints of new or increased pain patient skin clean and dry Note * Sudhakar Momin RN: PERFORM Event Display: Discharge/Transfer Note Hospital Authored Date: [id number] Nursing Discharge Note Entered On: 03/20/2024 11:45 EDT Performed On: 03/20/2024 11:45 EDT by Sudhakar Momin RN Nursing Discharge Note 2 Discharge Time : 03/20/2024 11:45 EDT Discharge Level of Care at Discharge : Home/Nursing Home/Foster Care Patient Left Unit Via : Wheelchair Patient Accompanied Off Unit with : Responsible adult DC Instructions Provided & Signed by Pt : Yes Patient Understands D/C Instructions : Yes Patient Instructions Discharge Signed : Yes Did Pt have Specialty Bed or Wound Vac : No Sudhakar Momin RN - 03/20/2024 11:45 EDT Patient Care team information Care Team Personnel Name: Geovany Sevilla MD Position: Reference Physician Member Role: PCP Address: Address: [address] [place] [id number] Name: Roro Barros LPN Position: S RN Member Role: Primary Care Nurse Care Team Related Persons Name: ROBERT ALRBECHT Name: BRANDY ALBRECHT Name: THAD ROSE Address: home [address] [place] [address]
--- OUTSIDE RECORDS SUMMARY | 2024-04-02 10:58 | XMS_ITS | Continuity of Care Document ---
Author Organization [facility] Address [address] [place] [address]- Care Team Providers Care Production Director Name Role Phone Geovany Sevilla MD Primary Care Physician [phone] [id number] [address] [place] [address] Discharge Disposition: A-D/C Home Attending Physician: Lico [...] each, 0 Refills, Maintenance, 06/07/23 10:46:00 EDT, [facility]/pharmacy #[id number], Partial fill upon patient request if the prescription is for a schedule II opioid drug., 2 sprays Nares, Both 4 times a... Start Date: 06/07/23 Status: Ordered Saline Mist 0.65% nasal spray 2 sprays, Nares, Both, 4 times a day, in each nostril, # 1 each, 3 Refills, Maintenance, 12/16/23 10:09:00 EDT, [facility]/pharmacy #[id number], Partial fill upon patient request [...] positive Confirmed Active Insomnia Confirmed Active Uses Kinyarwanda as primary spoken language Confirmed Active Thrombocytopenia [...] Device Type Site Reconstruction Mohs Stage 2 Ashkan PITTMAN, Valentin Bradley 06/06/23 Unknown Nose Device Identifier Serial Number Lot or Batch Number Manufacturing Date Expiration Date Distinct Identification Code MRI Safety Implantable Status Assigning Authority Unknown [id number] Unknown Unknown 10/24/27 Unknown Unknown Active Unknown Laboratory * Event Display: Non Lab Results Authored Date: * Event Display: Non Lab Results Authored Date: Patient Care team information Care Team Personnel Name: Geovany Sevilla MD Position: Reference Physician Member Role: PCP Address: Address: [address] [place] [address]- Name: Roro Barros LPN Position: S RN Member Role: Primary Care Nurse Care Team Related Persons Name: ROBERT ALBRECHT Name: BRANDY ALBRECHT Name: THAD ROSE Address: home [address] [place] [address]
--- OUTSIDE RECORDS SUMMARY | 2024-04-02 10:59 | XMS_ITS | Continuity of Care Document ---
Author Organization [facility] Address [address] [place] [address]- Care Team Providers Care Loom Control Chain Builder Name Role Phone Geovany Sevilla MD Primary Care Physician En[facility] Date(s): 04/04/23 - 05/04/23 [facility] [address] [place] [id number] Allergies, Adverse Reactions, Alerts No Known Medication [...] positive Confirmed Active Insomnia Confirmed Active Uses Swedish as primary spoken language Confirmed Active Thrombocytopenia [...] Reference Physician Member Role: PCP Address: Address: [address] [place] [address]- [place] Care Team Related Persons Name: EFFIE ALBRECHT Name: THAD ROSE Address: home [address] [place] [address]
--- OUTSIDE RECORDS SUMMARY | 2024-04-02 10:59 | XMS_ITS | Continuity of Care Document ---
Author Organization [facility] Address [address] [place] [address]- Care Team Providers Care Mounting Machine Operator Name Role Phone Po Geovany PITTMAN Primary Care Physician Encounter [facility] [place] Date(s): 04/02/22 - 05/02/22 [facility] On[facility] [address] [place] [address] Allergies, Adverse Reactions, Alerts No Known Medication Allergies Problem List Condition Effective Dates Status Health Status Inform ant 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
--- OUTSIDE RECORDS SUMMARY | 2024-04-02 10:59 | XMS_ITS | Continuity of Care Document ---
Author Organization [facility] sandy Address [address] [place] [address] [address] [place] [address]- Care Team Providers Care Temperature Inspector Name Role Phone Po Geovany PITTMAN Primary Care Physician [place] [facility] [place] 12[place]23 [facility] [address] [place] [address]- Allergies, Adverse Reactions, Alerts No Known Allergies [...] 0 Refills, Maintenance, 06/07/23 10:46:00 EDT, [facility]/pharmacy #[id number], Partial fill upon patient request if the [...] positive Confirmed Active Insomnia Confirmed Active Uses Yemeni as primary spoken language Confirmed Active Thrombocytopenia [...] MRI Safety Implantable Status Assigning Authority Unknown [id number] Unknown Unknown 10/24/27 Unknown Unknown Active Unknown Patient Care team information Care Team Personnel Name: Geovany Sevilla MD Position: Reference Physician Member Role: PCP Address: Address: [address] [place] [address]- Name: Roro Barros LPN Position: S RN Member Role: Primary Care Nurse Care Team Related Persons Name: ROBERT ALBRECHT Name: BRANDY ALBRECHT Name: THAD ROSE Address: home [address] [place] [address]
--- OUTSIDE RECORDS SUMMARY | 2024-04-02 10:59 | XMS_ITS | Continuity of Care Document ---
Author Organization [facility] Address [address] [place] [address]- Care Team Providers Care Clinical Trials Manager Name Role Phone Po Geovany PITTMAN Primary Care Physician Encounter [facility] [place] Date(s): 04/17/23 - 05/17/23 [facility] [address] [place], [place] [address] Allergies, Adverse Reactions, Alerts No Known [...] 05/13/23 16:07:00 EDT, Route to Pharmacy Electronically, [facility]/pharmacy #[id number], Partial fill upon patient request if the [...] positive Confirmed Active Insomnia Confirmed Active Uses Zambian as primary spoken language Confirmed Active Thrombocytopenia [...] Reference Physician Member Role: PCP Address: Address: [address] [place] [address]- Care Team Related Persons Name: EFFIE ALBRECHT Name: THAD ROSE Address: home [address] [place] [address]
--- OUTSIDE RECORDS SUMMARY | 2024-04-02 10:59 | XMS_ITS | Continuity of Care Document ---
Author Organization [facility] Address [address] [place] [address]- Care Team Providers Care Printing Machine Operator Tape Rules Name Role Phone Geovany Sevilla MD Primary Care Physician Encounter [facility] [place] Date(s): 06/21/22 - 07/21/22 [facility] [address] [place], [place] [address] Allergies, Adverse Reactions, Alerts No Known Medication Allergies Problem List Condition Confirmation Course Effective Dates Status H ealth Status Informant MUSHTAQ II (cervical intraepithelial neoplasia II) Confirmed Active Insomnia Confirmed Active Thrombocytopenia Confirmed Active Tobacco abuse Confirmed Active 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
--- OUTSIDE RECORDS SUMMARY | 2024-04-02 10:59 | XMS_ITS | Continuity of Care Document ---
Author Organization [facility] Address [address] [place] [address]- Care Team Providers Care Aeronautical Products Sales Engineer Name Role Phone Geovany Sevilla MD Primary Care Physician En[place] [facility] [place] Date(s): 04/11/22 - 05/30/22 [facility] On[facility] [address] [place] [address] us Attending Physician: Alisha Nicolas MD Admitting Physician: Alisha Nicolas MD Referring Physician: Geovany Sevilla MD Allergies, [...] Team Personnel Name: Geovany Sevilla MD Address: [address] [place], [place] [address]
--- OUTSIDE RECORDS SUMMARY | 2024-04-02 10:59 | XMS_ITS | Continuity of Care Document ---
Author Organization [facility] ter Address [address] [place] [address]- Care Team Providers Care Drafting Supervisor Name Role Phone Po Geovany PITTMAN Primary Care Physician Encounter 02/27/24 - 02/28/[address] [address] Attending Physician: Not on Staff, Attending MD Referring Physician: Not on Staff, Referring MD Allergies, Adverse Reactions, Alerts No Known [...] positive Confirmed Active Insomnia Confirmed Active Uses Qatari as primary spoken language Confirmed Active Thrombocytopenia Confirmed Active Tobacco abuse Confirmed Active 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 Results Radiology Reports * Exam Date Time Procedure Performing Provider Status 02/27/24 2:43 PM MRI Orbit,Face,Neck W+W/O Contrast Auth (Verified) Notes: (MRI Orbit,Face,Neck W+W/O Contrast) Reason For Exam: focus on facial nervesIndications:- Squamous Cell Carcinoma Of Skin Of Nose;focus on facial nervesIndications:- 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 Evaluate nose, left cheek, cranial nerves. Rule out recurrent disease, spread along cranial nerves. TECHNIQUE: Multiplanar, multisequence MRI of the neck was performed with and without intravenous contrast. 10 mL of Dotarem intravenous contrast was administered. COMPARISON: None. FINDINGS: Visualized intracranial structures: Small scattered T2 hyperintense foci in the white matter, nonspecific but likely to reflect chronic small vessel disease. Otherwise normal appearance of the visualized brain and extra-axial spaces. No abnormal intracranial cranial nerve enhancement. Orbits: Normal. No mass, inflammatory change, or abnormal enhancement. Paranasal sinuses: Small amount of layering fluid small amount of layering fluid in the left sphenoid sinus. Otherwise unremarkable. Mastoids: Small bilateral mastoid effusions. Mucosal surfaces: There appears to be a defect in the anterior nasal septum measuring approximately 1 cm. No adjacent septal thickening. Mucosal surfaces of the nasopharynx and visualized oral cavity and oropharynx appear normal and symmetric. No nodularity or hyperenhancement is seen. Superficial and deep spaces of the face: There is an oblong focus of T2 hyperintense signal and enhancement in the superficial soft tissues of the medial left cheek immediately lateral to the nose, with surrounding T1 hypointense, enhancing tissue resulting in thickening of the superficial soft tissues. The central cystic or necrotic T2 hyperintense component measures 7 x 3 mm, and the surrounding area of enhancement is estimated at 2.7 x 1.0 cm. There is abnormal asymmetric enhancing soft tissue extending directly from this area of enhancement to the left infraorbital nerve canal, with asymmetric enhancement and expansion of the infraorbital nerve (e.g. series 9 image 23; series 10, image 19). This is best seen inferior to the orbit, but there is no definite abnormal enhancement or asymmetry at the level of the foramen rotundum posteriorly (e.g., see symmetric appearance on coronal T1 series 6 image 13; this level is slightly degraded by susceptibility artifact on the postcontrast images). There is preserved fat in the pterygopalatine fossa. There is no convincing asymmetry of the cavernous sinus. No abnormal enhancement is seen in the left Meckel's cave or along the cisternal left trigeminal nerve. Cervical lymph nodes: Mild symmetric prominence of bilateral level 1B and 2 lymph nodes, retaining normal morphology and not meeting size criteria for enlargement, nonspecific. Salivary glands: The parotid glands and submandibular glands are normal. Vascular structures: Major flow voids are maintained. Bones: Marrow signal is preserved. IMPRESSION: 1. Abnormal soft tissue thickening and enhancement in the superficial soft tissues of the left medial cheek surrounding a small nonenhancing T2 hyperintense focus (cystic or necrotic change). This is concerning for recurrent tumor given the history of skin cancer of the nose. 2. In addition, there is abnormal thickening and enhancement along the left infraorbital nerve (V2) within the infraorbital nerve canal, highly suspicious for perineural spread of tumor. No definite asymmetry or abnormal enhancement is seen in the left foramen rotundum, cavernous sinus, or intracranial trigeminal nerve. A Significant actionable finding will be communicated to the ordering or responsible provider by the medical records department. Receipt of this communication by the responsible or ordering provider will be documented in [facility] Findings, message ID [id number]. Electronically Signed By: Gloria Shaw MD Dictated By: Not on Staff , IONA PITTMAN Dictated Date/Time: 02/28/24 12:15 p Reviewed By: Not on Staff , IONA PITTMAN Signed By: Not on Staff , IONA PITTMAN Signed Date/Time: 02/28/24 12:15 pm Transcribed By: IVETH Transcribed Date/Time: 02/28/24 12:15 pm Social History Social History Type Response Tobacco Use: pt quit smoking 18 days ago, wearing a nicotene patch . Sex Implantable Device List Procedure Provider Procedure Date Device Type Site Reconstruction Mohs Stage 2 Valentin Luther MD 06/06/23 Unknown Nose Device Identifier Serial Number Lot or Batch Number Manufacturing Date Expiration Date Distinct Identification Code MRI Safety Implantable Status Assigning Authority Unknown [id number] Unknown Unknown 10/24/27 Unknown Unknown Active Unknown Patient Care team information Care Team Personnel Name: Geovany Sevilla MD Position: Reference Physician Member Role: PCP Address: Address: [address] [place] [address]- Name: Roro Barros LPN Position: S RN Member Role: Primary Care Nurse Care Team Related Persons Name: ROBERT ALBRECHT Name: BRANDY ALBRECHT Name: THAD ROSE Address: home [address] [place] [address]
--- OUTSIDE RECORDS SUMMARY | 2024-04-02 10:59 | XMS_ITS | Continuity of Care Document ---
Author Organization [facility] Richard sandy Address [address] [place] [address] [address] [place] [address]- Care Team Providers Care Bass Viol Repairer Name Role Phone Po Geovany PITTMAN Primary Care Physician [phone] Encounter [facility] Date(s): 06/19/23 - 08/24/23 [facility] [address] [place] [address]- Attending Physician: Ifeoma Recinos Allergies, Adverse Reactions, [...] each, 0 Refills, Maintenance, 06/07/23 10:46:00 EDT, [facility]/pharmacy #[id number], Partial fill upon patient request if the [...] positive Confirmed Active Insomnia Confirmed Active Uses Macedonian as primary spoken language Confirmed Active Thrombocytopenia [...] MRI Safety Implantable Status Assigning Authority Unknown [id number] Unknown Unknown 10/24/27 Unknown Unknown Active Unknown Patient Care team information Care Team Personnel Name: Geovany Sevilla MD Position: Reference Physician Member Role: PCP Address: Address: [address] [place] [address]- Name: Roro Barros LPN Position: S RN Member Role: Primary Care Nurse Care Team Related Persons Name: ROBERT ALBRECHT Name: BRANDY ALBRECHT Name: THAD ROSE Address: home [address] [place] [address]
--- OUTSIDE RECORDS SUMMARY | 2024-04-02 10:59 | XMS_ITS | Continuity of Care Document ---
Author Organization [facility] ter Address [address] [place] [address]- Care Team Providers Care Landcare Facilitator Name Role Phone Po Geovany PITTMAN Primary Care Physician [place] [facility] [place] [id number] Date(s): 06/07/23 - 07/07/[address] [address]- Attending Physician: Not on Staff, Attending MD Admitting Physician: Not on Staff, Admitting MD Referring Physician: Not on Staff, Referring [...] Refills, Maintenance, 06/07/23 10:46:00 EDT, [facility]/pharmacy #[id number], Partial fill upon patient request [...] 06/07/23 7:59:00 EDT, Route to Pharmacy Electronically, [facility]/pharmacy #[id number], Partial fill upon patient request if... [...] positive Confirmed Active Insomnia Confirmed Active Uses Malay as primary spoken language Confirmed Active Thrombocytopenia [...] MRI Safety Implantable Status Assigning Authority Unknown [id number] Unknown Unknown 10/24/27 Unknown Unknown Active Unknown Patient Care team information Care Team Personnel Name: Geovany Sevilla MD Position: Reference Physician Member Role: PCP Address: Address: [address] [place] [address] Name: Roro Barros LPN Position: S RN Member Role: Primary Care Nurse Care Team Related Persons Name: EFFIE ALBRECHT Name: THAD ROSE Address: home [address] [place] [address]
--- OUTSIDE RECORDS SUMMARY | 2024-04-02 10:59 | XMS_ITS | Continuity of Care Document ---
Author Organization [facility] Richard sandy Address [address] [place] [address] [address] [place] [address]- Care Team Providers Care Senior Cognos Developer Name Role Phone Geovany Sevilla MD Primary Care Physician [phone] [facility] [place] [id number] Date(s): 09/02/23 - 09/09/23 [facility] [address] [place] [address]- Attending Physician: Valentin Luther MD Referring Physician: [...] Refills, Maintenance, 06/07/23 10:46:00 EDT, [facility]/pharmacy #[id number], Partial fill upon patient request if the [...] positive Confirmed Active Insomnia Confirmed Active Uses Indonesian as primary spoken language Confirmed Active Thrombocytopenia Confirmed Active Tobacco abuse Confirmed Active 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 Sex Implantable Device List Procedure Provider Procedure Date Device Type Site Reconstruction Mohs Stage 2 Valentin Luther MD 06/06/23 Unknown Nose Device Identifier Serial Number Lot or Batch Number Manufacturing Date Expiration Date Distinct Identification Code MRI Safety Implantable Status Assigning Authority Unknown [id number] Unknown Unknown 10/24/27 Unknown Unknown Active Unknown Patient Care team information Care Team Personnel Name: Geovany Sevilla MD Position: Reference Physician Member Role: PCP Address: Address: [address] [place] [id number]- Name: Roro Barros LPN Position: S RN Member Role: Primary Care Nurse Care Team Related Persons Name: ROBERT ALBRECHT Name: BRANDY ALBRECHT Name: THAD ROSE Address: home [address] [place] [id number]
--- OUTSIDE RECORDS SUMMARY | 2024-04-02 10:59 | XMS_ITS | Continuity of Care Document ---
Author Organization [facility] Address [address] [place] [id number]- Care Team Providers Care Rn Progressive Care Name Role Phone Geovany Sevilla MD Primary Care Physician Encounter [facility] [place] Date(s): 05/25/22 - 06/28/[address] [address]- [place] Attending Physician: Genet Mendoza MD Admitting Physician: Genet Mendoza MD Allergies, Adverse Reactions, Alerts No Known [...] Personnel Name: Geovany Sevilla MD Address: Address: [address] [place] [address]
--- OUTSIDE RECORDS SUMMARY | 2024-04-02 10:59 | XMS_ITS | Continuity of Care Document ---
Author Organization [facility] Richard sandy Address [address] [place] [address] [address] [place] [address]- Care Team Providers Care Millinery Designer Name Role Phone Geovany Sevilla MD Primary Care Physician Encounter [facility] [place] Date(s): 03/16/24 - 03/23/24 [facility] [address] [address] Attending Physician: Valentin Luther MD Referring Physician: [...] positive Confirmed Active Insomnia Confirmed Active Uses Estonian as primary spoken language Confirmed Active Thrombocytopenia Confirmed Active Tobacco abuse Confirmed Active 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 Sex Implantable Device List Procedure Provider Procedure Date Device Type Site Reconstruction Mohs Stage 2 Valentin Luther MD 06/06/23 Unknown Nose Device Identifier Serial Number Lot or Batch Number Manufacturing Date Expiration Date Distinct Identification Code MRI Safety Implantable Status Assigning Authority Unknown [id number] Unknown Unknown 10/24/27 Unknown Unknown Active Unknown Patient Care team information Care Team Personnel Name: Geovany Sevilla MD Position: Reference Physician Member Role: PCP Address: Address: [address] [place] [id number]- Name: Roro Barros LPN Position: S RN Member Role: Primary Care Nurse Care Team Related Persons Name: ROBERT ALBRECHT Name: BRANDY ALBRECHT Name: THAD ROSE Address: home [address] [place] [id number]
--- OUTSIDE RECORDS SUMMARY | 2024-04-02 10:59 | XMS_ITS | Continuity of Care Document ---
Author Organization [facility] ter Address [address] [place] [address]- Care Team Providers Care Skin Care Specialist Name Role Phone Po Geovany PITTMAN Primary Care Physician [place] [facility] [place] 05/13/23 - 05/13/[address] [id number] Discharge Disposition: A-D/C Home Attending Physician: Genet Mendoza MD Admitting Physician: Genet Mendoza MD Referring Physician: Genet Mendoza MD Allergies, Adverse Reactions, [...] NOSTRIL DAILY Start Date: 03/22/23 Status: Ordered Oxycodone 5mg Oral Tablet (PACU ONLY) 5 mg, Tablet, By Mouth, Once, in PACU ONLY, PRN for Pain , Moderate, Routine, 05/13/23 15:16:00 EDT Start Date: 05/13/23 Stop Date: 05/13/23 Status: Completed Tylenol 325 mg oral tablet 975 mg, 3, tablet, By Mouth, Every 6 hours, PRN, # 50 tablet, Refills 0, Tot. 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 Vital Signs Most recent to oldest [Reference Range]: 1 2 3 Height 154.94 cm (05/13/23 1:05 PM) 154.94 cm (05/10/23 9:25 AM) Weight 52.73 kg (05/13/23 1:05 PM) 52.73 kg (05/10/23 9:25 AM) Oxygen Saturation [94-100 %] 100 % (05/13/23 5:00 PM) 99 % (05/13/23 4:45 PM) 96 % (05/13/23 4:30 PM) Pulse Rate [55-90 bpm] 82 bpm (05/13/23 1:05 PM) Body Mass Index [18.5-24.99 kg/m2] 21.96 kg/m2 (05/13/23 1:05 PM) 21.96 kg/m2 (05/10/23 9:25 AM) Blood Pressure [90-138/55-84 mm Hg] 136/80mm Hg (05/13/23 5:00 PM) 139/81mm Hg *H* (05/13/23 4:45 PM) 128/73mm Hg (05/13/23 4:30 PM) Respiratory Rate [16-30 br/min] 16 br/min (05/13/23 5:00 PM) 16 br/min (05/13/23 4:45 PM) 18 br/min (05/13/23 4:41 PM) Temperature [96.8-100.4 DegF] 97.5 DegF (05/13/23 5:00 PM) 97.4 DegF (05/13/23 4:00 PM) 98.5 DegF (05/13/23 1:05 PM) Liters per Minute 6 L/min (05/13/23 4:00 PM) Mode of Delivery (Oxygen) Room air (05/13/23 4:15 PM) Face shield (05/13/23 4:00 PM) Room air (05/13/23 1:05 PM) Blood pressure sites Arm, left (05/13/23 4:00 PM) Temperature Route Temporal (05/13/23 5:00 PM) Temporal (05/13/23 4:00 PM) Temporal (05/13/23 1:05 PM) Dry Weight 51.6 kg (05/13/23 1:05 PM) 52.73 kg (05/10/23 9:25 AM) Weight Obtained Via Patient/family state d (05/10/23 9:25 AM) Dry Weight Obtained Via Standing scale (05/13/23 1:05 PM) Patient/family stated (05/10/23 9:25 AM) Social History Social History Type Response Smoking Status 5-9 cigarettes (betw een 1/4 to 1/2 pack)/day in last 30 days entered on: 05/14/22 Sex Note * Gloria Ferguson RN: PERFORM Event Display: Patient Education/Instruction Authored Date: [id number] Inpatient Adult Discharge Instructions [address] [id number] Name: ORLANDO THAO : 1955 Visit: 05/13/2023 11:14:00 Current Date: 05/13/2023 16:16 Account: [id number] Inpatient Adult Discharge Instructions We would like [...] and their families. Surveys are administered by [employer] ?? If further treatment with your primary care physician or another doctor is recommended, it is important for you to keep the appointment. Call your primary care physician or return to the Emergency Department immediately if your condition worsens, fails to improve, or new symptoms develop. If you need to find a doctor, you can call [facility] for a referral at [phone] or toll free at [phone] ([phone]) or log in to [email or web address] ?? You can view and manage your care through the patient portal or by using a health care logan of your choosing. [employer] is a website that allows you to securely view your medical information including your hospital discharge summary, office visit summaries, medications and follow-up visits. You can also request appointments, renew medications, and request access to your medical information using a health care logan of your choosing, or just ask a question. You can enroll at [email or web address] or register during your next office visit. You have been discharged from [facility], Patient Care Unit: [facility]. If you have any questions regarding these instructions after you leave, please call us and we will be happy to assist you. [facility] Your Care Team Attending Physician Reji PITTMAN, Genet Consulting Providers Chanell GUZMAN, Sd Bar[place]; Reji PITTMAN, Genet Discharging Providers Fede Banks MD, Panda Reason for Admission PAULA IIIDS CS Tests Performed Below is a partial list of the tests performed during your hospitalization. You may have had other tests and procedures not included in this list. Please discuss all test results with your provider. CBC Type and Screen Primary Care Provider Geovany Sevilla MD Advance Directive Health Care Proxy on File No Discharge Vitals Temperature: 97.4 DegF Height: 154.94 cm Pulse Rate: 82 bpm Weight: 52.73 kg Respiratory Rate:??7 br/min??Low Body Mass Index: 21.96 kg/m2 Systolic Blood Pressure: 113 mm Hg Body surface area: 1.51 Diastolic Blood Pressure: 70 mm Hg ?? Oxygen Saturation: 98 % ?? Studies Pending All tests and labs ordered during this hospital stay have been completed unless listed below. Please discuss all pending results with your provider listed above in these instructions. ?? Pathology Tissue Request () What to do next Instructions From Your Doctor Discharge Orders Follow discharge instructions on hand out. Call surgeon for any questions or concerns Scheduled Follow-Up Appointments Saturday 10:30 AM EDT ?? With: Rene HAIR, Carlos Watkins Where: [facility] [address] [place] [address]- Status: Pending Saturday 10:30 AM EDT ?? With: Anaya Corona Where: [facility] Oncology [address]th [place] [address] [place] [address]- Status: Pending 2022 2:00 PM EDT ?? Where: [facility] Status: Pending 2022 2:20 PM EDT ?? With: Ifeoma Recinos Where: [facility] Plastic Surgery [address] [place] [address]- Status: Pending 2022 10:20 AM EDT ?? With: Ifeoma Recinos Where: [facility] Plastic Surgery [address] [place] [address]- Status: Pending You Need to Schedule the Following Appointments Follow Up with??Genet Mendoza MD When:??Within 1 to 2 weeks Where: [address] [place] [address] [place] [address]- Follow Up with??Genet Mendoza MD When:??Within 1 to 2 weeks Where: [address] [place] [address] [place] [address]- Discharge Medications ORLANDO THAO :1955 Visit Date:05/13/2023 Medications: Please continue your medications until treatment is completed or stopped by your provider. Medications not listed below should be discontinued. Discuss any questions related to medications with your provider. What How Much When Instructions Next Dose New Acetaminophen (Tylenol 325 mg oral tablet) 3 tab(s) Oral Every 6 hours as needed for for pain Pickup at [facility]/pharmacy #[id number] may take at any time Changed Alendronate (alendronate 70 mg oral tablet) 1 [...] SPRAYS INTO EACH NOSTRIL DAILY ?? Unchanged Varenicline (varenicline 1mg tablet) 1 tab(s) Oral Twice a day Unchanged Zolpidem (zolpidem 10 mg oral tablet) 1 tab(s) Daily at Bedtime TAKE 1 TABLET BY MOUTH AT BEDTIME NEEDED INSOMNIA ?? Pharmacy Information [facility]/pharmacy #[id number]: [address] [place], [place] [id number] [phone] Test Results Below is a partial list of the most recent Laboratory test results done prior to this discharge. You may have had other tests and procedures not included in this list. Please discuss all test resultswith your provider. CBC (05/13/2023) ???WBC - 4.1 k/mm3???RBC - 5.06 m/mm3???Hgb - 14.3 Gm/dL???Hct - 44.1 %???MCV - 87.2 femtoliters???MCH - 28.3 pg???MCHC - 32.4 g/dL???Platelet Count - 64 k/mm3???RDW-SD - 45.4 femtoliters???MPV - NOTMEASURED???Nucleated RBC (Automated) - 0.0 #/100 WBC'S???Abs. NRBC - 0.0 k/mm3 Type and Screen (05/13/2023) ???Blood Type - A Positive???Antibody Screen - Negative Allergies (NKA means No Known Allergies) NKA Problems Active Problems??(8) MUSHTAQ II (cervical intraepithelial neoplasia II)?? HIV positive?? Insomnia?? Thrombocytopenia?? Tobacco abuse?? Uses Slovak as primary spoken language?? PAULA II (vulvar intraepithelial neoplasia II)?? PAULA III (vulvar intraepithelial neoplasia III)?? Education Materials Below is the list of Educational Leaflet Providered with your Discharge Instructions. Anesthesia: General Anesthesia?? Valuables and Belongings I fully understand and agree that [facility] accepts no responsibility for all my personal [...] ?? Date for Pt to Sign Valuables/Belongings: 05/13/23 13:05:00 ?? Valuables & Belongings ?? Clothes Electronic devices Jewelry Monetary Items Personal devices Miscellaneous Medications (Valuables) Valuables at Bedside Pants, Shirt, Shoes, Undergarments Cell phone ? Valuables Sent Home ? Valuables Sent to Security ? Other Discharge Information ? Pulmonary Rehab Status?? Pulmonary Rehab Discharge Status?? Respiratory Rate:??7 br/min??Low ? Common Emergency Awareness Tips IS [...] are strongly encouraged to quit. Please call [facility] at [phone] or [phone] ([phone]) or log in to [email or web address] for referrals to smoking cessation programs. ?? 224 Suicide & Crisis Lifeline is available 15/04 if you or someone you know needs to find a reason to keep living. By calling 601 you'll be connected to a skilled, trained counselor at a crisis center in your area. INPATIENT DISCHARGE INSTRUCTIONS SIGNATURE PAGE ORLANDO THAO Location:[facility] Registration Date and Time:05/13/2023 11:14 EDT Primary Care Physician: Geovany Sevilla MD, Attending Physician: Genet Mendoza MD, I ORLANDO THAO, have received the above patient education materials/instructions and have verbalized understanding. If ambulance or transport services are being used I further acknowledge being given a choice of service. ?? If you need to contact me, please call me at this number: . Patient/Anesthesiology Technologist Name: Patient/Anesthesiology Technologist Signature: Relationship to Patient: Witness Name/Signature: Date: * Gloria Ferguson RN: PERFORM Event Display: Patient Education/Instruction Authored Date: [id number] Inpatient Adult Discharge Instructions [address] [address] Name: ORLANDO THAO : 1955 Visit: 05/13/2023 11:14:00 Current Date: 05/13/2023 15:38 Account: [id number] Inpatient Adult Discharge Instructions We would like [...] and their families. Surveys are administered by [employer] ?? If further treatment with your primary care physician or another doctor is recommended, it is important for you to keep the appointment. Call your primary care physician or return to the Emergency Department immediately if your condition worsens, fails to improve, or new symptoms develop. If you need to find a doctor, you can call [facility] for a referral at [phone] or toll free at [phone]) or log in to [email or web address].. ?? You can view and manage your care through the patient portal or by using a health care logan of your choosing. [employer] is a website that allows you to securely view your medical information including your hospital discharge summary, office visit summaries, medications and follow-up visits. You can also request appointments, renew medications, and request access to your medical information using a health care logan of your choosing, or just ask a question. You can enroll at [email or web address] or register during your next office visit. You have been discharged from [facility], Patient Care Unit: [facility]. If you have any questions regarding these instructions after you leave, please call us and we will be happy to assist you. [facility] Your Care Team Attending Physician Reji PITTMAN, Genet Consulting Providers Sd Lua DO Reason for Admission PAULA IIIDS CS Tests Performed Below is a partial list of the tests performed during your hospitalization. You may have had other tests and procedures not included in this list. Please discuss all test results with your provider. CBC Type and Screen Primary Care Provider Geovany Sevilla MD Advance Directive Health Care Proxy on File No Discharge Vitals Temperature: 98.5 DegF Height: 154.94 cm Pulse Rate: 82 bpm Weight: 52.73 kg Respiratory Rate: 16 br/min Body Mass Index: 21.96 kg/m2 Systolic Blood Pressure: 130 mm Hg Body surface area: 1.51 Diastolic Blood Pressure: 70 mm Hg ?? Oxygen Saturation: 100 % ?? Studies Pending All tests and labs ordered during this hospital stay have been completed unless listed below. Please discuss all pending results with your provider listed above in these instructions. ?? No incomplete studies found What to do next Instructions From Your Doctor Discharge Orders Scheduled Follow-Up Appointments Saturday 10:30 AM EDT ?? With: Rene HAIR, Carlos Watkins Where: [facility] [address] [place] [address]- Status: Pending Saturday 10:30 AM EDT ?? With: Anaya Corona Where: [facility] F[facility]ILITIES ASSISTANT Oncology [address] [place] [address] [place] [address]- Status: Pending 2022 2:00 PM EDT ?? Where: [facility] Status: Pending 2022 2:20 PM EDT ?? With: Ifeoma Recinos Where: [facility] Plastic Surgery [address] [place] [address]- Status: Pending 2022 10:20 AM EDT ?? With: John MILLAN, Ifeoma Quezada Where: [facility] Plastic Surgery [address] [place] [address]- Status: Pending You Need to Schedule the Following Appointments Follow Up with??Genet Mendoza MD When:??Within 1 to 2 weeks Where: [address] [facility] Gynecologic Oncology [place], [place] [id number]- Follow Up with??Genet Mendoza MD When:??Within 1 to 2 weeks Where: [facility] [place] [address]- Discharge Medications ORLANDO THAO :1955 Visit Date:05/13/2023 Medications: Please continue your medications until treatment is completed or stopped by your provider. Medications not listed below should be discontinued. Discuss any questions related to medications with your provider. What How Much When Instructions Next Dose Changed Alendronate (alendronate 70 mg oral tablet) 1 tab(s) Oral Every 7 days TAKE 1 TABLET BY MOUTH ONCE WEEKLY. ??TAKES ON SATURDAY'S ?? Unchanged bictegravir/ emtricitabine/ tenofovir (Biktarvy oral tablet) 1 tab(s) Oral Daily before lunch TAKE 1 TABLET BY MOUTH EVERY DAY ?? Unchanged Fluticasone Nasal (fluticasone 50 mcg/ inh nasal spray) Nares, Both Daily SPRAY 2 SPRAYS INTO EACH NOSTRIL DAILY ?? Unchanged Varenicline (varenicline 1mg tablet) 1 tab(s) Oral Twice a day Unchanged Zolpidem (zolpidem 10 mg oral tablet) 1 tab(s) Daily at Bedtime TAKE 1 TABLET BY MOUTH AT BEDTIME NEEDED INSOMNIA ?? Test Results Below is a partial list of the most recent Laboratory test results done prior to this discharge. You may have had other tests and procedures not included in this list. Please discuss all test resultswith your provider. CBC (05/13/2023) ???WBC - 4.1 k/mm3???RBC - 5.06 m/mm3???Hgb - 14.3 Gm/dL???Hct - 44.1 %???MCV - 87.2 femtoliters???MCH - 28.3 pg???MCHC - 32.4 g/dL???Platelet Count - 64 k/mm3???RDW-SD - 45.4 femtoliters???MPV - NOTMEASURED???Nucleated RBC (Automated) - 0.0 #/100 WBC'S???Abs. NRBC - 0.0 k/mm3 Type and Screen (05/13/2023) ???Blood Type - A Positive???Antibody Screen - Negative Allergies (NKA means No Known Allergies) NKA Problems Active Problems??(8) MUSHTAQ II (cervical intraepithelial neoplasia II)?? HIV positive?? Insomnia?? Thrombocytopenia?? Tobacco abuse?? Uses Slovak as primary spoken language?? PAULA II (vulvar intraepithelial neoplasia II)?? PAULA III (vulvar intraepithelial neoplasia III)?? Education Materials Below is the list of Educational Leaflet Providered with your Discharge Instructions. Anesthesia: General Anesthesia?? Valuables and Belongings I fully understand and agree that [facility] accepts no responsibility for all my personal [...] ?? Date for Pt to Sign Valuables/Belongings: 05/13/23 13:05:00 ?? Valuables & Belongings ?? Clothes Electronic devices Jewelry Monetary Items Personal devices Miscellaneous Medications (Valuables) Valuables at Bedside Pants, Shirt, Shoes, Undergarments Cell phone ? Valuables Sent Home ? Valuables Sent to Security ? Other Discharge Information ? Pulmonary Rehab Status?? Pulmonary Rehab Discharge Status?? Respiratory Rate: 16 br/min ? Common Emergency Awareness Tips IS [...] are strongly encouraged to quit. Please call [facility] at [phone] or [phone] ([phone]) or log in to [email or web address] for referrals to smoking cessation programs. ?? 364 Suicide & Crisis Lifeline is available 15/04 if you or someone you know needs to find a reason to keep living. By calling 077 you'll be connected to a skilled, trained counselor at a crisis center in your area. INPATIENT DISCHARGE INSTRUCTIONS SIGNATURE PAGE THAO ORLANDO Location:[facility] Registration Date and Time:05/13/2023 11:14 EDT Primary Care Physician: Geovany Sevilla MD, Attending Physician: Genet Mendoza MD, I ORLANDO THAO, have received the above patient education materials/instructions and have verbalized understanding. If ambulance or transport services are being used I further acknowledge being given a choice of service. ?? If you need to contact me, please call me at this number: . Patient/Anesthesiology Technologist Name: Patient/Anesthesiology Technologist Signature: Relationship to Patient: Witness Name/Signature: Date: * Gloria Ferguson RN: PERFORM Event Display: Patient Education Leaflets Authored Date: [id number] Anesthesia: General Anesthesia ?? Anestesia general Tiene programada ernesto fecha para ernesto cirug??a. Lolita la operaci??n, le administrar??n un medicamento anest??sico o anestesia. Leming es para que est?? c??modo y no sienta dolor. El anestesista usar?? anestesia general . Est??s vimos continuamente lolita el procedimiento por el proveedor de la anestesia. ??En qu?? consiste la anestesia general? Con la anestesia general, usted estar?? profundamente dormido. Esta se administra en el torrente sangu??denzel (anestesia intravenosa), en los pulmones (anestesia con gas) o de ambas formas. No sentir??nada lolita el procedimiento. No recordar?? nada despu??s. El anestesista vigila carmen estado durantetodo el procedimiento. Controla la frecuencia y el ritmo card??aco, la presi??n arterial, la respiraci??n y el nivel de ox??sergio en la debbie. ??? Anestesia intravenosa. La anestesia intravenosa se administra mediante ernesto v??a intravenosa (i. v.) en el brazo. Suele darse al inicio. Leming se hace para que ya est?? dormido cuando le administren la anestesia con gas. Algunos tipos de anestesia intravenosa alivian el dolor. Otros lo relajan. El proveedor de atenci??n m??dica decidir?? qu?? tipo de anestesia es m??s adecuado para carmen genoveva. ??? Anestesia con gas. La anestesia con gas se inhala y llega a los pulmones. Generalmente, se las utiliza para que permanezca dormido. Puede administrarse con ernesto mascarilla. O fantasma, puede administrarse por tubo que se coloca en la laringe o la tr??quea. o M??scara. El anestesista le colocar?? la mascarilla sobre la nariz y la boca, probablemente mientras usted todav??a est?? despierto. En esta, inhalar?? ox??sergio mientras le inician la anestesia intravenosa. Luego puede a??adirse anestesia con gas a addy??s de la mascarilla. o Tubo en la laringe o la tr??quea. Tensiha se colocar?? en la garganta ernesto vez que se haya dormido. ?? Instrumentos y medicamentos para la anestesia Es posible que tenga lo siguiente: ??? Anestesia intravenosa. Esta se administra directamente en eltorrente sangu??denzel mediante ernesto v??a intravenosa. ??? Anestesia con gas.??Esta se respira para quellegue a los pulmones. Luego, esta anestesia pasa al torrente sangu??denzel. ??? Ox??metro de pulso. Es un marc??o aparato en forma de pinza que se coloca en el extremo de un dedo. Se usa para medir elnivel de ox??sergio en la debbie. ??? Cables para electrocardiograma (electrodos).??Estos son marc??as almohadillas adhesivas que se colocan en el pecho. Estas registran la frecuencia y el ritmo card??aco. ??? Manguito de presi??n arterial o tensi??metro. Tenisha aparato sirve para leer la presi??n gabbi rial. ?? Riesgos y posibles complicaciones La anestesia general tiene ciertos riesgos. Por ejemplo: ??? Problemas respiratorios ??? Malestar estomacal (n??useas) y v??mitos ??? Dolor de garganta o ronquera (a menudo temporal) ??? Reacci??n al??rgica a la anestesia ??? Ritmo card??aco irregular (en casos muy poco frecuentes) ??? Paro card??aco (en casos muy poco frecuentes) ?? Seguridad de la anestesia ??? Siga todas las indicaciones que le den sobre no comer ni beber nada antes del procedimiento. ??? Informe a carmen proveedor de atenci??n m??dica acerca de los medicamentos que usa. Leming incluye los medicamentos con receta y los de venta sangita. Tambi??n mencione las vitaminas, hierbas medicinales y otros suplementos. Le preguntar??n cu??ndo los hansa?? por ??ltima vez. ??? P??ngase de acuerdo con un familiar o un amigo adulto para que lo lleve a carmen casa despu??s de la operaci??n. ??? Lolita las primeras 24??horas despu??s de la cirug??a, siga estas recomendaciones: o No conduzca ni use maquinaria pesada. o No tome decisiones importantes ni firme gavin??n documento legal. Si necesita julián decisiones importante o firmar documentos legales lolita las primeras 24??horas despu??s de la cirug??a, pida a un familiar o a carmen c??nyuge que lo represente. o Evite el consumode alcohol. o De ser posible, pida a un adulto responsable que se quede con usted.??Esta persona puede vigilar cualquier problema que se presente??y lo ayudar?? a permanecer seguro. ?? Last Reviewed Date: 2021 ?? 1025-7210 [employer]. Todos los derechos reservados. Esta informaci??n no pretende sustituir la atenci??n m??dica profesional. S??lo carmen m??dico puede diagnosticar y tratar un problema de henny. ?? Patient Care team information Care Team Personnel Name: Geovany Sevilla MD Position: Reference Physician Member Role: PCP Address: Address: [address] [place] [address] [place] Care Team Related Persons Name: EFFIE ALBRECHT Name: THAD ROSE Address: [address] [address]
--- OUTSIDE RECORDS SUMMARY | 2024-04-02 10:59 | XMS_ITS | Continuity of Care Document ---
Author Organization [facility] Richard sandy Address [address] [place] [address] [address] [place] [address]- Care Team Providers Care Construction Accountant Name Role Phone Po Geovany PITTMAN Primary Care Physician Encounter [facility] Date(s): 12/09/23 - 01/08/[address] [address] Allergies, Adverse Reactions, Alerts No [...] positive Confirmed Active Insomnia Confirmed Active Uses Bolivian as primary spoken language Confirmed Active Thrombocytopenia [...] MRI Safety Implantable Status Assigning Authority Unknown [id number] Unknown Unknown 10/24/27 Unknown Unknown Active Unknown Patient Care team information Care Team Personnel Name: Geovany Sevilla MD Position: Reference Physician Member Role: PCP Address: Address: [address] [place] [id number] Name: Roro Barros LPN Position: S RN Member Role: Primary Care Nurse Care Team Related Persons Name: ROBERT ALBRECHT Name: BRANDY ALBRECHT Name: THAD ROSE Address: home [address] [place] [address]
--- OUTSIDE RECORDS SUMMARY | 2024-04-02 10:59 | XMS_ITS | Continuity of Care Document ---
Author Organization [facility] Address [address] [place] [address]- Care Team Providers Care Tongue Carrier Name Role Phone Po Geovany PITTMAN Primary Care Physician [phone] Encounter [facility] Date(s): 07/26/23 - 08/25/23 [facility] [address] [place] [id number] Attending Physician: Klarissa Hernandez Admitting Physician: Klarissa [...] each, 0 Refills, Maintenance, 06/07/23 10:46:00 EDT, [facility]/pharmacy #[id number], Partial fill upon patient request if [...] positive Confirmed Active Insomnia Confirmed Active Uses Belizean as primary spoken language Confirmed Active Thrombocytopenia [...] MRI Safety Implantable Status Assigning Authority Unknown [id number] Unknown Unknown 10/24/27 Unknown Unknown Active Unknown Patient Care team information Care Team Personnel Name: Geovany Sevilla MD Position: Reference Physician Member Role: PCP Address: Address: [address] [place] [address]- Name: Roro Barros LPN Position: S RN Member Role: Primary Care Nurse Care Team Related Persons Name: ROBERT ALBRECHT Name: BRANDY ALBRECHT Name: THAD ROSE Address: home [address] [place] [id number]
--- OUTSIDE RECORDS SUMMARY | 2024-04-02 10:59 | XMS_ITS | Continuity of Care Document ---
Author Organization [facility] Richard sandy Address [address] [place] [address] [address] [place] [address]- Care Team Providers Care Gasoline Pump Mechanic Name Role Phone Po Geovany PITTMAN Primary Care Physician Encounter [facility] Date(s): 07/04/23 - 07/11/23 [facility] [address] [place] [address]- Attending Physician: Ifeoma Recinos Allergies, Adverse Reactions, [...] 11:40:00 EST, 07/04/23 11:40:00 EDT, Ointment, [id number], Partial fill upon patient request if the prescription isfor a schedule II opioid drug., 1 application Topic... Start Date: 07/04/23 Stop Date: 08/05/23 Status: Ordered Saline Mist 0.65% nasal spray 2 sprays, Nares, Both, 4 times a day, in each nostril, # 1 each, 0 Refills, Maintenance, 06/07/23 10:46:00 EDT, [facility]/pharmacy #[id number], Partial fill upon patient [...] 06/07/23 7:59:00 EDT, [id number] Partial fill upon patient request if... 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 Sex Implantable Device List Procedure Provider Procedure Date Device Type Site Reconstruction Mohs Stage 2 Ashkan PITTMAN, Valentin Kirk 06/06/23 Unknown Nose Device Identifier Serial Number Lot or Batch Number Manufacturing Date Expiration Date Distinct Identification Code MRI Safety Implantable Status Assigning Authority Unknown [id number] Unknown Unknown 10/24/27 Unknown Unknown Active Unknown Patient Care team information Care Team Personnel Name: Geovany Sevilla MD Position: Reference Physician Member Role: PCP Address: Address: [address] [place] [id number] Name: Roro Barros LPN Position: S RN Member Role: Primary Care Nurse Care Team Related Persons Name: EFFIE ALBRECHT Name: THAD ROSE Address: home [address] [place] [address]
--- OUTSIDE RECORDS SUMMARY | 2024-04-02 10:59 | XMS_ITS | Continuity of Care Document ---
Author Organization [facility] ter Address [address] [place] [address]- Care Team Providers Care Metal Sorter Name Role Phone Po Geovany PITTMAN Primary Care Physician Encounter 03/29/24 - 03/30/[address] [id number] Attending Physician: Not on Staff, Attending MD [...] NOSTRIL DAILY Start Date: 03/22/23 Status: Ordered gabapentin 100 mg oral capsule 100 mg, 1, capsule, By Mouth, 3 times a day, # 90 capsule, Refills 5, Tot. Refills 5, Maintenance, 03/25/24 14:27:00 EDT, Route to Pharmacy Electronically, [facility]/pharmacy #[id number], Partial fill upon patient request if the prescription is for a schedule II... Start Date: 03/25/24 Status: Ordered oxyCODONE 5 mg oral tablet 5 mg, 1, tablet, By Mouth, Every 6 hours, PRN, # 30 tablet, Refills 0, Tot. Refills 0, Maintenance,as needed for pain, 03/25/24 14:27:00 EDT, Route to Pharmacy Electronically, [facility]/pharmacy #[id number], Partial fill upon patient request if the prescription... Start Date: 03/25/24 Status: Ordered Saline Mist 0.65% nasal spray 2 sprays, Nares, Both, 4 times a day, in each nostril, # 1 each, 0 Refills, Maintenance, 06/07/23 10:46:00 EDT, [facility]/pharmacy #[id number], Partial fill upon patient request [...] Exam Date Time Procedure Performing Provider Status 03/29/24 10:[address] PET AI Whole Body Auth (Verified) Notes: (CT PET AI Whole Body) Reason For Exam: Initial Staging C44.329 - Squamous Cell Carcinoma Of Skin Of Other Parts Of Face;Initial Staging C44.329 - Squamous Cell Carcinoma Of Skin Of Other Parts Of Face RESULT: CT PET AI Whole Body [facility] PET/CT Imaging VISIT NUMBER :[id number] Patient Name: Orlando Thao Date of : 1955 Date of Exam: 03-29-2024 Referring Physician: [facility] [address] [place] [address] Exam: PT SUBTLE Whole Body CPT 85978 Room Description: Jg Jefferson Pt4 EXAM: PET-CT History: 68-year-old female with 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 Comparison: None. Correlation made with MRI of the orbits, face, and neck 02/27/2024. PET technique: The study was performed after the intravenous injection of 12.39 mCi F-18-FDG. Positron emission tomography and CT were performed from the base of the brain to the midthighs with axial, coronal, sagittal, and 3-D reformats. The blood glucose at the time of injection was 107 mg/dL. Imaging was performed 55 minutes after injection. SUV was normalized by body weight. Findings: Mediastinal blood pool SUV max and mean: 2.3 Max, 2 mean Liver SUV max and mean: 3 Max, 2.5 mean Head/neck: * Normal physiologic uptake throughout the visualized brain * 0.9 x 1 cm mildly FDG avid lesion arising from the soft tissue of the anterior nose extending into the nasal passage with an SUV max of 3.4 (image 43) * 1.4 x 2.2 cm FDG avid lesion in the soft tissue of the left infraorbital and malar soft tissues of the face with an SUV max of 4.4 (image 44) * Mildly enlarged bilateral palatine tonsils with asymmetric FDG uptake, right greater than left. The right tonsil has has an SUV max of 6.2 and the left has an SUV max of 4 * Focal FDG uptake in the vocal cords, likely physiologic Chest: * Fine detail of the lungs is obscured by motion artifact * No obvious FDG avid pulmonary nodule * Mild bibasilar atelectasis * Heart is normal in size Abdomen/pelvis: * Normal physiologic uptake in the liver, spleen, pancreas, adrenals, kidneys, ureters, and bladder * Homogeneous uptake throughout the small and large bowel, likely physiologic * No FDG avid nodules or peritoneal implants Osseous/cutaneous structures: * No osseous FDG avid lesions to suggest bony metastases Impression: Mildly FDG avid lesion arising from the soft tissues of the anterior nose extending into the nasal passage measuring up to 1 cm. Consistent with primary disease site. FDG avid soft tissue lesion in the left infraorbital and malar soft tissue measuring up to 2.2 cm. Consistent with disease extension Asymmetric FDG uptake in the bilateral palatine tonsils, right greater than left. Findings may be physiologic or may represent inflammatory/infectious process or relation with physical exam is recommended. I, Morales Brown MD, have reviewed the images and report and concur with the resident, Theo Chriss, findings. Electronically Signed By: Morales Brown MD Dictated By: Not on Staff , IONA PITTMAN Dictated Date/Time: 03/30/24 8:49 pm Reviewed By: Not on Staff , IONA PITTMAN Signed By: Not on Staff , IONA PITTMAN Signed Date/Time: 03/30/24 8:49 pm Transcribed By: TS Transcribed Date/Time: 03/30/24 8:49 pm Social History Social History Type Response Tobacco Use: pt quit smoking 18 days ago, wearing a nicotene patch . Sex Implantable Device List Procedure Provider Procedure Date Device Type Site Reconstruction Mohs Stage 2 Valentin Luther MD 06/06/23 Unknown Nose Device Identifier Serial Number Lot or Batch Number Manufacturing Date Expiration Date Distinct Identification Code MRI Safety Implantable Status Assigning Authority Unknown [id number] Unknown Unknown 10/24/27 Unknown Unknown Active Unknown Patient Care team information Care Team Personnel Name: Geovany Sevilla MD Position: Reference Physician Member Role: PCP Address: Address: [address] [place] [id number] Name: Roro Barros LPN Position: S RN Member Role: Primary Care Nurse Care Team Related Persons Name: ROBERT ALBRECHT Name: BRANDY ALBRECHT Name: THAD ROSE Address: home [address] [place] [address]
--- OUTSIDE RECORDS SUMMARY | 2024-04-02 10:59 | XMS_ITS | Continuity of Care Document ---
Author Organization [facility] Address [address] [place] [address]- Care Team Providers Care District Plant Supervisor Name Role Phone Po Geovany PITTMAN Primary Care Physician Encounter 06/08/23 - 08/02/23 [facility] [address] [place] [address]- Discharge Disposition: CLIENT NO LONGER REQUIRES SKILLED CARE Allergies, Adverse Reactions, Alerts No Known Allergies [...] 11:40:00 EST, 07/04/23 11:40:00 EDT, [facility], [id number], Partial fill upon patient request if the prescription isfor a schedule II opioid drug., 1 application Topic... Start Date: 07/04/23 Stop Date: 08/05/23 Status: Ordered Saline Mist 0.65% nasal spray 2 sprays, Nares, Both, 4 times a day, in each nostril, # 1 each, 0 Refills, Maintenance, 06/07/23 10:46:00 EDT, [facility]/pharmacy #[id number], Partial fill upon patient request if the [...] MRI Safety Implantable Status Assigning Authority Unknown [id number] Unknown Unknown 10/24/27 Unknown Unknown Active Unknown Patient Care team information Care Team Personnel Name: Geovany Sevilla MD Position: Reference Physician Member Role: PCP Address: Address: [address] [place] [address]- Name: Roro Barros LPN Position: S RN Member Role: Primary Care Nurse Care Team Related Persons Name: ROBERT ALBRECHT Name: BRANDY ALBRECHT Name: THAD ROSE Address: home [address] [place] [address]
--- OUTSIDE RECORDS SUMMARY | 2024-04-02 10:59 | XMS_ITS | Continuity of Care Document ---
Author Organization [facility] ROTOR CASTING MACHINE OPERATOR Oncolog y Address [address] [place] [address]- Care Team Providers Care Tire Builder Operator Name Role Phone Po Geovany PITTMAN Primary Care Physician [phone] Encounter [facility] Date(s): 04/02/22 - 05/11/22 [facility] ROTOR CASTING MACHINE OPERATOR Oncology [address] [place] [id number] Attending Physician: Alisha Nicolas MD Admitting Physician: Alisha Nicolas MD Referring Physician: Geo Tariq MD Allergies, Adverse Reactions, Alerts No Known Medication Allergies Problem List Condition Effective Dates Status Health Status Inform ant 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
[2024-04-02 11:05] VITALS: BP 118/70; BMI 20.1
--- NOTE | 2024-04-02 11:05 | MHC.OFFVIS ---
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 No complaints. Last Pap/HPV was in 02/12 ascus/HPV negative squamous colpo biopsy/ECC was negative Last Mammogram was in 09/14 was BI-RADS 1 Last Colonoscopy was in 11/10, the recommendation was to repeat in 10 years, according to the patient Last DEXA scan was done in 09/14 showed T-score of-3.8, the patient was started on alendronate and calcium with vitamin-D 1200 g/800 IU q.d. The patient had high-grade PAULA, was referred to senior physician Oncology at [facility] underwent wide local excision, pathology came back positive margins was prescribed imiquimod and the plan was for the patient to follow up in 4 weeks, but the patient was lost to be followed up and did not reschedule a follow-up appointment [facility] Medical History (Updated 04/02/24 @ 11:49 by Geo Tariq MD) Vulvar high-grade squamous intraepithelial lesion (HGSIL) Cough Well woman exam Skin cancer Hx LEEP (loop electrosurgical excision procedure), cervix, Tobacco abuse Osteoporosis MUSHTAQ II (cervical intraepithelial neoplasia II) Hypertriglyceridemia Insomnia Carpal tunnel syndrome, left HIV (human immunodeficiency virus infection) Surgical History Hx of colonoscopy History of orthopedic surgery History of surgery History of tubal ligation Family History Father Lung cancer Mother Colon cancer CVD (cardiovascular disease) Stroke Maternal Grandmother Uterine cancer Sister Breast cancer Social History Household Members: Spouse and Children Housing: Apartment Are you a primary primary care sales representative to a significant other at home: No Do you presently have visiting nurse or other home services: No Alcohol intake: never Comment: medicated in pacu Patient Tobacco Use Status: Former Tobacco user Tobacco use type: Cigarette Cigarettes Per Day: 3 Years Smoked: 20 stopped mid February 2023 e-Cigarette/Vaping Use: Never Used Second Hand Smoke Exposure: No service: No Current occupational status: disabled Cognitive needs: No Hearing needs: No Vision needs: Yes Female Reproductive History Menstrual Age of Menarche: 13 Menopause type: natural Date of last pap smear: 01/25/23 History of abnormal pap smear: Yes (Ascus) Date of Mammogram: 08/30/23 Review of Systems Const All systems reviewed & are unremarkable except as noted in HPI and below Card Reports as per HPI Resp Reports as per HPI GI Reports as per HPI and Reports no additional complaints Reports as per HPI Physical Exam Vital Signs: Last Vital Signs BP 118/70 04/02/24 11:05 BMI result Body Mass Index 20.1 Const General: cooperative, healthy appearing and comfortable Chest Chest palpation & inspection: normal inspection of the chest and normal palpation of entire chest wall Breast/axilla inspection: normal inspection of the breasts and normal inspection of the axillae Breast/axilla palpation: normal palpation of the breasts, normal palpation of the axillae and no axillary lymphadenopathy Resp Effort & Inspection: normal respiratory effort Auscultation: clear to auscultation bilaterally Percussion: percussion normal Cardio Palpation: normal PMI Rate: regular rate Rhythm: regular rhythm Heart sounds: no murmurs and no rubs Peripheral pulses: Peripheral pulses 2+ throughout GI Inspection: Yes normal to inspection Palpation (GI): Soft to palpation, nontender, no guarding, not rigid and No hepatosplenomegaly present Percussion: Yes normal to percussion Auscultation: normal bowel sounds Rectal Exam - Female: deferred General: Yes bladder normal to palpation External Female Exam: lesion (Procedure fourchette leukoplakia and right labia majora dark lesion 0.5 cm) Speculum Exam - Vagina: normal appearance of the vagina, normal palpation, normal vaginal discharge and not erythematous Speculum Exam - Cervix: normal appearance of the cervix and normal palpation Bimanual exam- vagina & uterus: normal bimanual exam, normal palpation, uterine size normal, bladder normal to palpation, consistency normal and normal palpation Bimanual Exam- Adnexa, other: normal adnexae, no masses and no tenderness Office Procedures 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 Preop dx: R labia majora dark lesion, post fourchette leukoplakia Op: R labia majora dark lesion, post fourchette leukoplakia biopsies Post op: Same Anesthesia: Lidocaine 1% 3cc used Procedure: Using betadine the area was scrubbed and draped in the usual manner. 3 cc of lidocaine was used for anesthesia at R labia majora dark lesions, post fourchette leukoplakia areas ; using punch biopsy forceps and pickup the R labia majora dark lesion & post fourchette leukoplakia were biopsied. Pressure was used for hemostasis. The patient tolerated the procedure well. Discharge Instructions: The patient was instructed to schedule an appointment in 2 weeks for follow-up and to call if temp>100.4, area of the biopsy redness or pain, nausea/vomiting. This note was generated with a voice recognition program. Some errors may have been overlooked during the review of this note. Sometimes these errors may affect the content or meaning of a given sentence. 27515-Wxtqon of Vulva/Perineum 73904-Lqdrmv of Vulva/Perineum, additional site Procedure code (CPT) selection complete Assessment & Plan Assessment & Plan (1) Well woman exam: Code(s): Z01.419 - Encounter for gynecological examination (general) (routine) without abnormal findings Category: Medical Plan: Co testing done since the patient has Pap smear last year was ascus/HPV negative, colpo biopsy/ECC were negative Counseled the patient about the recommended dietary allowance of 1200 mg of Calcium & 800 IU of vitamin D. Instructions given the patient to schedule next screening Mammogram in 09/14. The patient was instructed to perform monthly self-breast exams and to schedule an annual exam in a year; All questions answered and the patient verbalized understanding. (2) PAULA III (vulvar intraepithelial neoplasia III): Comment: Status post wide local excision in 9/23 at [facility] senior physician Oncology with positive margins Code(s): D07.1 - Carcinoma in situ of vulva Category: Medical Plan: Discussed with the patient the importance of close follow-up with senior physician Oncology with a history of MUSHTAQ 3 status post wide local excision, will schedule a follow-up appointment with Dr. Salgado in senior physician Oncology at [facility] within 2 weeks. Appointment scheduled with Dr. Mendoza on 04/21 at 11:00, the patient is aware (3) Vulvar lesion: Comment: Right labia majora dark lesion 0.5 cm Posterior fourchette leukoplakia Code(s): N90.89 - Other specified noninflammatory disorders of vulva and perineum Category: Medical Plan: Discussed with the patient the finding on pelvic exam showing a right labia majora dark lesion 0.5 cm, and the posterior fourchette leukoplakia at the site of a previous PAULA 3 status post wide local excision with positive margins, recommended vulvar biopsy from both lesions, vulvar biopsies done, see procedure note. Orders: Orders AMB SECURITY SALES MANAGER Biopsy Today N90.89 - Other specified noninflammatory disorders of vulva and perineum PAP Smear Today D07.1 - Carcinoma in situ of vulva, R87.610 - Atypical squamous cells of undetermined significance on cytologic smear of cervix (ASC-US) Surgical Today D07.1 - Carcinoma in situ of vulva, R87.610 - Atypical squamous cells of undetermined significance on cytologic smear of cervix (ASC-US) Coding Level of Care Code Est Pt Prev Care >65y(76856) Diagnoses Well woman exam Z01.419 PAULA III (vulvar intraepithelial neoplasia III) D07.1 Vulvar lesion N90.89 CPT Codes SECURITY SALES MANAGER Biopsy - CPT: 86923-Utnmrk of Vulva/Perineum ([id number]) SECURITY SALES MANAGER Biopsy - CPT: 47951-Gxtuhf of Vulva/Perineum, additional site ([id number]) Comment Vulvar biopsy x2 done
== END 2024-04-02 11:51 | disposition home or self-care (01) ==
LOC: HO.HWS 10:56
PROVIDERS: PCP Internal Medicine; Visit Provider Obstetrics & Gynecology
DX: Z01.419 Encounter for gynecological examination (general) (routine) without abnormal findings (principal); D07.1 Carcinoma in situ of vulva; N90.89 Other specified noninflammatory disorders of vulva and perineum
CPT/HCPCS: 56605; 56606; 99397

== ENCOUNTER 2024-04-02 10:56 | Outpatient (REF) | payer OTHER, SELFPAY ==
[2024-04-07 00:33] LABS: HPV mRNA E6/E7 Not Detected (Not Detected)
== END 2024-04-02 10:57 | disposition home or self-care (01) ==
LOC: HO.LNP 10:56
PROVIDERS: PCP Internal Medicine; Visit Provider Obstetrics & Gynecology
DX: Z01.411 Encounter for gynecological examination (general) (routine) with abnormal findings (principal); Z11.51 Encounter for screening for human papillomavirus (HPV); R87.610 Atypical squamous cells of undetermined significance on cytologic smear of cervix (ASC-US); D07.1 Carcinoma in situ of vulva
CPT/HCPCS: 56605; 56606; 87624; 88175; 88305; 88312; 88342; 88360

== ENCOUNTER 2024-04-30 09:04 | Outpatient (AMB) | payer OTHER, SELFPAY ==
[2024-04-30 09:06] VITALS: BMI 19.8
--- NOTE | 2024-04-30 09:06 | MHC.OFFVIS ---
Vital Signs 04/30/24 09:06 Height 5 ft 2 in Weight 108 lb 0.424 oz BMI 19.8 Intake Visit Reasons: vulva Boipsy Senior Java Software Developer Required: Yes Senior Java Software Developer Language: Energy Project Manager Services: Senior Java Software Developer Present (in person) Senior Java Software Developer Name: Chloe ZURITA Information Interpreted: non-clinical & clinical Wood Model Maker: Wood Model Maker Present (Chloe ZURITA) Accompanied by: Self / Same As Patient Allergies No Known Allergies [No Known Allergies*] Allergy (Verified 04/30/24 09:07) Post menopausal: Yes HPI Comments Details: Presenting post vulvar biopsy for follow-up. Doing well with no complaints. Pathology showed the following: A. Vulva, right labia majora dark lesion, biopsy: Hyperkeratotic squamous intraepithelial lesion of indeterminant grade (see comment). B. Vulva, posterior fourchette, biopsy: Benign skin with minimal dermal chronic inflammation; negative for dysplasia and fungi. Comment: (A): The lesion is fragmented with crush artifact and the grade of dysplasia cannot be determined with certainty. Close follow-up is warranted COUNT INCLUDES [facility] Medical History Vulvar high-grade squamous intraepithelial lesion (HGSIL) Cough Well woman exam Skin cancer Hx LEEP (loop electrosurgical excision procedure), cervix, Tobacco abuse Osteoporosis MUSHTAQ II (cervical intraepithelial neoplasia II) Hypertriglyceridemia Insomnia Carpal tunnel syndrome, left HIV (human immunodeficiency virus infection) Surgical History Hx of colonoscopy History of orthopedic surgery History of surgery History of tubal ligation Family History Father Lung cancer Mother Colon cancer CVD (cardiovascular disease) Stroke Maternal Grandmother Uterine cancer Sister Breast cancer Social History Household Members: Spouse and Children Housing: Apartment Are you a primary customer care specialist to a significant other at home: No Do you presently have visiting nurse or other home services: No Alcohol intake: never Comment: medicated in pacu Patient Tobacco Use Status: Former Tobacco user Tobacco use type: Cigarette Cigarettes Per Day: 3 Years Smoked: 20 stopped mid February 2023 e-Cigarette/Vaping Use: Never Used Second Hand Smoke Exposure: No service: No Current occupational status: disabled Cognitive needs: No Hearing needs: No Vision needs: Yes Female Reproductive History Menstrual Age of Menarche: 13 Review of Systems Const All systems reviewed & are unremarkable except as noted in HPI and below Reports as per HPI and Reports no additional complaints GI Reports no additional complaints Reports no additional complaints Physical Exam Vital Signs: BMI result Body Mass Index 19.8 Assessment & Plan Assessment & Plan (1) Vulvar lesion: Comment: 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 The patient would like to schedule it for next week. All questions answered, the patient verbalized understanding especially the significance of her clinical situation and the urgency and agreed with the plan Coding Level of Care Code Est Pt Level 3 (74065) Diagnoses Vulvar lesion N90.89
== END 2024-04-30 12:32 | disposition home or self-care (01) ==
LOC: HO.HWS 09:04
PROVIDERS: PCP Internal Medicine; Visit Provider Obstetrics & Gynecology
DX: N90.89 Other specified noninflammatory disorders of vulva and perineum (principal)
CPT/HCPCS: 99213

== ENCOUNTER → 2024-04-30 09:04 | Outpatient (BNVA) | payer OTHER, SELFPAY | PROVIDERS: PCP Internal Medicine; Visit Provider Obstetrics & Gynecology | DX: N90.89 Other specified noninflammatory disorders of vulva and perineum (principal) | CPT/HCPCS: 99212 ==

== ENCOUNTER 2024-05-04 10:51 | Outpatient (AMB) | payer OTHER, SELFPAY ==
[2024-05-04 11:06] VITALS: BMI 20.1
--- NOTE | 2024-05-04 11:06 | A.OFFVIS_ITS ---
Vital Signs 05/04/24 11:06 Height 5 ft 2 in Weight 110 lb BMI 20.1 Intake Visit Reasons: vulva biopsy Market Research Analyst Required: Yes Market Research Analyst Language: Electric Meter Inspector Services: Market Research Analyst Present (in person) Market Research Analyst Name: Chloe ZURITA Information Interpreted: non-clinical & clinical Canal Boat Operator: Canal Boat Operator Present (Chloe ZURITA) Accompanied by: Self / Same As Patient Allergies No Known Allergies [No Known Allergies*] Allergy (Verified 05/04/24 11:08) Post menopausal: Yes HPI Comments Details: Presenting for right labial lesion. [facility] Medical History Vulvar high-grade squamous intraepithelial lesion (HGSIL) Cough Well woman exam Skin cancer Hx LEEP (loop electrosurgical excision procedure), cervix, Tobacco abuse Osteoporosis MUSHTAQ II (cervical intraepithelial neoplasia II) Hypertriglyceridemia Insomnia Carpal tunnel syndrome, left HIV (human immunodeficiency virus infection) Surgical History Hx of colonoscopy History of orthopedic surgery History of surgery History of tubal ligation Family History Father Lung cancer Mother Colon cancer CVD (cardiovascular disease) Stroke Maternal Grandmother Uterine cancer Sister Breast cancer Social History Household Members: Spouse and Children Housing: Apartment Are you a primary rental boats caretaker to a significant other at home: No Do you presently have visiting nurse or other home services: No Alcohol intake: never Comment: medicated in pacu Patient Tobacco Use Status: Former Tobacco user Tobacco use type: Cigarette Cigarettes Per Day: 3 Years Smoked: 20 stopped mid February 2023 e-Cigarette/Vaping Use: Never Used Second Hand Smoke Exposure: No service: No Current occupational status: disabled Cognitive needs: No Hearing needs: No Vision needs: Yes Female Reproductive History Menstrual Age of Menarche: 13 Physical Exam Vital Signs: BMI result Body Mass Index 20.1 Office Procedures ELECTROLYTIC DE SCALER 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 Preop dx: Right labia dark lesion Op: Right tibial dark lesion excision Post op: Same Anesthesia: Lidocaine 1% 3cc used Procedure: Using betadine the area was scrubbed and draped in the usual manner. 3 cc of lidocaine was used for anesthesia at the right labor dark lesion area ; using scissors and pickup the left vulvar lesion was excised, Vicryl was used to approximate the edges. Pressure was used for hemostasis. The patient tolerated the procedure well. Discharge Instructions: The patient was instructed to schedule an appointment in 2 weeks for follow-up and to call if temp>100.4, area of the biopsy redness or pain, nausea/vomiting. This note was generated with a voice recognition program. Some errors may have been overlooked during the review of this note. Sometimes these errors may affect the content or meaning of a given sentence. 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
== END 2024-05-04 11:41 | disposition home or self-care (01) ==
LOC: HO.HWS 10:51
PROVIDERS: PCP Internal Medicine; Visit Provider Obstetrics & Gynecology
DX: N90.89 Other specified noninflammatory disorders of vulva and perineum (principal)
CPT/HCPCS: 56605

== ENCOUNTER 2024-05-04 10:51 | Outpatient (REF) | payer OTHER, SELFPAY | END 2024-05-04 10:52 | disposition home or self-care (01) | LOC: HO.LNP 10:51 | PROVIDERS: PCP Internal Medicine; Visit Provider Obstetrics & Gynecology | DX: N90.1 Moderate vulvar dysplasia (principal); B20 Human immunodeficiency virus [HIV] disease; N90.89 Other specified noninflammatory disorders of vulva and perineum; F17.210 Nicotine dependence, cigarettes, uncomplicated; Z79.899 Other long term (current) drug therapy | CPT/HCPCS: 56605; 88305; 88342; 88360 ==

== ENCOUNTER 2024-05-04 14:33 | Outpatient (AMB) | payer OTHER, SELFPAY ==
[2024-05-04 14:38] VITALS: BP 136/80; PULSE 72; O2SAT 97; BMI 20.1
--- NOTE | 2024-05-04 14:38 | MHC.PC.OV ---
Vital Signs 05/04/24 14:38 Height 5 ft 2 in Weight 110 lb BMI 20.1 BP 136/80 Blood Pressure Location Lt brachial Position Sitting Pulse 72 Pulse Source Pulse Oximeter Pulse Oximetry (%) 97 Oxygen Delivery Method Room Air Intake Visit Reasons: Discuss Cancer Treatment, Form for window tint Allergies No Known Allergies [No Known Allergies*] Allergy (Verified 05/04/24 14:39) Medication List - Last Reconciled 05/04/24 by Geovany Sevilla MD alendronate 70 mg PO QWEEK oavlvxrca-iqcwglmu-zpewgly ala 50-200-25 mg (Biktarvy) 1 tab PO DAILY 30 days [BOOST VANILLA As directed] citalopram 1 tab PO DAILY fluticasone propionate 50 mcg/actuation 2 sprays intranasal DAILY varenicline (Chantix Starting Month Box) PO PER PKG DIR varenicline (Chantix Continuing Month Box) 1 mg PO BID zolpidem 10 mg PO BEDTIME PRN 30 days Tobacco use date assessed: 05/04/24 Fall risk assessment: No Falls in past year Last assessed Fall Risk: 05/04/24 Dental Screening Dental Screen Date: 05/04/24 Did you have a dental visit in the last 12 months?: Yes Did you have a dental problem in the last 6 months where you did not have access to dental care?: No Was dental information given to patient?: Patient has dentist HPI Discuss Cancer Treatment, Form for window tint HPI Details 68-year-old female smoker with a history of HIV having 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 Last seen in 07/12/2023. Patient is up-to-date with colonoscopy October 2017 10 years, due for mammogram due for bone density. Patient continues to follow-up with gynecology having excisional biopsy. 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 You mass biopsy showed well-differentiated invasive squamous cell carcinoma. patient underwent Mohs surgery of the brow in nose in 06/12/2023 noted have perineural invasion margins positive. The left brow lesion though was basal cell carcinoma patient did undergo radiation therapy also from October to 12/11/2023 patient was advised systemic chemotherapy (immunotherapy pembrolizumab) and not surgery. Prescribed gabapentin for pain. Patient does have a PET scan scheduled. Meanwhile patient follows up with Infectious Disease much improved viral load and continuing to monitor. On Biktarvy. As for the osteoporosis the gynecology has referred her to Rheumatology. PAtient has been advised to avoid sun exposure. brings in tinted car. [facility] Medical History Vulvar high-grade squamous intraepithelial lesion (HGSIL) Cough Well woman exam Skin cancer Hx LEEP (loop electrosurgical excision procedure), cervix, Tobacco abuse Osteoporosis MUSHTAQ II (cervical intraepithelial neoplasia II) Hypertriglyceridemia Insomnia Carpal tunnel syndrome, left HIV (human immunodeficiency virus infection) Surgical History Hx of colonoscopy History of orthopedic surgery History of surgery History of tubal ligation Family History Father Lung cancer Mother Colon cancer CVD (cardiovascular disease) Stroke Maternal Grandmother Uterine cancer Sister Breast cancer Social History Household Members: Spouse and Children Housing: Apartment Are you a primary adult daycare coordinator to a significant other at home: No Do you presently have visiting nurse or other home services: No Alcohol intake: never Comment: medicated in pacu Patient Tobacco Use Status: Former Tobacco user Tobacco use type: Cigarette Cigarettes Per Day: 3 Years Smoked: 20 stopped mid February 2023 Packs per year/per ci.00 e-Cigarette/Vaping Use: Never Used Second Hand Smoke Exposure: No service: No Current occupational status: disabled Cognitive needs: No Hearing needs: No Vision needs: Yes Female Reproductive History Menstrual Age of Menarche: 13 Questionnaire PHQ-9 Over the last 2 weeks, how often have you been bothered by any of the following problems? 1. Little interest or pleasure in doing things: not at all 2. Feeling down, depressed, or hopeless: not at all 3. Trouble falling or staying asleep, or sleeping too much: not at all 4. Feeling tired or having little energy: not at all 5. Poor appetite or overeating: not at all 6. Feeling bad about yourself - or that you are a failure or have let yourself or your family down: not at all 7. Trouble concentrating on things, such as reading the newspaper or watching television: not at all 8. Moving or speaking so slowly that other people could have noticed. Or the opposite - being so fidgety or restless that you have been moving around a lot more than usual: not at all 9. Thoughts that you would be better off or of hurting yourself in some way: not at all Total score: 0 Depression Screening Interpretation: Negative Depression Screening Done: Yes Source: Developed by Drs. Amilcar Lr, Tess Coronado, Moises Winslow and colleagues, with an educational sarah from [employer]. Thrive Questionnaire Date Thrive assessed: 05/04/24 I am a: Patient What is your living situation today?: I have a steady place to live Within the past 12 months, did the food you bought not last and you didn't have the money to get more?: Never true Within the past 12 months, did you worry whether your food would run out before you got money to buy more?: Never true Do you have trouble paying for medicines?: No Do you have trouble getting transportation to medical appointments?: No Do you have trouble paying your heating and electricity bill?: No Do you have trouble taking care of your child, family member or friend?: No Do you have trouble with day-to-day activities such as bathing, preparing meals, shopping, managing finances, etc.?: No Are you currently unemployed and looking for a job?: No Are you interested in more education?: No Currently or been in a relationship where the following occur: No concerns reported THRIVE Score: 0 AUDIT C Alcohol Use Questionnaire (AUDIT-C) 1. How often do you have a drink containing alcohol?: Never 3. How often do you have six or more drinks on one occasion?: Never Total Score: 0 Score Reviewed/Action Taken: Yes ERAN-7 AMB Questionnaire ERAN-7 Date ERAN - 7 assessed: 05/04/24 Feeling nervous, anxious, or on edge: 0 = Not at all Not being able to stop or control worryin = Not at all Worrying too much about different things: 0 = Not at all Trouble relaxin = Not at all Being so restless that it is hard to sit still: 0 = Not at all Becoming easily annoyed or irritable: 0 = Not at all Feeling afraid as if something awful might happen: 0 = Not at all Total ERAN-7 score (0-4 normal; 5-9 mild; 10-14 moderate; 15-21 severe): 0 Source: Developed by Drs. Amilcar Lr, Tess Coronado, Moises Winslow and colleagues, with an educational sarah from [employer]. Physical exam (Primary Care) Vital Signs: Last Vital Signs Pulse 72 05/04/24 14:38 BP 136/80 05/04/24 14:38 Pulse Ox 97 05/04/24 14:38 Oxygen Delivery Method Room Air 05/04/24 14:38 BMI result Body Mass Index 20.1 Tobacco/Smoking Status: Tobacco use Status Tobacco use date assessed 05/04/24 05/04/24 14:46 Patient Tobacco Use Status Former Tobacco user 05/04/24 14:46 Tobacco use type Cigarette 05/04/24 14:46 e-Cigarette/Vaping Use Never Used 05/04/24 14:46 PHQ-9: PHQ-9 Score PHQ-9: Total score 0 05/04/24 14:46 Depression Screening Interpretation: Negative Thrive Assessment: Date of Thrive Assessment Date Thrive assessed 05/04/24 05/04/24 14:46 Currently or been in a relationship where the following occur: No concerns reported Const General: alert; No acute distress [facility] Head images: 1. 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 (4) HIV (human immunodeficiency virus infection): Comment: She has much improved viral load but still has low CD4 count. Code(s): B20 - Human immunodeficiency virus [HIV] disease Plan: Continue to follow-up with Infectious Disease on Biktarvy (5) Recurrent major depression: Comment: [facility] Code(s): F33.9 - Major depressive disorder, recurrent, unspecified Plan: On citalopram to continue with counseling (6) Osteoporosis: Comment: Decrease in bone density over last 2 years on alendronate Code(s): M81.0 - Age-related osteoporosis without current pathological fracture Plan: Patient has been referred by gynecology to rheumatology. but will reschedule. 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
== END 2024-05-04 15:15 | disposition home or self-care (01) ==
PROVIDERS: PCP Internal Medicine; Visit Provider Internal Medicine
DX: C44.321 Squamous cell carcinoma of skin of nose (principal); N90.89 Other specified noninflammatory disorders of vulva and perineum; Z72.0 Tobacco use; B20 Human immunodeficiency virus [HIV] disease; F33.9 Major depressive disorder, recurrent, unspecified; M81.0 Age-related osteoporosis without current pathological fracture
CPT/HCPCS: 99214

== ENCOUNTER 2024-05-07 14:15 | Outpatient (REF) | payer OTHER, SELFPAY ==
[2024-05-09 18:49] LABS: HIV RNA PCR Qn Copies 717 copies/mL (NOT DETECTED); HIV RNA PCR Qn Log Copies 2.86 (NOT DETECTED)
[2024-05-12 19:23] LABS: Absolute CD3 Count 1517 cells/uL (840-3060); Absolute CD4 Count 174 cells/uL (490-1740); Absolute CD8 Count 1329 cells/uL (180-1170); Absolute Lymphocytes 1615 cells/uL (850-3900); CD4 CD8 Ratio 0.13 (0.86-5.00); Percent CD3 Cells 94 % (57-85); Percent CD4 Cells 11 % (30-61); Percent CD8 Cells 82 % (12-42)
== END 2024-05-07 14:16 | disposition home or self-care (01) ==
LOC: HO.LAB 14:15
PROVIDERS: PCP Internal Medicine; Visit Provider Internal Medicine
DX: B20 Human immunodeficiency virus [HIV] disease (principal)
CPT/HCPCS: 36415; 86359; 86360; 87536

== ENCOUNTER 2024-05-08 13:21 | Outpatient (AMB) | payer OTHER, SELFPAY ==
--- NOTE | 2024-05-08 13:22 | MHC.OFFVIS ---
Intake Visit Reasons: Biopsy results Farm Supervisor Required: Yes Farm Supervisor Language: Rubber Mold Maker Services: Farm Supervisor Present (in person) Farm Supervisor Name: Chloe ZURITA Allergies No Known Allergies [No Known Allergies*] Allergy (Verified 05/04/24 14:39) HPI Comments Details: Presenting for follow-up after right vulvar dark lesion excision. The patient was initially seen on inspection right dark vulvar lesion was identified a punch biopsy was taken the pathology showed the following A. Vulva, right labia majora dark lesion, biopsy: Hyperkeratotic squamous intraepithelial lesion of indeterminant grade (see comment). B. Vulva, posterior fourchette, biopsy: Benign skin with minimal dermal chronic inflammation; negative for dysplasia and fungi. Comment: (A): The lesion is fragmented with crush artifact and the grade of dysplasia cannot be determined with certainty. Close follow-up is warranted. This was followed by right vulvar lesion excision, the pathology showed the following Vulva, right posterior majora, biopsy: High-grade squamous intraepithelial lesion (PAULA 2), focally extending to the peripheral edge. COMMENT: Immunostain for p16 is positive and ki-67 shows an increased proliferative index supporting the above diagnosis. Note is made of the patient's history of PAULA 3 status post excision in 05/2023 with positive margins. The patient has history of MUSHTAQ 3 status post wide local excision in 06/15 at [facility] painter touch up Oncology, pathology showed positive margins The patient is HIV positive [facility] Medical History Vulvar high-grade squamous intraepithelial lesion (HGSIL) Cough Well woman exam Skin cancer Hx LEEP (loop electrosurgical excision procedure), cervix, Tobacco abuse Osteoporosis MUSHTAQ II (cervical intraepithelial neoplasia II) Hypertriglyceridemia Insomnia Carpal tunnel syndrome, left HIV (human immunodeficiency virus infection) Surgical History Hx of colonoscopy History of orthopedic surgery History of surgery History of tubal ligation Family History Father Lung cancer Mother Colon cancer CVD (cardiovascular disease) Stroke Maternal Grandmother Uterine cancer Sister Breast cancer Social History Household Members: Spouse and Children Housing: Apartment Are you a primary child care teacher to a significant other at home: No Do you presently have visiting nurse or other home services: No Alcohol intake: never Comment: medicated in pacu Patient Tobacco Use Status: Former Tobacco user Tobacco use type: Cigarette Cigarettes Per Day: 3 Years Smoked: 20 stopped mid February 2023 e-Cigarette/Vaping Use: Never Used Second Hand Smoke Exposure: No service: No Current occupational status: disabled Cognitive needs: No Hearing needs: No Vision needs: Yes Female Reproductive History Menstrual Age of Menarche: 13 Review of Systems Const All systems reviewed & are unremarkable except as noted in HPI and below Reports as per HPI and Reports no additional complaints GI Reports no additional complaints Reports no additional complaints Telehealth Telehealth Telehealth Platform: Telephone Location of provider rendering services: practice address Location of patient: address on file Patient Identification confirmed using: Name, : Yes Telehealth method: voice only Patient verbally consented to treatment: Yes Patient verbally consented to billing insurance company: Yes Patient informed of any privacy concerns related to visit: Yes Assessment & Plan Assessment & Plan (1) PAULA II (vulvar intraepithelial neoplasia II): Comment: focal + margins h/o PAULA 3 in 06/15 with + margins Code(s): N90.1 - Moderate vulvar dysplasia Category: Medical Plan: Discussed with the patient the results the pathology showing PAULA 2 with focal positive margins, will refer to painter touch up Oncology for further management especially with a history of PAULA 3 with positive margins status post excision. All questions answered, the patient verbalized understanding I spent a total of 20 minutes reviewing the chart, talking to the patient via phone and documenting in the medical record. Orders: Referrals Gynecologic Oncology Referral N90.1 - Moderate vulvar dysplasia Coding Level of Care Code Tele Est Pt Level 1 (30770) Diagnoses PAULA II (vulvar intraepithelial neoplasia II) N90.1
== END 2024-05-08 14:33 | disposition home or self-care (01) ==
LOC: HO.HWS 13:21
PROVIDERS: PCP Internal Medicine; Visit Provider Obstetrics & Gynecology
DX: N90.1 Moderate vulvar dysplasia (principal)
CPT/HCPCS: 99211

== ENCOUNTER → 2024-05-08 13:21 | Outpatient (BNVA) | payer OTHER, SELFPAY | PROVIDERS: PCP Internal Medicine; Visit Provider Obstetrics & Gynecology ==

== ENCOUNTER 2024-05-13 14:47 | Outpatient (AMB) | payer OTHER, SELFPAY ==
[2024-05-13 14:52] VITALS: PULSE 73; O2SAT 98
--- NOTE | 2024-05-13 14:52 | MHC.OFFVIS ---
Vital Signs 05/13/24 14:52 Weight 116 lb Pulse 73 Pulse Source Pulse Oximeter Pulse Oximetry (%) 98 Intake Visit Reasons: 6 month hiv/lab follow up Osteology Teacher Required: Yes Osteology Teacher Services: Osteology Teacher Present Osteology Teacher Name: Fish Gonzalez CMA Information Interpreted: clinical only Allergies No Known Allergies [No Known Allergies*] Allergy (Verified 05/13/24 15:04) HPI HPI 6 month hiv/lab follow up: Details: She remains on Biktarvy and Mepron for PJP prophylaxis. She has CD4 count of 174 and viral load of 717 on 05/07 and reports perfect adherence. [facility] Medical History Vulvar high-grade squamous intraepithelial lesion (HGSIL) Cough Well woman exam Skin cancer Hx LEEP (loop electrosurgical excision procedure), cervix, Tobacco abuse Osteoporosis MUSHTAQ II (cervical intraepithelial neoplasia II) Hypertriglyceridemia Insomnia Carpal tunnel syndrome, left HIV (human immunodeficiency virus infection) Surgical History Hx of colonoscopy History of orthopedic surgery History of surgery History of tubal ligation Family History Father Lung cancer Mother Colon cancer CVD (cardiovascular disease) Stroke Maternal Grandmother Uterine cancer Sister Breast cancer Social History Household Members: Spouse and Children Housing: Apartment Are you a primary residential caregiver to a significant other at home: No Do you presently have visiting nurse or other home services: No Alcohol intake: never Comment: medicated in pacu Patient Tobacco Use Status: Former Tobacco user Tobacco use type: Cigarette Cigarettes Per Day: 3 Years Smoked: 20 stopped mid February 2023 e-Cigarette/Vaping Use: Never Used Second Hand Smoke Exposure: No service: No Current occupational status: disabled Cognitive needs: No Hearing needs: No Vision needs: Yes Female Reproductive History Menstrual Age of Menarche: 13 Review of Systems Const All systems reviewed & are unremarkable except as noted in HPI and below Physical Exam Vital Signs: Last Vital Signs Pulse 73 05/13/24 14:52 Pulse Ox 98 05/13/24 14:52 Const General: cooperative Orientation/consciousness: patient oriented x3 HEENT Other: facial scarring ?Mohs surgery Mouth: Normal oral and palatal mucosa present Eyes General: appearance normal, both eyes and all related structures Pupils: Equal, round and reactive pupils present Resp Effort & Inspection: normal respiratory effort Cardio Rate: regular rate Rhythm: regular rhythm GI Palpation (GI): Soft to palpation and nontender General: Yes no CVA tenderness Back/Spine/Pelvis Back: no CVA tenderness Skin General skin exam: no rashes or lesions noted Neuro General: patient oriented x3 Cranial nerves: Yes CN's II-XII intact bilaterally and Yes Equal, round and reactive pupils present Extrem General: Yes normal to inspection Psych Appearance: grossly normal Assessment & Plan Assessment & Plan (1) HIV (human immunodeficiency virus infection): Comment: She has much improved viral load but still has low CD4 count. Code(s): B20 - Human immunodeficiency virus [HIV] disease Category: Medical Plan: Continue Biktarvy. Continue Mepron. Adherence stressed. Rectal and vaginal eval due to HPV concerns. Genotype next visit consider See in six months with labs before. Orders: Orders HIV-1 RNA QN PCR Expanded 3 Months B20 - Human immunodeficiency virus [HIV] disease Medications: New atovaquone must administer with food, preferably a high-fat meal 1,500 mg (10 mL) PO DAILY 300 mL 11RF 30 days Refilled zqwqngwer-khufrffg-szfkxrd ala 50-200-25 mg (Biktarvy) 1 tab PO DAILY 30 tabs 5RF 30 days Coding Level of Care Code Est Pt Level 4 (52238) Diagnoses HIV (human immunodeficiency virus infection) B20
== END 2024-05-13 15:44 | disposition home or self-care (01) ==
LOC: HO.HID 14:47
PROVIDERS: Visit Provider Internal Medicine
DX: B20 Human immunodeficiency virus [HIV] disease (principal)
CPT/HCPCS: 99214

== ENCOUNTER → 2024-05-13 14:47 | Outpatient (BNVA) | payer OTHER, SELFPAY | PROVIDERS: Visit Provider Internal Medicine | DX: B20 Human immunodeficiency virus [HIV] disease (principal); Z79.899 Other long term (current) drug therapy | CPT/HCPCS: 99212 ==

== ENCOUNTER 2024-11-14 07:40 | Outpatient (REF) | payer OTHER, SELFPAY ==
[2024-11-14 07:59] LABS: MANUAL DIFF FLAG NO
[2024-11-14 09:14] LABS: Basophils Percent Auto 0.5 % (0-2); Eosinophils Percent Auto 0.3 % (0-4); Hematocrit 36.1 % (37.0-47.0); Hemoglobin 11.7 g/dl (12.0-16.0); Imm Gran Abs Auto 0.02 X10*3/uL (0.00-0.03); Imm Gran Pct Auto 0.3 % (0.0-0.4); Lymphocytes Absolute Auto 1.8 X10*3/uL (1.2-4.9); Lymphocytes Percent Auto 29.9 % (20-40); Mean Corpuscular HGB Conc 32.4 g/dl (31.0-35.0); Mean Corpuscular Hemoglobin 28.5 pg (27.0-33.0); Mean Corpuscular Volume 87.8 fL (80.0-98.0); Monocytes Absolute Auto 0.8 X10*3/uL (0.1-1.2); Monocytes Percent Auto 12.9 % (2-11); Neutrophils Absolute Auto 3.3 x10*3/uL (2.0-8.3); Neutrophils Percent Auto 56.1 % (45-73); Red Blood Count 4.11 X10*6/uL (4.20-5.50); Red Cell Distribution Width 21.7 % (11.0-16.0)
[2024-11-14 09:15] LABS: Platelet Count 84 X10*3/uL (160-400)
[2024-11-14 10:11] LABS: Alanine Aminotransferase 7 U/L (0-31); Albumin Level 3.7 g/dL (3.5-5.0); Alkaline Phosphatase 95 U/L (39-117); Anion Gap 12 (12-20); Aspartate Amino Transferase 16 U/L (5-31); Bilirubin Direct 0.1 mg/dL (0.0-0.5); Bilirubin Total 0.3 mg/dL (0.0-1.0); Blood Urea Nitrogen 9 mg/dL (9-16); Calcium 10.6 mg/dL (8.4-10.2); Carbon Dioxide 28 mmol/L (22-29); Chloride 102 mmol/L (96-108); Estimated Glomerular Filt Rate > 60; Glucose Random 110 mg/dL (60-115); Potassium 3.7 mmol/L (3.3-5.1); Sodium 138 mmol/L (135-145); Total Protein 8.1 g/dL (6.5-8.0)
[2024-11-16 13:14] LABS: HIV RNA PCR Qn Copies 46 copies/mL (NOT DETECTED); HIV RNA PCR Qn Log Copies 1.66 (NOT DETECTED)
[2024-11-17 17:48] LABS: Absolute CD3 Count 1571 cells/uL (840-3060); Absolute CD4 Count 145 cells/uL (490-1740); Absolute CD8 Count 1420 cells/uL (180-1170); Absolute Lymphocytes 1611 cells/uL (850-3900); Percent CD3 Cells 97 % (57-85); Percent CD4 Cells 9 % (30-61); Percent CD8 Cells 88 % (12-42)
== END 2024-11-14 07:41 | disposition home or self-care (01) ==
LOC: HO.LAB 07:40
PROVIDERS: PCP Internal Medicine; Visit Provider Internal Medicine
DX: B20 Human immunodeficiency virus [HIV] disease (principal)
CPT/HCPCS: 36415; 80048; 80076; 85025; 86359; 86360; 87536

== ENCOUNTER 2024-11-25 13:39 | Outpatient (AMB) | payer OTHER, SELFPAY ==
--- NOTE | 2024-11-25 17:27 | MHC.OFFVIS ---
Intake Visit Reasons: hiv lab follow up Allergies No Known Allergies [No Known Allergies*] Allergy (Verified 05/13/24 15:04) HPI Comments Details: She reports not being well enough to come to visit. 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 She has received chemotherapy for this and may lose vision in left eye. Malignancy has continued to progress. She has CD4 count of 145 and viral laod 46 on 11/14/2024. She continues to take Biktarvy. She sees Dr Tariq of Psych Coordinator for PAULA-3. [facility] Medical History (Updated 11/25/24 @ 17:33 by Karely Mckeon MD) AIDS Vulvar high-grade squamous intraepithelial lesion (HGSIL) Cough Well woman exam Skin cancer Hx LEEP (loop electrosurgical excision procedure), cervix, Tobacco abuse Osteoporosis MUSHTAQ II (cervical intraepithelial neoplasia II) Hypertriglyceridemia Insomnia Carpal tunnel syndrome, left HIV (human immunodeficiency virus infection) Surgical History Hx of colonoscopy History of orthopedic surgery History of surgery History of tubal ligation Family History Father Lung cancer Mother Colon cancer CVD (cardiovascular disease) Stroke Maternal Grandmother Uterine cancer Sister Breast cancer Social History Household Members: Spouse and Children Housing: Apartment Are you a primary child care giver to a significant other at home: No Do you presently have visiting nurse or other home services: No Alcohol intake: never Comment: medicated in pacu Patient Tobacco Use Status: Former Tobacco user Tobacco use type: Cigarette Cigarettes Per Day: 3 Years Smoked: 20 stopped mid February 2023 e-Cigarette/Vaping Use: Never Used Second Hand Smoke Exposure: No service: No Current occupational status: disabled Cognitive needs: No Hearing needs: No Vision needs: Yes Female Reproductive History Menstrual Age of Menarche: 13 Review of Systems Const All systems reviewed & are unremarkable except as noted in HPI and below Telehealth Telehealth Telehealth Platform: Telephone Location of provider rendering services: practice address Location of patient: address on file Patient Identification confirmed using: Name, : Yes Telehealth method: voice only Patient verbally consented to billing insurance company: Yes Patient informed of any privacy concerns related to visit: Yes Minutes spent on Phone/Video with Pt.: 20 Assessment & Plan Assessment & Plan (1) AIDS: Comment: She has CD4 count under 200. She should continue Biktarvy Stop smoking with Chantix (ordered) Labs and visit May 2025. Continue Fosamax Continue Mepron. Celexa made her sleepy so start Zoloft Anal Pap with Psych Coordinator. Code(s): B20 - Human immunodeficiency virus [HIV] disease Category: Medical Plan: na Plan na Orders: Orders Complete Blood Count Auto Diff 5 Months B20 - Human immunodeficiency virus [HIV] disease Liver Panel 5 Months B20 - Human immunodeficiency virus [HIV] disease HIV-1 RNA QN PCR Expanded 5 Months B20 - Human immunodeficiency virus [HIV] disease Lymphocyte Subset Panel 3 5 Months B20 - Human immunodeficiency virus [HIV] disease Basic Metabolic Panel 5 Months B20 - Human immunodeficiency virus [HIV] disease Medications: New sertraline (Zoloft) 25 mg PO DAILY 30 days 30 tabs 11RF varenicline tartrate (Chantix Starting Month Box) PO PER PKG DIR 53 ea 0RF Refilled atovaquone must administer with food, preferably a high-fat meal 1,500 mg (10 mL) PO DAILY 30 days 300 mL 11RF rizmvkixv-prdebhcp-pwhrtzg ala 50-200-25 mg (Biktarvy) 1 tab PO DAILY 30 days 30 tabs 5RF Coding Level of Care Code Tele Est Pt Level 3 (30621) Diagnoses AIDS B20
== END 2024-11-25 13:40 | disposition home or self-care (01) ==
LOC: HO.HID 13:39
PROVIDERS: PCP Internal Medicine; Visit Provider Internal Medicine
DX: B20 Human immunodeficiency virus [HIV] disease (principal)
CPT/HCPCS: 99213

== ENCOUNTER → 2024-11-25 13:39 | Outpatient (BNVA) | payer OTHER, SELFPAY | PROVIDERS: PCP Internal Medicine; Visit Provider Internal Medicine ==

== ENCOUNTER → 2025-03-11 23:59 | Outpatient (BNV) | payer OTHER, SELFPAY | PROVIDERS: PCP Internal Medicine; Visit Provider Internal Medicine | DX: L03.311 Cellulitis of abdominal wall (principal); Z43.1 Encounter for attention to gastrostomy; E87.1 Hypo-osmolality and hyponatremia | CPT/HCPCS: G0180 ==